=== PATIENT | male | born 1935 | race Caucasian/White ===

== ENCOUNTER → 2020-08-05 13:54 | Outpatient (REF) | payer MEDICARE, SELFPAY ==
--- NOTE | 2020-08-05 14:25 | ECG_ITS ---
Hook-up date: 2020-08-05 14:14:00 Duration: 24:47:00 Test Indications: UNSPEC. BRADYCARDIA Medications: 60082 QRS complexes 47 Ventricular ectopics which represent <1 % of total QRS comp. 12 Supraventricular ectopics which represent <1 % of total QRS comp. * Paced QRS complexs which represent % of total QRS comp. VENTRICULAR ECTOPY 42 Isolated 0 Bigeminal Cycles 1 Couplets 1 Runs 3 Beats in Runs 3 Beats LONGEST at 153 BPM at 10:09:03 2020-08-06 3 Beats FASTEST at 153 BPM at 10:09:03 2020-08-06 SUPRAVENTRICULAR ECTOPY 8 Isolated 2 Couplets 0 Runs 0 Beats in Runs * Beats LONGEST at * BPM at :: -- * Beats FASTEST at * BPM at :: -- HEART RATES 44 MIN at 16:02:12 2020-08-05 61 AVG 107 MAX at 10:02:51 2020-08-06 LONGEST RR 1.5520 secs at 16:11:59 2020-08-05 S-T LEVELS Channel 1 - 128 mm at 14:14:00 2020-08-05 - 128 mm at 14:14:00 2020-08-05 Channel 2 - 128 mm at 14:14:00 2020-08-05 - 128 mm at 14:14:00 2020-08-05 Channel 3 - 128 mm at 03:33:31 -- - 128 mm at 03:33:31 Basic rhythm Normal sinus rhythm No long pause or profound bradycardia Rare Premature ventricular complexes No sustained Atrial fibrillation One 3 beat run of NSVTat 153 bpm Patient did not report any symptoms in the diary Referred By: Mateo Prado Overread By: MATEO PRADO MD
== END ==
LOC: HO.CARD 13:54
PROVIDERS: PCP Internal Medicine; Visit Provider Internal Medicine Cardiovascular Disease
DX: R00.1 Bradycardia, unspecified (principal)
CPT/HCPCS: 93225; 93226

== ENCOUNTER → 2020-08-21 14:03 | Outpatient (BNVA) | payer MEDICARE, SELFPAY | PROVIDERS: PCP Internal Medicine; Visit Provider Internal Medicine Cardiovascular Disease | DX: I48.0 Paroxysmal atrial fibrillation (principal) | CPT/HCPCS: 99212 ==

== ENCOUNTER → 2021-02-25 09:22 | Outpatient (BNVA) | payer MEDICARE, SELFPAY | PROVIDERS: PCP Internal Medicine; Visit Provider Internal Medicine Cardiovascular Disease | DX: I48.0 Paroxysmal atrial fibrillation (principal); I77.89 Other specified disorders of arteries and arterioles | CPT/HCPCS: 93005; 99212 ==

== ENCOUNTER → 2021-03-14 07:28 | Outpatient (REF) | payer MEDICARE, SELFPAY ==
--- NOTE | 2021-03-14 07:30 | CA_ITS ---
Transthoracic Echocardiogram Patient (Last, First, Middle): Bill Hodge D Gender: Male Date of : 1935 Age: 86 Procedure Date: 03/14/2021 Procedure Type: Transthoracic Echocardiogram Location: OP Height: 157.48 cm Weight: 68.95 kg BSA: 1.70 m2 Heart Rate: bpm BP: 118 / 60 mmHg Die Press Operator: Referring MD: Mateo Prado MD Ore Charger: Maeto Prado MD Symptoms: I48.0 - Paroxysmal atrial fibrillation Study Quality: Good ECG Rhythm: Sinus Conclusions: - 1. Normal LV systolic function with grade 1 diastolic dysfunction 2. Mild left atrial enlargement 3. Mild aortic and mitral regurgitation 4. Mildly dilated ascending aorta next 5. Normal RV systolic pressure 6. No pericardial effusion Findings Left Ventricle Normal left ventricular size, thickness, and systolic function. The visually estimated ejection fraction is between 60-65%. Spectral Doppler is indicative of an impaired relaxation filling pattern. E/E prime ratio is <8, consistent with normal filling pressures. Evidence suggests grade I (mild) diastolic dysfunction. Right Ventricle Normal right ventricular cavity size and systolic function. Atria The left atrium is mildly dilated. There is no evidence of interatrial shunt. The right atrium is likely dilated. Aortic Valve Normal aortic valve structure and function. There is no aortic valve stenosis. There is mild aortic valve regurgitation. Mitral Valve Normal mitral valve structure and function. There is mild mitral valve regurgitation. There is no mitral valve stenosis. Pulmonic Valve The pulmonic valve is likely normal. There is trace pulmonic valve regurgitation. Tricuspid Valve Normal tricuspid valve structure. There is mild tricuspid valve regurgitation. The right ventricular systolic pressure is normal. The right ventricular systolic pressure is 19 mmHg. Normal right atrial pressure. There is no evidence of pulmonary hypertension. Great Vessels The pulmonary artery was not well visualized. There is mild dilatation of the ascending aorta measuring 4.00 cm. Venous The inferior vena cava is normal in size and collapses greater than 50% with inspiration. Pericardium/Pleural There is no evidence of pericardial effusion. Prior Study Comparison No significant change compared to prior study dated: 04/25/2019. Measurements 2D Linear Measurements IVSd: 1.12 0.6-0.9/0.6-1.0 cm LVIDd: 4.61 3.9-5.3/4.2-5.9 cm LVIDd Index: 2.71 2.4-3.2/2.2-3.1 cm/m2 LVIDs: 2.58 2.0-3.6 cm LVPWd: 1.08 0.7-1.1 cm Ao Root: 3.50 2.1-3.5 cm LA Diam: 3.20 2.7-3.8/3.0-4.0 cm LAIDs Index: 1.88 1.5-2.3 cm/m2 LV Mass: 226.56 67-162/88-224 g LV Mass Index: 133.27 43-95/49-115 g/m2 LVOT Diam: 2.10 3.0+(-)1.3 cm Mitral Valve MV Pk E: 0.53 MV PK A: 0.83 MV Decel Time: 268.00 E/A: 0.60 E'Lateral: 8.49 E'Medial: 6.09 E/E' Med: 8.70 E/E' Lat: 6.20 PHT: 79.00 MVA PHT: 2.78 Decel [place]: 1.96 Aortic Valve AoV Pk Ciro: 1.32 AoV Mn Ciro: 0.86 AoV VTI: 0.33 AoV Pk Grad: 7.00 Aov Mn Grad: 4.00 BENNY Cont.VTI: 2.50 LVOT LVOT Pk Ciro: 0.98 LVOT Mn Ciro: 0.61 LVOT VTI: 0.24 LVOT Pk Grad: 4.00 LVOT Mn Grad: 2.00 LVOT Diam: 2.10 LVOT Area: 3.46 Diastolic Function MV Pk E: 0.53 MV Pk A: 0.83 E/A: 0.60 E'Medial: 6.09 E/E' Med: 8.70 E' Laterial: 8.49 E/E' Lat: 6.20 Tricuspid Valve TR Pk Ciro: 2.02 TR Pk Grad: 16.00 RA Press: 3.00 RVSP: 19.00 Great Vessels Aorta Ao Root-2D: 3.50 2.0-3.7 cm Ao Asc: 4.00 2.1-3.4 cm Pulmonary Valve PV Pk Ciro: 0.75 Peak PV Grad: 2.00 Updated in Other Vendor System with Status of Final Mateo Prado MD electronically signed on 03/15/2021 2:25:06 PM with status of Final
== END ==
LOC: HO.CARD 07:28
PROVIDERS: PCP Internal Medicine; Visit Provider Internal Medicine Cardiovascular Disease
DX: I48.0 Paroxysmal atrial fibrillation (principal)
CPT/HCPCS: 93306

== ENCOUNTER 2021-05-23 07:53 | Observation (INO) | payer MEDICARE, SELFPAY ==
[2021-05-23] VITALS (11 sets, daily range): BP systolic 104–144; BP diastolic 6–76; PULSE 46–86; RESP 12–20; TEMP 36.1–36.6; O2SAT 95–99; BMI 20.2
--- NOTE | ~2021-05-23 | CT_ITS ---
EXAMINATION: CT HEAD WITHOUT CONTRAST CLINICAL INFORMATION: Lightheadedness COMPARISON: CT head 05/17/2015 TECHNIQUE: Contiguous axial imaging was performed from the skull base to vertex without intravenous administration of contrast. Additional 2-D coronal and sagittal reformatted images are generated on the CT workstation and uploaded to PACS. This CT examination was performed using dose optimization techniques as appropriate, variously including the following: *Automated exposure control *Adjustment of mA and/or kV according to patient size (this includes techniques or standardized protocols for targeted exams where dose is matched to indication/reason for exam; i.e. extremities or head) *Use of iterative reconstruction technique DLP: 629 mGy-cm FINDINGS: There is no intracranial hemorrhage, hematoma, or extra-axial fluid collection. The ventricles are normal in size. There is no hydrocephalus, edema, or mass effect. The hameed-white matter differentiation appears symmetric. There is no visible acute territorial infarct or mass lesion. There are atherosclerotic calcifications involving the distal vertebral and distal internal carotid arteries. The calvarium appears intact. There is no pneumocephalus or orbital emphysema. There are no air-fluid levels in the visualized sinuses and middle ears or mastoids. Some mild mucosal thickening present posterior lateral left maxillary sinus. CT/CT head/brain wo con IMPRESSION: No acute intracranial abnormality.
--- NOTE | ~2021-05-23 | XR_ITS ---
EXAMINATION: XR CHEST CLINICAL INFORMATION: Pneumonia? COMPARISON: 08/21/2019 TECHNIQUE: Frontal view of the chest was obtained. FINDINGS: Lungs are clear. No focal consolidation or mass. Normal pulmonary vascularity. No pleural effusion or pneumothorax. Calcified aortic arch. Degenerative changes of the shoulders. XR/XR chest 1V IMPRESSION: No acute pulmonary disease.
--- NOTE | 2021-05-23 07:39 | ECG_ITS ---
Test Reason : LIGHTHEADED Blood Pressure : / mmHG Vent. Rate : 050 BPM Atrial Rate : 050 BPM P-R Int : 202 ms QRS Dur : 078 ms QT Int : 436 ms P-R-T Axes : 028 028 047 degrees QTc Int : 397 ms Sinus bradycardia Otherwise normal ECG When compared with ECG of 21-AUG-2019 03:18, No significant change was found Referred By: Indio Gaines Electronically Signed By:ELIZABETH MARTINO
[2021-05-23] MEDS: 0.9 % Sodium Chloride 1,000 ML 999 ML IV (08:35)
--- NOTE | 2021-05-23 08:41 | ED.GENADULT ---
HPI - General Adult General Chief complaint: Dizziness Stated complaint: lightheaded Time Seen by Provider: 05/23/21 08:07 Source: patient Mode of arrival: ambulatory Limitations: no limitations History of Present Illness HPI narrative: Patient presents to ED for lightheadedness. Patient states he woke this morning around 06:00 feeling lightheaded. Patient described lightheaded as just feeling off. Patient denies any sensation of dizziness. Patient denies any chest pain, shortness of breath, slurred speech, loss of vision, paralysis of extremities, weakness, difficulty ambulating, or tingling. Patient denies any abdominal pain, constipation, diarrhea, or loss of appetite. Patient did not take his meds this morning so can be evaluated in the ER. Patient takes only taking amiodarone and Xarelto. Patient states just feels a lightheaded. Related Data Home Medications Medication Instructions Recorded Confirmed alendronate 70 mg tablet 70 mg PO QWEEK 08/21/20 05/23/21 calcium carbonate 600 mg calcium 600 mg PO BID 05/23/21 05/23/21 (1,500 mg) tablet (Calcium) multivitamin 1 tab PO DAILY 05/23/21 05/23/21 vit C 250 mg-vit E 90 mg-zinc 40 1 tab PO DAILY 05/23/21 05/23/21 mg-copper 1 [id number]-nintba capsule (PreserVision AREDS-2) Previous Rx's Medication Instructions Recorded amiodarone 200 mg tablet 100 mg PO DAILY 30 Days #15 tab 02/25/21 rivaroxaban 15 mg tablet (Xarelto) 15 mg PO QPM #90 tab 04/08/21 Allergies Allergy/AdvReac Type Severity Reaction Status Date / Time novacain Allergy Unknown syncope Uncoded 04/01/20 00:00 From Novocain AdvReac Severe SYNCOPE Uncoded 05/30/20 16:04 (CHILDHOOD) Novocain AdvReac Unknown syncope Uncoded 05/13/17 00:00 Review of Systems Review of Systems: Yes all other systems are reviewed and are negative Constitutional: Constitutional: Reports as per HPI and Reports no additional constitutional complaints Eyes: Eyes: Reports as per HPI and Reports no additional eye complaints ENT: Reports system reviewed and no additional complaints, except as documented and Reports as per HPI Cardiovascular: Cardiovascular: Reports as per HPI and Reports no additional cardiovascular complaints Respiratory: Respiratory: Reports as per HPI and Reports no additional respiratory complaints Gastrointestinal: Gastrointestinal: Reports as per HPI and Reports no additional gastrointestinal complaints Genitourinary: Genitourinary: Reports no additional male genitourinary complaints and Reports as per HPI Musculoskeletal: Musculoskeletal: Reports no additional musculoskeletal complaints and Reports as per HPI Neurologic: Reports system reviewed and no additional complaints, except as documented and Reports as per HPI Comments: Lightheaded Psychiatric: Psychiatric: Reports no additional psychiatric complaints and Reports as per HPI [facility] Past Medical History Medical History Enlarged thoracic aorta Paroxysmal atrial fibrillation Surgical History Hx of appendectomy Hx of basal cell carcinoma excision Hx of cataract surgery Hx of colonoscopy Hx of hernia repair Hx of prostate biopsy Family History Family History Father Throat cancer Mother Parkinson disease Social History Social History Alcohol intake: never Patient Tobacco Use Status: Former Tobacco user Smoked in Last 30 Days: No Advance Directives: No Physical Exam Vital Signs: Vital Signs: Last Vital Signs Temp 97.9 F 05/23/21 08:36 Pulse 50 05/23/21 12:49 Resp 18 05/23/21 12:49 BP 144/67 H 05/23/21 12:49 Pulse Ox 95 05/23/21 12:49 Body Mass Index 20.2 Const: General: cooperative, healthy appearing, comfortable, no acute distress, well developed, alert, awake and Physically active HENMT: Head: Yes normal to inspection, Yes No palpable skull fracture present, Yes normocephalic and Yes atraumatic Eyes: General: appearance normal, both eyes and all related structures Neck: Neck: Yes normal visual inspection, Yes full ROM, Yes no lymphadenopathy, Yes no meningeal signs, Yes trachea midline, Yes supple and No tender Chest: Chest palpation & inspection: normal inspection of the chest and normal palpation of entire chest wall Resp: Effort & Inspection: normal respiratory effort and able to speak in complete sentences Auscultation: clear to auscultation bilaterally Cardio: Jugular venous distension: no JVD Heart sounds: S1 normal heart sound present and S2 normal heart sound present GI: Inspection: Yes normal to inspection and No abdominal wall ecchymosis Palpation (GI): Soft to palpation, not firm, nontender, no guarding and not rigid : General: No CVA tenderness and Yes no CVA tenderness Back/Spine/Pelvis: Back: no CVA tenderness, No CVA tenderness and No back tenderness Skin: General skin exam: no rashes or lesions noted and elasticity normal Neuro: Other: Negative facial droop. Negative slurred speech. Negative pronator drift. All extremities equal strength 5+. Finger to nose and rapid hand movement intact. Negative rhomberg General: gait normal, no meningeal signs and CN's II-XI intact bilaterally Cranial nerves: Yes CN's II-XII intact bilaterally Extrem: General: Yes normal to inspection and Yes full ROM NIH Stroke Scale Level of Consciousness: Alert Level of Consciousness Questions: Answers both questions correctly Level of Consciousness Commands: Performs both tasks correctly Best Gaze: Normal Visual: No visual loss Facial Palsy: Normal Motor Arm (Right): No drift Motor Arm (Left): No drift Motor Leg (Right): No drift Motor Leg (Left): No drift Limb Ataxia: Absent Sensory: Normal Best Language: No aphasia Dysarthia: Normal Extinction and Inattention: No abnormality Score: 0 Course Course Course Narrative: Negative for any neuro deficit was still do head CT scan. Will order labs including cardiac workup and thyroid level and other electrolytes. EKG ordered Reevaluation(s) Reevaluation #1: Patient heart rate 42 on monitor. EKG sinus bradycardia. Time: 09:08 Reevaluation #2: Chest x-ray negative for pneumonia. COVID swab is negative. UA negative for UTI. Electrolytes are normal. CBCs at baseline. Coags normal. First troponin 5. Head CT normal. Patient has normal gait walk many times to the bathroom by himself. Patient presently denies any dizziness. No indication for head CTA. History physical exam does not indicate stroke. Patient discussed with Dr. White who agree with plan. Time: 10:08 Reevaluation #3: Spoke with Dr. Cook of Cardiology who agrees patient should be admitted to the hospital for bradycardia with heart rate in the 40s with lightheadedness. Time: 11:02 Medical Decision Making MDM Narrative Medical decision making narrative: Symptomatic bradycardia Lab Data Result diagrams: 05/23/21 08:31 05/23/21 08:31 Labs: Lab Results 05/23/21 05/23/21 05/23/21 Range/Units 08:31 08:31 08:31 WBC 5.2 (4.8-10.8) X10*3/uL RBC 4.14 L (4.60-5.80) X10*6/uL Hgb 12.7 L (14.0-18.0) g/dl Hct 38.3 L (42-52) % MCV 92.5 (80-98) fL MCH 30.7 (27.0-33.0) pg MCHC 33.2 (31.0-36.0) g/dl RDW 12.5 (11.0-16.0) % Plt Count 215 (160-400) X10*3/uL MPV 10.4 (9.4-12.4) fL Immature Gran % (Auto) 0.2 (0.0-0.4) % Neut % (Auto) 68.5 (45-73) % Lymph % (Auto) 19.3 L (20-40) % [place] % (Auto) 8.5 (2-11) % Eos % (Auto) 3.1 (0-4) % Baso % (Auto) 0.4 (0-2) % Lymph # (Auto) 1.0 L (1.2-4.9) X10*3/uL [place] # (Auto) 0.4 (0.1-1.2) X10*3/uL Eos # (Auto) 0.2 (0.0-0.4) X10*3/uL Baso # (Auto) 0.0 (0.0-0.2) X10*3/uL Abs Immat Gran (auto) 0.01 (0.00-0.03) X10*3/uL Absolute Neuts (auto) 3.6 (2.0-8.3) X10*3/uL Absolute Nucleated RBC 0.000 (0.0-0.012) X10*3/uL Nucleated RBC % (auto) 0.0 (0.0-0.2) /100WBC PT 12.9 (9.9-13.0) SEC INR 1.1 (0.9-1.1) APTT 35.1 (24.1-38.0) SEC Sodium 141 (135-145) mmol/L Potassium 4.4 (3.3-5.1) mmol/L Chloride 107 (96-108) mmol/L Carbon Dioxide 26 (22-29) mmol/L Anion Gap 12 (12-20) BUN 22 H (9-16) mg/dL Creatinine 1.08 (0.5-1.4) mg/dL Estim Creat Clear Calc 44.5 Estimated GFR > 60 Random Glucose 97 (60-115) mg/dL Calcium 9.0 (8.4-10.2) mg/dL Magnesium 2.3 (1.6-2.6) mg/dL Total Bilirubin 0.7 (0.0-1.0) mg/dL Direct Bilirubin 0.2 (0.0-0.5) mg/dL AST 20 (5-37) U/L ALT 24 (0-40) U/L Alkaline Phosphatase 42 (39-117) U/L Total Creatine Kinase 59 (38-174) U/L Troponin I High Sens (<3.5-35.0) ng/L B-Natriuretic Peptide (<100) pg/mL Total Protein 6.2 L (6.5-8.0) g/dL Albumin 3.8 (3.5-5.0) g/dL Lipase 17 (8-78) U/L TSH (0.32-4.0) uIU/mL Urine Color Urine Appearance Urine pH (5.0-8.0) Ur Specific [place] (1.005-1.025) Urine Protein (NEG-TRACE) MG/DL Urine Glucose (UA) (NEG) MG/DL Urine Ketones (NEG) MG/DL Urine Blood (NEG) Urine Nitrite (NEG) Ur Leukocyte Esterase (NEG) COVID-19 ([facility]) (Negative) COVID-19 Clin Com 05/23/21 05/23/21 05/23/21 Range/Units 08:31 08:31 09:27 WBC (4.8-10.8) X10*3/uL RBC (4.60-5.80) X10*6/uL Hgb (14.0-18.0) g/dl Hct (42-52) % MCV (80-98) fL MCH (27.0-33.0) pg MCHC (31.0-36.0) g/dl RDW (11.0-16.0) % Plt Count (160-400) X10*3/uL MPV (9.4-12.4) fL Immature Gran % (Auto) (0.0-0.4) % Neut % (Auto) (45-73) % Lymph % (Auto) (20-40) % [place] % (Auto) (2-11) % Eos % (Auto) (0-4) % Baso % (Auto) (0-2) % Lymph # (Auto) (1.2-4.9) X10*3/uL [place] # (Auto) (0.1-1.2) X10*3/uL Eos # (Auto) (0.0-0.4) X10*3/uL Baso # (Auto) (0.0-0.2) X10*3/uL Abs Immat Gran (auto) (0.00-0.03) X10*3/uL Absolute Neuts (auto) (2.0-8.3) X10*3/uL Absolute Nucleated RBC (0.0-0.012) X10*3/uL Nucleated RBC % (auto) (0.0-0.2) /100WBC PT (9.9-13.0) SEC INR (0.9-1.1) APTT (24.1-38.0) SEC Sodium (135-145) mmol/L Potassium (3.3-5.1) mmol/L Chloride (96-108) mmol/L Carbon Dioxide (22-29) mmol/L Anion Gap (12-20) BUN (9-16) mg/dL Creatinine (0.5-1.4) mg/dL Estim Creat Clear Calc Estimated GFR Random Glucose (60-115) mg/dL Calcium (8.4-10.2) mg/dL Magnesium (1.6-2.6) mg/dL Total Bilirubin (0.0-1.0) mg/dL Direct Bilirubin (0.0-0.5) mg/dL AST (5-37) U/L ALT (0-40) U/L Alkaline Phosphatase (39-117) U/L Total Creatine Kinase (38-174) U/L Troponin I High Sens 5.2 (<3.5-35.0) ng/L B-Natriuretic Peptide 76 (<100) pg/mL Total Protein (6.5-8.0) g/dL Albumin (3.5-5.0) g/dL Lipase (8-78) U/L TSH (0.32-4.0) uIU/mL Urine Color STRAW Urine Appearance CLEAR Urine pH 7.5 (5.0-8.0) Ur Specific [place] 1.010 (1.005-1.025) Urine Protein NEG (NEG-TRACE) MG/DL Urine Glucose (UA) NEG (NEG) MG/DL Urine Ketones NEG (NEG) MG/DL Urine Blood NEG (NEG) Urine Nitrite NEG (NEG) Ur Leukocyte Esterase NEG (NEG) COVID-19 ([facility]OS[facility]) Negative (Negative) COVID-19 Clin Com See Note 05/23/21 Range/Units 09:45 WBC (4.8-10.8) X10*3/uL RBC (4.60-5.80) X10*6/uL Hgb (14.0-18.0) g/dl Hct (42-52) % MCV (80-98) fL MCH (27.0-33.0) pg MCHC (31.0-36.0) g/dl RDW (11.0-16.0) % Plt Count (160-400) X10*3/uL MPV (9.4-12.4) fL Immature Gran % (Auto) (0.0-0.4) % Neut % (Auto) (45-73) % Lymph % (Auto) (20-40) % [place] % (Auto) (2-11) % Eos % (Auto) (0-4) % Baso % (Auto) (0-2) % Lymph # (Auto) (1.2-4.9) X10*3/uL [place] # (Auto) (0.1-1.2) X10*3/uL Eos # (Auto) (0.0-0.4) X10*3/uL Baso # (Auto) (0.0-0.2) X10*3/uL Abs Immat Gran (auto) (0.00-0.03) X10*3/uL Absolute Neuts (auto) (2.0-8.3) X10*3/uL Absolute Nucleated RBC (0.0-0.012) X10*3/uL Nucleated RBC % (auto) (0.0-0.2) /100WBC PT (9.9-13.0) SEC INR (0.9-1.1) APTT (24.1-38.0) SEC Sodium (135-145) mmol/L Potassium (3.3-5.1) mmol/L Chloride (96-108) mmol/L Carbon Dioxide (22-29) mmol/L Anion Gap (12-20) BUN (9-16) mg/dL Creatinine (0.5-1.4) mg/dL Estim Creat Clear Calc Estimated GFR Random Glucose (60-115) mg/dL Calcium (8.4-10.2) mg/dL Magnesium (1.6-2.6) mg/dL Total Bilirubin (0.0-1.0) mg/dL Direct Bilirubin (0.0-0.5) mg/dL AST (5-37) U/L ALT (0-40) U/L Alkaline Phosphatase (39-117) U/L Total Creatine Kinase (38-174) U/L Troponin I High Sens (<3.5-35.0) ng/L B-Natriuretic Peptide (<100) pg/mL Total Protein (6.5-8.0) g/dL Albumin (3.5-5.0) g/dL Lipase (8-78) U/L TSH 0.81 (0.32-4.0) uIU/mL Urine Color Urine Appearance Urine pH (5.0-8.0) Ur Specific [place] (1.005-1.025) Urine Protein (NEG-TRACE) MG/DL Urine Glucose (UA) (NEG) MG/DL Urine Ketones (NEG) MG/DL Urine Blood (NEG) Urine Nitrite (NEG) Ur Leukocyte Esterase (NEG) COVID-19 ([facility]OS[facility]) (Negative) COVID-19 Clin Com ECG Data Interpretation: Sinus bradycardia. Ventricular rate 50. WI interval 202. QRS 78. QTC 397. Negative STEMI Discharge Plan Discharge Clinical Impression: Symptomatic bradycardia Patient Disposition: Admitted As Inpatient
[2021-05-23 08:42] LABS: MANUAL DIFF FLAG NO
[2021-05-23 08:48] LABS: Basophils Percent Auto 0.4 % (0-2); Eosinophils Absolute Auto 0.2 X10*3/uL (0.0-0.4); Eosinophils Percent Auto 3.1 % (0-4); Hematocrit 38.3 % (42-52); Hemoglobin 12.7 g/dl (14.0-18.0); Imm Gran Abs Auto 0.01 X10*3/uL (0.00-0.03); Imm Gran Pct Auto 0.2 % (0.0-0.4); Lymphocytes Percent Auto 19.3 % (20-40); Mean Corpuscular HGB Conc 33.2 g/dl (31.0-36.0); Mean Corpuscular Hemoglobin 30.7 pg (27.0-33.0); Mean Corpuscular Volume 92.5 fL (80-98); Mean Platelet Volume 10.4 fL (9.4-12.4); Monocytes Absolute Auto 0.4 X10*3/uL (0.1-1.2); Monocytes Percent Auto 8.5 % (2-11); Neutrophils Absolute Auto 3.6 X10*3/uL (2.0-8.3); Neutrophils Percent Auto 68.5 % (45-73); Platelet Count 215 X10*3/uL (160-400); Red Blood Count 4.14 X10*6/uL (4.60-5.80); Red Cell Distribution Width 12.5 % (11.0-16.0); White Blood Count 5.2 X10*3/uL (4.8-10.8)
[2021-05-23 08:57] LABS: INTERNATIONAL NORM RATIO 1.1 (0.9-1.1); Prothrombin Time 12.9 SEC (9.9-13.0)
[2021-05-23 08:58] LABS: COVID-19 Test Negative (Negative)
[2021-05-23 09:00] LABS: Partial Thromboplastin Time 35.1 SEC (24.1-38.0)
[2021-05-23 09:07] LABS: Alanine Aminotransferase 24 U/L (0-40); Albumin Level 3.8 g/dL (3.5-5.0); Alkaline Phosphatase 42 U/L (39-117); Anion Gap 12 (12-20); Aspartate Amino Transferase 20 U/L (5-37); Bilirubin Direct 0.2 mg/dL (0.0-0.5); Bilirubin Total 0.7 mg/dL (0.0-1.0); Blood Urea Nitrogen 22 mg/dL (9-16); Carbon Dioxide 26 mmol/L (22-29); Chloride 107 mmol/L (96-108); Creatinine Clr Calc Pharmacy 44.5; Estimated Glomerular Filt Rate > 60; Glucose Random 97 mg/dL (60-115); Lipase 17 U/L (8-78); Magnesium 2.3 mg/dL (1.6-2.6); Potassium 4.4 mmol/L (3.3-5.1); Sodium 141 mmol/L (135-145); Total Protein 6.2 g/dL (6.5-8.0)
[2021-05-23 09:11] LABS: B Type Natriuretic Peptide 76 pg/mL (<100); Troponin-I High Sensitivity 5.2 ng/L (<3.5-35.0)
[2021-05-23 09:36] LABS: Appearance Urine CLEAR; Color Urine STRAW; Glucose Urine UA NEG (NEG); Leukocyte Esterase Urine NEG (NEG); Nitrite Urine NEG (NEG); PH 7.5 (5.0-8.0); Urine Blood NEG (NEG); Urine Ketones NEG (NEG); Urine Protein NEG (NEG-TRACE)
[2021-05-23 10:27] LABS: Thyroid Stimulating Hormone 0.81 uIU/mL (0.32-4.0)
--- NOTE | 2021-05-23 13:57 | P.HPHOSP_ITS ---
History of Present Illness Date of Service: 05/23/21 Chief Complaint: Lightheadedness, I just dont feel well This is an 86 yo M with a PMH of PAF - maintained in sinus on Amiodarone and anticoagluated with Xarelto who presents to the hospital with complaints of lightheadedness and generally feeling unwell. Patient reports that he woke up this morning and felt lightheaded. When asked to describe exactly what this meant, he reported, after struggling to be specific, that he just felt unwell. He answers no to feeling dizzy. Denies any sensation of the room spinning. Denies any feelings of nausea. Denies any palpitations, shortness of breath or chest pain. He reports that after he ambulated to the bathroom this morning, he had a sudden onset of not feeling well and because he has had symptomatic A. Fib -- he called the paramedics and presented to the hospital. While in the ED, he was noted to be sinus june on the jump iron machine presser with HR decreasing into the 40s. He underwent orthostatic vitals which were negative. His blood work including cbc, cmp, tsh, bnp where essentially within normal limits. However, he remained in sinus june. The case was d/w by the ED provider (out of concern for symptomatic bradycardia) with cardiology (see their note for full details). the patient will be observed over night. When I saw the patient in the ED, he reported feeling some what better compared to this morning. Review of Systems Review of Systems: General - denies fevers or chills, denies weakness or fatigue; +generalized malaise HEENT -denies blurred vision, denies headache, denies sore throat Cardiovascular - denies chest pain or palpitations, denies edema; +lightheadedness Respiratory - denies shortness of breath, coughing, wheezing Gastrointestinal - denies abdominal pain, nausea, vomiting, diarrhea - denies flank pain, denies dysuria, denies frequency or urgency Musculoskeletal - denies back pain, denies hip pain, denies knee pain, denies shoulder pain Neurological - denies any focal weakness or numbness Skin, denies any bruising or redness Psychiatric - denies any suicidal ideation, hallucinations, homicidal ideation Endocrinology - denies intolerance to hot / cold temperatures [facility] Medical History Enlarged thoracic aorta Paroxysmal atrial fibrillation Family History Father Throat cancer Mother Parkinson disease Surgical History Hx of appendectomy Hx of basal cell carcinoma excision Hx of cataract surgery Hx of colonoscopy Hx of hernia repair Hx of prostate biopsy Social History Alcohol intake: never Patient Tobacco Use Status: Former Tobacco user Smoked in Last 30 Days: No Advance Directives: No Meds Allergies Allergy/AdvReac Type Severity Reaction Status Date / Time novacain Allergy Unknown syncope Uncoded 04/01/20 00:00 From Novocain AdvReac Severe SYNCOPE Uncoded 05/30/20 16:04 (CHILDHOOD) Novocain AdvReac Unknown syncope Uncoded 05/13/17 00:00 Active Medications: Current Medications Generic Name Dose Route Start Last Admin Trade Name Freq PRN Reason Stop Dose Admin Acetaminophen 650 mg 05/23/21 13:48 Acetaminophen 325 Mg Tablet PO Q6H PRN Pain, Mild (Pain Scale 1-3) Ondansetron HCl 4 mg 05/23/21 13:48 Ondansetron Hcl 4 Mg/2 Ml Vial IVPUSH Q8H PRN Nausea and Vomiting Pharmacy Consult 1 each 05/23/21 13:16 Consult Rx Perform Med Rec MISCELLANE ONCE PRN Consult order Sodium Chloride 3 ml 05/23/21 16:00 0.9 % Sodium Chloride Flush 3 Ml Syringe [facility] [place] Home Medications Medication Instructions Recorded Confirmed Last Taken Type albuterol sulfate 90 mcg/actuation 2 puff INHALATION Q4-6H 08/21/20 02/25/21 Unknown History aerosol inhaler alendronate 70 mg tablet 70 mg PO QWEEK 08/21/20 02/25/21 Unknown History desoximetasone 0.25 % topical cream 1 appl TOPICAL BID 08/21/20 02/25/21 Unknown History fluticasone propionate 50 INTRANASAL 08/21/20 02/25/21 Unknown History mcg/actuation nasal spray,suspension Physical Exam Vital Signs and Narrative: Vital Signs: Last Vital Signs Temp 97.9 F 05/23/21 08:36 Pulse 50 05/23/21 12:49 Resp 18 05/23/21 12:49 BP 144/67 H 05/23/21 12:49 Pulse Ox 95 05/23/21 12:49 Body Mass Index 20.2 Const: Other: Constitutional - Awake and Alert, No apparent distress Eyes - PERRLA, EOMI Cardiovascular - S1S2, regular rhythm, rate in the 50s Respiratory - Normal lung expansion, Normal respiratory effort, No respiratory distress, CTA bilaterally Gastrointestinal - NT / ND; +BS; No rebound or guarding - No CVA tenderness Extremities - no calf tenderness bilaterally, no swelling Musculoskeletal - Normal inspection, normal ROM Skin - Warm/Dry Neurological - Alert & oriented x3, No focal deficit Psychological - Appropriate affect Results Labs CBC and Chem 7: 05/23/21 08:31 05/23/21 08:31 Labs: Laboratory Results - last 24 hr 05/23/21 05/23/21 05/23/21 08:31 08:31 08:31 MCV 92.5 MCH 30.7 MCHC 33.2 RDW 12.5 Plt Count 215 MPV 10.4 Immature Gran % (Auto) 0.2 Neut % (Auto) 68.5 Lymph % (Auto) 19.3 L [place] % (Auto) 8.5 Eos % (Auto) 3.1 Baso % (Auto) 0.4 Lymph # (Auto) 1.0 L [place] # (Auto) 0.4 Eos # (Auto) 0.2 Baso # (Auto) 0.0 Abs Immat Gran (auto) 0.01 Absolute Neuts (auto) 3.6 Absolute Nucleated RBC 0.000 Nucleated RBC % (auto) 0.0 PT 12.9 INR 1.1 APTT 35.1 Anion Gap 12 Estim Creat Clear Calc 44.5 Estimated GFR > 60 Random Glucose 97 Calcium 9.0 Magnesium 2.3 Total Bilirubin 0.7 Direct Bilirubin 0.2 AST 20 ALT 24 Alkaline Phosphatase 42 Total Creatine Kinase 59 Troponin I High Sens B-Natriuretic Peptide Total Protein 6.2 L Albumin 3.8 Lipase 17 TSH Urine Color Urine Appearance Urine pH Ur Specific Liberty Urine Protein Urine Glucose (UA) Urine Ketones Urine Blood Urine Nitrite Ur Leukocyte Esterase COVID-19 ([facility]) COVID-19 Clin Com 05/23/21 05/23/21 05/23/21 08:31 08:31 09:27 MCV MCH MCHC RDW Plt Count MPV Immature Gran % (Auto) Neut % (Auto) Lymph % (Auto) [place] % (Auto) Eos % (Auto) Baso % (Auto) Lymph # (Auto) [place] # (Auto) Eos # (Auto) Baso # (Auto) Abs Immat Gran (auto) Absolute Neuts (auto) Absolute Nucleated RBC Nucleated RBC % (auto) PT INR APTT Anion Gap Estim Creat Clear Calc Estimated GFR Random Glucose Calcium Magnesium Total Bilirubin Direct Bilirubin AST ALT Alkaline Phosphatase Total Creatine Kinase Troponin I High Sens 5.2 B-Natriuretic Peptide 76 Total Protein Albumin Lipase TSH Urine Color STRAW Urine Appearance CLEAR Urine pH 7.5 Ur Specific Liberty 1.010 Urine Protein NEG Urine Glucose (UA) NEG Urine Ketones NEG Urine Blood NEG Urine Nitrite NEG Ur Leukocyte Esterase NEG COVID-19 ([facility]) Negative COVID-19 Clin Com See Note 05/23/21 09:45 MCV MCH MCHC RDW Plt Count MPV Immature Gran % (Auto) Neut % (Auto) Lymph % (Auto) [place] % (Auto) Eos % (Auto) Baso % (Auto) Lymph # (Auto) [place] # (Auto) Eos # (Auto) Baso # (Auto) Abs Immat Gran (auto) Absolute Neuts (auto) Absolute Nucleated RBC Nucleated RBC % (auto) PT INR APTT Anion Gap Estim Creat Clear Calc Estimated GFR Random Glucose Calcium Magnesium Total Bilirubin Direct Bilirubin AST ALT Alkaline Phosphatase Total Creatine Kinase Troponin I High Sens B-Natriuretic Peptide Total Protein Albumin Lipase TSH 0.81 Urine Color Urine Appearance Urine pH Ur Specific Liberty Urine Protein Urine Glucose (UA) Urine Ketones Urine Blood Urine Nitrite Ur Leukocyte Esterase COVID-19 ([facility]) COVID-19 Clin Com ECG Attestation: I personally reviewed and interpreted this ECG as follows: (Sinus june without any significant blocks or ST-T wave changes, unchanged from prior) ECG interpretation date: 05/23/21 ECG interpretation time: 14:07 Imaging Radiologist's Impressions: Impressions Chest X-Ray 05/23/21 08:17 IMPRESSION: No acute pulmonary disease. Head CT 05/23/21 08:17 IMPRESSION: No acute intracranial abnormality. Assessment and Plan (1) Paroxysmal atrial fibrillation: Status: Acute This is a 86 yo M with a PMH of PAF - maintained on sinus with amio and on OAC with Xarelto who presents with sudden onset lightheadedness and generalized malaise. His EKG and telemonitor show sinus bradycardia. He will be observed over night for any cardiac cause of his symptoms. 1. Sinus Bradycardia unlikely his lightheadedness is related to this EKG / telemonitor do not show any significant heart blocks will continue with telemonitoring overnight Cardiology evaluation Continue i Amio + Xarelto 2. Lightheadedness doubt related to above reports it has improved with IVF orthostatic vitals negative, but taken after IVF will repeat orthos tomorrow Am continue other baseline meds once med rec completed. Quality Stroke Does the patient have a stroke diagnosis?: No VTE Prior VTE?: No VTE Risk Level:: Medical - low VTE Device Contraindication: Treatment Not Indicated VTE Drug Contraindication: N/A - Med Ordered
--- NOTE | 2021-05-23 14:45 | PHA.MEDREC ---
Pharmacy Consult ? Medication Reconciliation Pharmacy has completed the medication reconciliation. There are no remarkable issue for provider's attention. Ivonne Rangel, NagaD
[2021-05-23] MEDS: Rivaroxaban 15 MG TABLET PO (17:17)
[2021-05-24] VITALS (7 sets, daily range): BP systolic 104–143; BP diastolic 58–81; PULSE 50–62; RESP 18; TEMP 36.1–36.6; O2SAT 99–100
[2021-05-24] MEDS: Amiodarone HCL 200 MG TABLET 100 MG PO (09:55)
[2021-05-24] MEDS: 0.9 % Sodium Chloride Flush 3 ML SYRINGE IVFLUSH (09:56)
[2021-05-24] MEDS: Multivitamin TABLET 1 TAB PO (09:57)
--- NOTE | 2021-05-24 10:34 | MHC.CM.PN ---
ROBSON 05/24/21 MALE 86 DX LIGHTHEADED. He lives with his . He is independent all functional mobility. DP home no services. Pts will provide transportation. CM will follow.
--- NOTE | 2021-05-24 11:24 | P.CONCA_ITS ---
History of Present Illness History of Present Illness Date of Service: 05/24/21 Chief complaint: lightheaded Narrative: This is a cardiology consultation regarding lightheadedness. Patient has a history of paroxysmal atrial fibrillation maintained on amiodarone 200 mg daily. He is also on Xarelto. Yesterday he was just not feeling good and woke up with lightheadedness. No clear presyncopal or syncopal symptoms are in fact near cardiac symptoms like angina or shortness of breath or palpitations among others. Also not clear if he is describing orthostatic symptoms are just nonspecific dizziness as he kept stating he woke up with feeling lightheaded. He has just been in sinus bradycardia since arrival but nothing profound. Review of Systems Review of Systems: Yes all other systems are reviewed and are negative Cardiovascular: Cardiovascular: Reports as per HPI, Reports no additional cardiovascular complaints, Denies acrocyanosis, Denies cool extremities, Denies painful fingertips, Denies chest pain, Denies chest pain at rest, Denies diap horesis, Denies syncope, Denies irregular heart rhythm, Denies claudication, Denies leg edema, Reports lightheadedness, Denies palpitations and Denies dyspnea Respiratory: Respiratory: Denies dyspnea Neurologic: Denies syncope Endocrine: Endocrine: Denies palpitations PMFSH Past Medical History Medical History Enlarged thoracic aorta Paroxysmal atrial fibrillation Family History Family History Father Throat cancer Mother Parkinson disease Surgical History Surgical History Hx of appendectomy Hx of basal cell carcinoma excision Hx of cataract surgery Hx of colonoscopy Hx of hernia repair Hx of prostate biopsy Social History Social History Alcohol intake: never Patient Tobacco Use Status: Former Tobacco user Smoked in Last 30 Days: No Advance Directives: No service: Yes Current occupational status: retired Meds Allergies Allergy/AdvReac Type Severity Reaction Status Date / Time novacain Allergy Unknown syncope Uncoded 04/01/20 00:00 From Novocain AdvReac Severe SYNCOPE Uncoded 05/30/20 16:04 (CHILDHOOD) Novocain AdvReac Unknown syncope Uncoded 05/13/17 00:00 Active Medications: Current Medications Generic Name Dose Route Start Last Admin Trade Name Zach PRN Reason Stop Dose Admin Acetaminophen 650 mg 05/23/21 13:48 Acetaminophen 325 Mg Tablet PO Q6H PRN Pain, Mild (Pain Scale 1-3) Amiodarone HCl 100 mg 05/24/21 09:00 05/24/21 09:55 Amiodarone Hcl 200 Mg Tablet PO 100 mg DAILY MARILY Administration Multivitamins/Vitamin C 1 tab 05/24/21 09:00 05/24/21 09:57 Multivitamin Tablet PO 1 tab DAILY MARILY Administration Ondansetron HCl 4 mg 05/23/21 13:48 Ondansetron Hcl 4 Mg/2 Ml Vial IVPUSH Q8H PRN Nausea and Vomiting Pharmacy Consult 1 each 05/23/21 13:16 Consult Rx Perform Med Rec MISCELLANE ONCE PRN Consult order Rivaroxaban 15 mg 05/23/21 18:00 05/23/21 17:17 Rivaroxaban 15 Mg Tablet PO 15 mg DAILY@1800 MARILY Administration Sodium Chloride 3 ml 05/23/21 16:00 05/24/21 09:56 0.9 % Sodium Chloride Flush 3 Ml Syringe IVFLUSH 3 ml QSHIFT MARILY Administration Home Medications Medication Instructions Recorded Confirmed Last Taken Type alendronate 70 mg tablet 70 mg PO QWEEK 08/21/20 05/23/21 05/22/21 History calcium carbonate 600 mg calcium 600 mg PO BID 05/23/21 05/23/21 05/22/21 History (1,500 mg) tablet (Calcium) multivitamin 1 tab PO DAILY 05/23/21 05/23/21 05/22/21 History vit C 250 mg-vit E 90 mg-zinc 40 1 tab PO DAILY 05/23/21 05/23/21 05/22/21 History mg-copper 1 [id number]-skroda capsule (PreserVision AREDS-2) Physical Exam Vital Signs: Vital Signs: Last Vital Signs Temp 97 F 05/24/21 10:59 Pulse 55 05/24/21 10:59 Resp 18 05/24/21 10:59 BP 104/58 L 05/24/21 10:59 Pulse Ox 99 05/24/21 10:59 Body Mass Index 20.2 Const: General: cooperative and no acute distress HENMT: Other: Unremarkable Neck: Neck: Yes normal visual inspection Chest: Chest palpation & inspection: normal inspection of the chest Resp: Auscultation: clear to auscultation bilaterally, no crackles and no wheezes Cardio: Jugular venous distension: no JVD Palpation: normal PMI Heart sounds: S1 normal heart sound present, S2 normal heart sound present, no gallops, no murmurs and no rubs GI: Palpation (GI): Soft to palpation Back/Spine/Pelvis: Other: unremarkable Skin: General skin exam: no rashes or lesions noted Neuro: Cranial nerves: Yes Other cranial nerve findings present Extrem: General: Yes no clubbing, cyanosis or edema Psych: Mental Status: other Results Labs and Meds Result diagrams: 05/23/21 08:31 05/23/21 08:31 ECG Interpretation: EKG shows sinus bradycardia at 50/minute. ME interval is 202 milliseconds. QTc 397 milliseconds. In 2019, EKG showed sinus bradycardia at 55/Min. Assessment and Plan (1) Symptomatic bradycardia: Status: Acute (2) Paroxysmal atrial fibrillation: Status: Acute He is slightly bradycardic but nothing profound. No evidence of any high- grade AV block on telemetry. As mentioned above, even the EKG from 2019 shows sinus bradycardia. Hence I am not entirely clear if the bradycardia is making him lightheaded or if this is something very nonspecific. Blood pressure is slightly on the lower side but again not too hypotensive to cause dizziness. Today he states that he is actually back to his normal self. Hence I would let him go home without any medication changes. Will arrange 3 day Holter monitor and then follow up in the office. Procedures Date of Service Date of Service: 05/24/21
--- NOTE | 2021-05-24 11:38 | P.DS_ITS ---
DS: Providers Provider Date of Service: 05/24/21 Date of admission: 05/23/21 13:48 Primary care physician: Giancarlo Almendarez MD Consults: 05/23/21 13:50 Consult to Cardiology Routine Consulting Provider: [facility] [place] Cardiovascular Services Reason for consultation: lightheadedness Attending physician on discharge: [facility] DS: Diagnosis Discharge Diagnosis (1) Symptomatic bradycardia: Status: Acute (2) Paroxysmal atrial fibrillation: Status: Acute DS: Summary Hospital Course Hospital Course: From H&P on day of admission This is an 86 yo M with a PMH of PAF - maintained in sinus on Amiodarone and anticoagluated with Xarelto who presents to the hospital with complaints of lightheadedness and generally feeling unwell. Patient reports that he woke up this morning and felt lightheaded. When asked to describe exactly what this meant, he reported, after struggling to be specific, that he just felt unwell. He answers no to feeling dizzy. Denies any sensation of the room spinning. Denies any feelings of nausea. Denies any palpitations, shortness of breath or chest pain. He reports that after he ambulated to the bathroom this morning, he had a sudden onset of not feeling well and because he has had symptomatic A. Fib -- he called the paramedics and presented to the hospital. While in the ED, he was noted to be sinus june on the legislative aide with HR decreasing into the 40s. He underwent orthostatic vitals which were negative. His blood work including cbc, cmp, tsh, bnp where essentially within normal limits.? However, he remained in sinus june. The case was d/w by the ED provider (out of concern for symptomatic bradycardia) with cardiology (see their note for full details). the patient will be observed over night. When I saw the patient in the ED, he reported feeling some what better compared to this morning. Due to feeling lightheaded and ?off? the patient was admitted to the intermediate care unit for cardiac monitoring. He did not have any symptoms of shortness of breath, chest pain, palpitations. Heart rate remained in the high 40s and low 50s. No syncope or pre-syncope. Orthostatic blood pressures were negative. EKG showed sinus bradycardia with no evidence of high-grade heart block. Symptoms do not seem to be secondary to heart rate. This morning patient feels back to his baseline. He is eager to return home. He was evaluated by Cardiology due to not feeling the symptoms were secondary to his bradycardia and recommended outpatient Holter monitor and to follow-up in the office. No adjustments to his medications were made. Time Spent with Patient Time attestation: Total time spent providing and/or coordinating discharge services: Discharge coordination time: Greater than 30 minutes Quality: Stroke Does the patient have a stroke diagnosis?: No Physical Exam Vital Signs: Vital Signs: Last Vital Signs Temp 97 F 05/24/21 10:59 Pulse 55 05/24/21 10:59 Resp 18 05/24/21 10:59 BP 104/58 L 05/24/21 10:59 Pulse Ox 99 05/24/21 10:59 Body Mass Index 20.2 Const: Nutritional Appearance: well nourished Orientation/consciousness: patient oriented x3 HENMT: Head: Yes normocephalic and Yes atraumatic Eyes: Sclerae: sclerae normal Chest: Chest palpation & inspection: normal inspection of the chest Resp: Effort & Inspection: normal respiratory effort and no respiratory distress Cardio: Rate: bradycardic GI: Palpation (GI): Soft to palpation and nontender Neuro: General: patient oriented x3 Cranial nerves: Yes CN's II-XII intact bilaterally and Yes Bilaterally intact EOM present Discharge Plan Discharge Patient Disposition: Home, Self-Care Referrals: Giancarlo Almendarez MD [Primary Care Provider] - 1 Week Gavin Cook MD [Physician] - 1 Week Discharge Medications: Continued amiodarone 200 mg tablet 100 mg PO DAILY 30 Days Qty: 15 RF: 5 rivaroxaban [Xarelto] 15 mg tablet 15 mg PO QPM Qty: 90 RF: 3 multivitamin Tablet 1 tab PO DAILY RF: 0 calcium carbonate [Calcium 600] 600 mg calcium (1,500 mg) Tablet 600 mg PO BID RF: 0 PreserVision AREDS-2 250-90-40-1 mg Capsule 1 tab PO DAILY RF: 0 alendronate 70 mg tablet 70 mg PO QWEEK RF: 0 Discharge Orders: Discharge Order (Routine); Ordered 05/24/21 Ordered By: Keren Albright Activity on Discharge: As tolerated Stand Alone Forms: Patient Portal Discharge page Care Plan Goals: See below Health Concerns: Lightheaded. resolved Bradycardia. atrial fibrillation. controlled Plan of Treatment: Bradycardia not likely the causing symptoms No medication adjustments are necessary Please call to schedule follow-up appointment with the cardiology office to arr edson for Holter monitor and follow-up in the office Assessment: See discharge summary
--- NOTE | 2021-05-24 11:56 | MHC.CM.PN ---
IMM 05/24/21 Male DX Lightheaded. He is discharged to home today. No services ordered.His is providing transportation home.
== END 2021-05-24 13:33 | disposition home or self-care (01) ==
LOC: HO.ED 09:54 → HO.IMC 15:42
PROVIDERS: Physician Assistant; Admitting Provider Family Medicine; Emergency Provider Emergency Medicine; PCP Internal Medicine; Visit Provider Physician Assistant Medical
DX: I48.0 Paroxysmal atrial fibrillation (principal); R00.1 Bradycardia, unspecified; I35.8 Other nonrheumatic aortic valve disorders; Z87.891 Personal history of nicotine dependence; Z79.01 Long term (current) use of anticoagulants; Z88.4 Allergy status to anesthetic agent; Z79.899 Other long term (current) drug therapy; Z20.822 Contact with and (suspected) exposure to COVID-19
CPT/HCPCS: 36415; 70450; 71045; 80053; 81003; 82248; 82550; 83690; 83735; 83880; 84443; 84484; 85025; 85610; 85730; 87635; 93005; 96361; 96374; 99205; 99219; 99285

== ENCOUNTER → 2021-06-02 06:54 | Outpatient (REF) | payer MEDICARE, SELFPAY ==
--- NOTE | 2021-06-02 06:58 | HM_ITS ---
Total monitoring time 2 days and 9 hours. Underlying rhythm is sinus. Minimum heart rate 43/Min. Maximum 125/Min. Average 57/Min. About 12% of the time, rate < 60/Min. No significant tachycardia. No atrial fibrillation or flutter. No pauses. Rare PACs with a burden of only 0.23%. Very rare PVCs. No patient events. MTDD
== END ==
LOC: HO.CARD 06:54
PROVIDERS: Visit Provider Internal Medicine Cardiovascular Disease
DX: I48.0 Paroxysmal atrial fibrillation (principal)
CPT/HCPCS: 93242

== ENCOUNTER → 2021-06-24 14:09 | Outpatient (BNVA) | payer MEDICARE, SELFPAY | PROVIDERS: PCP Internal Medicine; Visit Provider Nurse Practitioner Family | DX: I48.0 Paroxysmal atrial fibrillation (principal); I77.810 Thoracic aortic ectasia; R00.2 Palpitations; R00.1 Bradycardia, unspecified; R42 Dizziness and giddiness; Z87.891 Personal history of nicotine dependence; Z88.8 Allergy status to other drugs, medicaments and biological substances; Z79.899 Other long term (current) drug therapy | CPT/HCPCS: 99212 ==

== ENCOUNTER → 2021-07-02 14:02 | Outpatient (REF) | payer MEDICARE, SELFPAY ==
--- NOTE | 2021-07-02 14:05 | HM_ITS ---
REQUESTING PROVIDER: Estela Malone NP. REASON FOR TEST: Paroxysmal atrial fibrillation with palpitations. FINDINGS: The patient was hooked up to cardiac event monitor from 07/02/2021 to 08/01/2021 for a total period of 30 days. The patient's predominant baseline rhythm is normal sinus rhythm with heart rate varying from 54 beats per minute to 102 beats per minute. There were multiple episodes of intermittent atrial flutter and fibrillation noted. Heart rate varying from mostly around 120-130 beats per minute while in atrial flutter or fibrillation. There were rare isolated PACs and PVCs noted. There were also isolated PVCs noted and ventricular couplets noted. The patient had episodes of atrial fibrillation on 07/02 at 8 p.m. that were not detected by him. The patient had other episodes of atrial fibrillation on 07/07 at 5 a.m. where he had symptoms of fluttering which correlated with atrial flutter at 126 beats per minute. Atrial flutter lasted for an hour and half. On the same day, the patient complained of dizziness that correlated with sinus tachycardia. The patient then also while exercising on 07/08/2021 at 7:45 a.m. complained of dizziness which correlated to atrial fibrillation with rapid ventricular response. The patient had other symptoms of dizziness which correlated with 1 episode of nonsustained VT on 07/13/2021 at 8 a.m. while resting. The patient also had symptoms of racing or fluttering on 07/29/2021, which correlated with sinus rhythm with ventricular couplets and then atrial fibrillation of 107 beats per minute. CONCLUSION: 1. Baseline rhythm was normal sinus rhythm with intermittent episodes of atrial fibrillation with small burden. 2. The patient's symptoms of dizziness and fluttering correlated with atrial flutter and fibrillation with rapid ventricular response. 3. Episodes of nonsustained VT with ventricular ectopy were noted. Mateo Prado MD NRS/MODL / [id number]
== END ==
LOC: HO.CARD 14:02
PROVIDERS: PCP Internal Medicine; Visit Provider Internal Medicine Cardiovascular Disease
DX: R00.2 Palpitations (principal); I48.0 Paroxysmal atrial fibrillation
CPT/HCPCS: 93270

== ENCOUNTER 2021-08-21 09:28 | Outpatient (REF) | payer MEDICARE, SELFPAY ==
[2021-08-21 11:20] LABS: Anion Gap 12 (12-20); Blood Urea Nitrogen 29 mg/dL (9-16); Calcium 9.6 mg/dL (8.4-10.2); Carbon Dioxide 29 mmol/L (22-29); Chloride 103 mmol/L (96-108); Estimated Glomerular Filt Rate 51; Glucose Random 97 mg/dL (60-115); Potassium 4.6 mmol/L (3.3-5.1); Sodium 139 mmol/L (135-145)
== END 2021-08-21 09:29 | disposition home or self-care (01) ==
LOC: HO.LAB 09:28
PROVIDERS: PCP Internal Medicine; Visit Provider Internal Medicine Cardiovascular Disease
DX: I48.0 Paroxysmal atrial fibrillation (principal); I77.89 Other specified disorders of arteries and arterioles
CPT/HCPCS: 36415; 80048; 93005; 99212

== ENCOUNTER 2021-08-23 09:37 | Outpatient (REF) | payer MEDICARE, SELFPAY ==
--- NOTE | ~2021-08-23 | XR_ITS ---
EXAMINATION: XR TEMPOROMANDIBULAR JOINT, BILATERAL CLINICAL INFORMATION: Right-sided jaw pain. Sprain. COMPARISON: Previous head CT 05/23/2021 TECHNIQUE: Bilateral open and closed mouth views of the temporomandibular joints and David/AP view of the mandible was performed. FINDINGS: There is no fracture or dislocation. There is question of decreased anterior translocation bilaterally with the patient opens his mouth.. There are degenerative changes of the cervical spine. XR/XR TMJ BI IMPRESSION: No fracture or dislocation. Question decreased anterior translocation bilaterally.
== END 2021-08-23 09:38 | disposition home or self-care (01) ==
LOC: HO.HMGCX 09:37
PROVIDERS: PCP Internal Medicine; Visit Provider Physician Assistant Medical
DX: S03.4 Sprain of jaw (principal)
CPT/HCPCS: 70330

== ENCOUNTER → 2021-12-03 13:49 | Outpatient (BNVA) | payer MEDICARE, SELFPAY | PROVIDERS: PCP Internal Medicine; Visit Provider Nurse Practitioner Family | DX: I48.0 Paroxysmal atrial fibrillation (principal); I77.89 Other specified disorders of arteries and arterioles | CPT/HCPCS: 93005; 99212 ==

== ENCOUNTER → 2021-12-08 07:04 | Outpatient (REF) | payer MEDICARE, SELFPAY ==
--- NOTE | 2021-12-08 07:07 | HM_ITS ---
* Total monitoring time 13 days and 23 hours. * Underlying rhythm is sinus. Average rate 63/Min. * About 3% of the time, atrial fibrillation/flutter (more flutter appearing). Longest episode 5 hours 20 minutes. Rapid rates noted. Fastest episode 140s/min. * No significant pauses. * Occasional supraventricular ectopy. [place] of 1.3%. * Rare ventricular ectopy. Minimal burden. 2 episodes, longest 6 beats. Could also be supraventricular. * No patient events. MTDD
== END ==
LOC: HO.CARD 07:04
PROVIDERS: Visit Provider Nurse Practitioner Family
DX: I48.0 Paroxysmal atrial fibrillation (principal)
CPT/HCPCS: 93246

== ENCOUNTER → 2022-01-27 09:39 | Outpatient (BNVA) | payer MEDICARE, SELFPAY | PROVIDERS: PCP Internal Medicine; Visit Provider Surgery | DX: K40.30 Unilateral inguinal hernia, with obstruction, without gangrene, not specified as recurrent (principal); R00.2 Palpitations; R00.1 Bradycardia, unspecified; I77.89 Other specified disorders of arteries and arterioles; I48.0 Paroxysmal atrial fibrillation; Z79.01 Long term (current) use of anticoagulants; S03.40XS Sprain of jaw, unspecified side, sequela | CPT/HCPCS: 99202 ==

== ENCOUNTER 2022-01-28 10:58 | Day surgery (SDC) | payer MEDICARE, SELFPAY ==
[2022-01-28] VITALS (13 sets, daily range): BP systolic 127–157; BP diastolic 61–77; PULSE 50–68; RESP 14–18; TEMP 36.1–36.9; O2SAT 95–100; BMI 20.6
--- NOTE | 2022-01-28 11:52 | MHC.SHP ---
Pre-Procedural Eval Section A Date of Service: 01/28/22 The patient is an INPATIENT: No The History & Physical has been completed within 30 days and I have reviewed it.: Yes Section B Chief Complaint: inguinal hernia Allergies: Allergies Allergy/AdvReac Type Severity Reaction Status Date / Time novacain Allergy Unknown syncope Uncoded 01/28/22 11:48 Plan I have reviewed the history and physical and performed a pertinent physical examination on my patient. No changes have occurred unless specified.
[2022-01-28 12:10] LABS: Hematocrit 37.7 % (42.0-52.0); Mean Corpuscular HGB Conc 31.8 g/dl (31.0-36.0); Mean Corpuscular Hemoglobin 28.9 pg (27.0-33.0); Mean Corpuscular Volume 90.8 fL (80.0-98.0); Mean Platelet Volume 10.3 fL (9.4-12.4); Platelet Count 222 X10*3/uL (160-400); Red Blood Count 4.15 X10*6/uL (4.60-5.80); Red Cell Distribution Width 12.4 % (11.0-16.0); White Blood Count 9.8 X10*3/uL (4.8-10.8)
[2022-01-28] MEDS: Lactated Ringers 1,000 ML 100 ML IVCONT (12:30)
--- NOTE | 2022-01-28 13:14 | P.CONAN_ITS ---
HPI - Anesthesia Eval Consult details Narrative: 86 M for inguinal hernia repair [facility] Active Problems Active Problems: All Active Problems (Updated 01/28/22 @ 12:01 by Dulce Belcher RN) Symptomatic bradycardia (Acute) Palpitation (Acute) TMJ (sprain of temporomandibular joint) (Acute) Incarcerated left inguinal hernia (Acute) Anticoagulated (Acute) Enlarged thoracic aorta (Acute) Paroxysmal atrial fibrillation (Acute) Past Medical History Medical History Enlarged thoracic aorta Osteopenia Paroxysmal atrial fibrillation Family History Family History Father Throat cancer Mother Parkinson disease Family history of problems with anesthesia: No Surgical History Surgical History Hx of appendectomy Hx of basal cell carcinoma excision Hx of cataract surgery Hx of colonoscopy Hx of hernia repair Hx of prostate biopsy History of Problems with Anesthesia: No Social History Social History Alcohol intake: never Patient Tobacco Use Status: Former Tobacco user Quit Date: 40 yrs ago Use of substances other than those prescribed or required for medical reasons: No Are you DNR?: No Advance Directives: No Advance Directives Information Provided: Yes service: Yes Current occupational status: retired Meds Allergies Allergy/AdvReac Type Severity Reaction Status Date / Time novacain Allergy Unknown syncope Uncoded 01/28/22 11:48 Active Medications: Current Medications Lactated Ringer's (Lr) 1,000 mls @ 100 mls/hr IVCONT .Q10H MARILY Last Admin: 01/28/22 12:30 Dose: 100 mls/hr Documented by: Home Medications Medication Instructions Recorded Confirmed Last Taken Type alendronate 70 mg tablet 70 mg PO QWEEK 08/21/20 01/27/22 05/22/21 History calcium carbonate 600 mg calcium 600 mg PO BID 05/23/21 01/27/22 05/22/21 Hi story (1,500 mg) tablet (Calcium) multivitamin 1 tab PO DAILY 05/23/21 01/27/22 05/22/21 History desoximetasone 0.25 % topical cream appl TOPICAL BID 01/27/22 01/27/22 Unknown History metoprolol succinate 25 mg 25 mg PO DAILY 01/27/22 01/27/22 01/28/22 08:00 History tablet,extended release 24 hr metronidazole 0.75 % topical cream appl TOPICAL BID PRN 01/27/22 01/27/22 Unknown History Exam Exam Date and Time: January 28, 2022 1314 Height,Weight and Vital Signs: Height 5 ft 10 in Weight 65.317 kg Last Vital Signs Temp 98.5 F 01/28/22 11:49 Pulse 51 01/28/22 11:49 Resp 16 01/28/22 11:49 BP 127/61 01/28/22 11:49 Pulse Ox 95 01/28/22 11:49 Pertinent Lab Results Pertinent Lab Results: Laboratory Tests 01/28/22 11:56 WBC 9.8 RBC 4.15 L Hgb 12.0 L Hct 37.7 L MCV 90.8 MCH 28.9 MCHC 31.8 RDW 12.4 Plt Count 222 MPV 10.3 Absolute Nucleated RBC 0.000 Nucleated RBC % (auto) 0.0 Airway Mallampati Class: III TM Dist: >3cm Neck ROM: Full Loose/Missing/Broken Teeth: Yes Heart: S1, S2 Lungs: b/l breath sounds Assessment and Plan Assessment Anesthesia Assessment: Anesthesia Plan Discussed and Chart Reviewed Final Anesthetic Review Family History of Problems with Anesthesia: No History of Problems with Anesthesia: No NPO: Yes ASA Class: III (Urgent ) Final Preanesthetic Review: Meds/Allgs Chart Reviewed, Consent Obtained/Reviewed and Anes Risks/Benef Reviewed Patient Risk: High Procedure Risk: Intermediate Anesthetic Plan Anesthetic Plan: GA (backup ) and MAC: Disposition: Standard PACU
--- NOTE | 2022-01-28 16:39 | PM.PROC ---
Brief Operative Note Date of procedure: 01/28/22 Pre-op diagnosis: Incarcerated LEFT INGUINAL HERNIA ( indirect) Post-op diagnosis: same Procedure: open left inguinal hernia repair with mesh ( polypropylene) Anesthesia: GLMA Surgeon: King Calix Slab Installer: George Herrera Estimated blood loss (mL): 10 Pathology: other (sac & necrotic contents) Condition: stable Disposition: PACU
--- NOTE | 2022-01-28 16:40 | PM.EVENT ---
Event Note Date of Service: 01/28/22 Event Note: operative report preop diagnosis: Incarcerated left inguinal hernia postop diagnosis: Same ( indirect) procedure: Open left inguinal hernia repair with polypropylene mesh surgeon: King Calix MD Assist: Lennie Herrera PA-C Anersth: mac converted to LMA estimated blood loss: 10 cc specimen: Hernia sac with necrotic fat intraoperative findings: Necrotic fat contained in an indirect inguinal hernia Local: Xylocaine, 1% & bupivicaine 0.25% indications: The patient is an 86-year-old gentleman on Xarelto because of atrial fibrillation who developed an incarcerated left inguinal hernia last Wednesday. He had stopped his Xarelto on Wednesday at the advice of his PCP. He was seen in the office and since he had no symptoms of obstruction, consented for surgery today. I reviewed the inherent risks of bleeding, infection, hernia recurrence, mesh complications as well as the inherent risks related to his recognized and unrecognized comorbidities. The patient seemed understand his options and wanted to proceed. Procedure: The patient was identified by myself in the preoperative holding area and I personal marked his left and will hernia area. He was identified again in the operating room and an appropriate time-out performed. He was placed supine on the table and MAC administered. he was widely prepped and draped in the usual manner for surgery. An ilioinguinal nerve block was performed. After ensuring good analgesia, standard left inguinal hernia incision was made and hemostasis was obtained with cautery and ties. The external oblique was opened sharply through her direction of its fibers through the external ring and given the incarcerated hernia, conversion to LMA was performed for patient comfort reasons. The cord was mobilized at the level of the pubic tubercle and the hernia sac opened. The sac was extremely friable given the necrotic fat. The cord structures were preserved and the fatty tissue and sac excised. Suture ligation of the base of the hernia sac was performed. Next, a Phyllis tension-free hernia repair using polypropylene mesh was performed with good closure of the hernia defect in a new internal ring was fabricated using 2-0 Prolene sutures. After inspecting the operative field for hemostasis, layered closure the incision was performed using 0 Polysorb on the external oblique, 3-0 Polysorb on the subcutaneous tissues and 4-0 Monocryl on the skin. The area was washed and dried, Mastisol and Steri-Strips applied followed by dressings. Patient tolerated procedure well was sent to the recovery in stable condition. All sponge instrument counts were correct. That the patient's request, I called his in apprised her of the operation. Her questions were answered.
== END 2022-01-28 18:30 | disposition home or self-care (01) ==
PROVIDERS: Nurse Practitioner; PCP Internal Medicine; Visit Provider Surgery
PROC: (CPT 49507; principal; 2022-01-28 13:00)
DX: K40.30 Unilateral inguinal hernia, with obstruction, without gangrene, not specified as recurrent (principal); I48.0 Paroxysmal atrial fibrillation; R05.3 Chronic cough; I77.810 Thoracic aortic ectasia; R00.2 Palpitations; I10 Essential (primary) hypertension; M26.609 Unspecified temporomandibular joint disorder, unspecified side; Z79.01 Long term (current) use of anticoagulants; Z79.899 Other long term (current) drug therapy; Z88.8 Allergy status to other drugs, medicaments and biological substances; Z87.891 Personal history of nicotine dependence
CPT/HCPCS: 49507; 36415; 71250; 85027; 88302; C1781; J0131; J0690; J1100; J2405; J3010

== ENCOUNTER → 2022-02-03 08:54 | Outpatient (BNVA) | payer MEDICARE, SELFPAY | PROVIDERS: PCP Internal Medicine; Visit Provider Surgery | DX: Z79.01 Long term (current) use of anticoagulants (principal); Z87.19 Personal history of other diseases of the digestive system; Z98.890 Other specified postprocedural states | CPT/HCPCS: 99211; 99212 ==

== ENCOUNTER → 2022-02-19 09:28 | Outpatient (BNVA) | payer MEDICARE, SELFPAY | PROVIDERS: PCP Internal Medicine; Visit Provider Internal Medicine Cardiovascular Disease | DX: R05.9 Cough, unspecified (principal); I48.0 Paroxysmal atrial fibrillation; I77.89 Other specified disorders of arteries and arterioles | CPT/HCPCS: 93005; 99212 ==

== ENCOUNTER → 2022-02-26 08:41 | Outpatient (BNVA) | payer MEDICARE, SELFPAY | PROVIDERS: PCP Internal Medicine; Visit Provider Internal Medicine | DX: R05.9 Cough, unspecified (principal); J84.9 Interstitial pulmonary disease, unspecified; I48.0 Paroxysmal atrial fibrillation | CPT/HCPCS: 99202 ==

== ENCOUNTER 2022-03-06 09:25 | Outpatient (REF) | payer MEDICARE, SELFPAY ==
--- NOTE | ~2022-03-06 | CT_ITS ---
EXAMINATION: CT CHEST WITHOUT CONTRAST CLINICAL INFORMATION: Abnormal finding of lung field COMPARISON: Previous chest x-ray January 2022 TECHNIQUE: Multidetector volumetric CT imaging of the chest was done. Axial MIP volume rendering provided. Sagittal and coronal reformatted images were obtained. This CT examination was performed using dose optimization techniques as appropriate, variously including the following: *Automated exposure control *Adjustment of mA and/or kV according to patient size (this includes techniques or standardized protocols for targeted exams where dose is matched to indication/reason for exam; i.e. extremities or head) *Use of iterative reconstruction technique DLP: 146 mGy-cm FINDINGS: LUNGS: There is slight interval increase in peripheral infiltrates in the left upper lobe. Otherwise, there is interval decrease in density in the peripheral infiltrates, greatest in the bilateral lower lobes. Infiltrates appear more groundglass attenuation compared to more solid on January 2022 exam. Increased peripheral interstitial markings is still seen in these areas as well. No bronchiectasis or endobronchial or endotracheal lesion is seen MEDIASTINUM: The ascending thoracic aorta is slightly dilated measuring 4.3 cm. Normal heart size. Coronary artery and aortic valve calcified. No pericardial effusion. Small mediastinal lymph nodes. These may be slightly decreased in size from January 2022 exam. PLEURA: There is no pleural effusion. No pleural mass or thickening. AXILLA: No lymphadenopathy. UPPER ABDOMEN: Unremarkable. OSSEOUS STRUCTURES: Degenerative changes of the spine. CT/CT chest wo con IMPRESSION: Slight interval increase in size and number of peripheral infiltrates in the left upper lobe. Peripheral infiltrates otherwise appear decreased in density compared to January 2022 exam. Fleischner guidelines were followed.
== END 2022-03-06 09:26 | disposition home or self-care (01) ==
LOC: HO.CT 09:25
PROVIDERS: Visit Provider Internal Medicine
DX: R91.8 Other nonspecific abnormal finding of lung field (principal)
CPT/HCPCS: 71250

== ENCOUNTER → 2022-03-19 09:21 | Outpatient (BNVA) | payer MEDICARE, SELFPAY | PROVIDERS: PCP Internal Medicine; Visit Provider Internal Medicine | DX: J84.9 Interstitial pulmonary disease, unspecified (principal); Z79.52 Long term (current) use of systemic steroids | CPT/HCPCS: 99212 ==

== ENCOUNTER → 2022-04-08 14:00 | Outpatient (BNVA) | payer MEDICARE, SELFPAY | PROVIDERS: PCP Internal Medicine; Visit Provider Internal Medicine Cardiovascular Disease | DX: I48.0 Paroxysmal atrial fibrillation (principal); Z79.01 Long term (current) use of anticoagulants; Z79.899 Other long term (current) drug therapy | CPT/HCPCS: 93005; 99212 ==

== ENCOUNTER → 2022-05-19 09:54 | Outpatient (BNVA) | payer MEDICARE, SELFPAY | PROVIDERS: PCP Internal Medicine; Visit Provider Internal Medicine | DX: J84.9 Interstitial pulmonary disease, unspecified (principal); R05.9 Cough, unspecified | CPT/HCPCS: 99212 ==

== ENCOUNTER → 2022-07-14 09:57 | Outpatient (BNVA) | payer MEDICARE, SELFPAY | PROVIDERS: PCP Internal Medicine; Visit Provider Internal Medicine Cardiovascular Disease | DX: I48.0 Paroxysmal atrial fibrillation (principal); I95.9 Hypotension, unspecified | CPT/HCPCS: 99212 ==

== ENCOUNTER 2022-07-31 06:48 | Emergency (ER) | payer MEDICARE, SELFPAY ==
--- NOTE | ~2022-07-31 | XR_ITS ---
EXAMINATION: XR CHEST CLINICAL INFORMATION: Hypotensive COMPARISON: 05/23/2021 TECHNIQUE: Frontal view of the chest was obtained. FINDINGS: Normal symmetric lung volumes. No parenchymal consolidation. No pleural effusion. No pneumothorax. Cardiomediastinal silhouette and pulmonary vascularity are within normal limits. Aorta is atherosclerotic. No acute osseous abnormalities. XR/XR chest 1V IMPRESSION: No acute findings.
[2022-07-31 07:01] VITALS: BP 88/49; BP 95/48; PULSE 84; PULSE 98; RESP 16; TEMP 36.6; O2SAT 97; O2SAT 98; BMI 21.2
--- NOTE | 2022-07-31 07:07 | ECG_ITS ---
Test Reason : AFIB Blood Pressure : / mmHG Vent. Rate : 094 BPM Atrial Rate : 000 BPM P-R Int : 000 ms QRS Dur : 070 ms QT Int : 354 ms P-R-T Axes : 000 005 012 degrees QTc Int : 442 ms Atrial fibrillation Abnormal ECG When compared with ECG of 23-MAY-2021 08:05, Atrial fibrillation has replaced Sinus rhythm Vent. rate has increased BY 44 BPM Referred By: Generic ED Physician Electronically Signed By:ISRAEL DICKERSON MD
[2022-07-31 07:08] VITALS: PULSE 141; O2SAT 96
--- NOTE | 2022-07-31 07:33 | ED.GENADULT ---
HPI - General Adult General Chief complaint: General Medical Stated complaint: hypotensive Time Seen by Provider: 07/31/22 07:12 Source: patient Mode of arrival: EMS Limitations: no limitations History of Present Illness HPI narrative: 87-year-old male who presents emergency department for evaluation of low blood pressure. The patient is followed by our volunteer recruitment coordinator, Dr. Prado who saw the patient in his office on 07/14/2022 for low blood pressure and diagnose the patient with orthostatic hypotension and started midodrine 2.5 mg at breakfast and before lunch. Patient is also on Multaq for atrial fibrillation. Patient states that he has been checking his blood pressure and pulse daily. In reviewing the patient's values his systolic blood pressure ranges from 90 to 118 and his pulse ranges from 57 to 90. Patient states this morning he got up at 03:00 hours to go to the bathroom and urinate. He states that when he got up he felt lightheaded but went back to bed. He got up again at 06:00 hours to urinate and felt lightheaded. He then checked his blood pressure and pulse and his systolic blood pressure was out 62/43 with a pulse of 137. He was concerned about his low blood pressure and high pulse so he called an ambulance and was brought to the emergency department for evaluation. The patient states that over the last week he has developed a mild upper respiratory illness including rhinorrhea, sore throat cough. He denied fever, chills, chest pain, shortness of breath. He states he occasionally has dyspnea on exertion but this is unchanged. He denied nausea, vomiting or diarrhea. The patient states that he has no difficulty exercising and yesterday he did walk 5 miles without any chest pain shortness of breath or dyspnea on exertion. Related Data Home Medications Medication Instructions Recorded Confirmed alendronate 70 mg tablet 70 mg PO QWEEK 08/21/20 07/14/22 calcium carbonate 600 mg calcium 600 mg PO BID 05/23/21 07/14/22 (1,500 mg) tablet (Calcium) multivitamin 1 tab PO DAILY 05/23/21 07/14/22 desoximetasone 0.25 % topical cream appl topical BID 01/27/22 07/14/22 metronidazole 0.75 % topical cream appl topical BID PRN 01/27/22 07/14/22 vitamins A,C,L-umpj-xbhhih 14,320 1 cap PO BID 05/19/22 07/14/22 unit-226 mg-200 unit capsule (PreserVision AREDS) Previous Rx's Medication Instructions Recorded dronedarone 400 mg tablet (Multaq) 400 mg PO BID #60 tabs 07/14/22 midodrine 2.5 mg tablet See Rx Instructions PO BID #60 tabs 07/14/22 midodrine 5 mg tablet 5 mg PO BID 30 days #60 tabs 07/31/22 rivaroxaban 20 mg tablet (Xarelto) 20 mg PO QPM #30 tabs 07/31/22 Allergies Allergy/AdvReac Type Severity Reaction Status Date / Time novacain Allergy Unknown syncope Uncoded 05/19/22 10:46 Review of Systems Review of Systems: Yes all other systems are reviewed and are negative [facility] Past Medical History [facility] Narrative: Past medical history: Orthostatic hypotension, reviewed below. 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 He denies tobacco use. He occasionally drinks alcohol. He denies drug use. Medical History Enlarged thoracic aorta Osteopenia Paroxysmal atrial fibrillation Surgical History Hx of appendectomy Hx of basal cell carcinoma excision Hx of cataract surgery Hx of colonoscopy Hx of hernia repair Hx of prostate biopsy Family History Family History Father Throat cancer Mother Parkinson disease Social History Social History Alcohol intake: never Patient Tobacco Use Status: Former Tobacco user Quit Date: 40 yrs ago Advance Directives: No Advance Directives Information Provided: Yes service: Yes Current occupational status: retired Physical Exam ED Vital Signs: Vital Signs - 24 hr 07/31/22 07:01 07/31/22 07:08 07/31/22 07:51 Temperature 98 F Pulse Rate 84 141 H 84 Respiratory Rate 16 Blood Pressure 95/48 L 104/68 Pulse Oximetry 97 96 Oxygen Delivery Method Room Air Room Air 07/31/22 08:23 Temperature Pulse Rate 78 Respiratory Rate 16 Blood Pressure 113/55 L Pulse Oximetry 97 Oxygen Delivery Method Room Air BMI result Body Mass Index 21.2 Const General: cooperative and no acute distress Orientation/consciousness: oriented to person and oriented to place Limitations: no limitations HENMT Head: Yes normal to inspection, Yes normocephalic and Yes atraumatic Ears: external ears normal General nose exam: Normal external nose present Face and sinus: Yes normal facial exam Mouth: Normal oral and palatal mucosa present Throat: Yes posterior oropharynx normal Eyes General: appearance normal, both eyes and all related structures Pupils: Equal, round and reactive pupils present Neck Neck: Yes normal visual inspection, Yes no lymphadenopathy, Yes trachea midline and Yes supple Chest Chest palpation & inspection: normal inspection of the chest and normal palpation of entire chest wall Resp Effort & Inspection: normal respiratory effort and able to speak in complete sentences Auscultation: clear to auscultation bilaterally Cardio Rate: regular rate Rhythm: abnormal rhythm irregularly irregular Heart sounds: S1 normal heart sound present, S2 normal heart sound present and no murmurs GI Inspection: Yes normal to inspection Palpation (GI): Soft to palpation, nontender and no guarding Auscultation: normal bowel sounds General: Yes no CVA tenderness Back/Spine/Pelvis Back: no CVA tenderness Skin General skin exam: no rashes or lesions noted Neuro General: oriented to person and oriented to place Cranial nerves: Yes CN's II-XII intact bilaterally and Yes Equal, round and reactive pupils present Cognition (Neuro): normal cognition Motor exam (neuro): 5/5 motor strength present throughout Extrem General: Yes normal to inspection Psych Appearance: grossly normal Speech and movement: Normal speech and movement present Affect: normal affect Attitude: cooperative Thought process: Normal thought process present Thought content: Normal thought content present Course Course Course Narrative: 87-year-old male with a history of orthostatic hypotension being treated by our volunteer recruitment coordinator, Dr. Prado, recently started on midodrine 2.5 mg in the morning and before lunch time who presents emergency department with 2 episodes of lightheadedness this morning when he got up to micturate. The symptoms occurred prior to make duration. At 06:00 hours when he felt lightheaded he checked his blood pressure which was low at 60 2/43 any had an elevated pulse of 137. These values were unusual for him therefore he called an ambulance and was brought to the emergency department for evaluation. At the time of evaluation patient's blood pressure was 95/48 which is similar to his baseline values but he did have an elevated heart rate of 141. Physical examination did reveal an irregular irregular heart rate otherwise was unremarkable. Patient's rn cardiac revealed that he is in atrial fibrillation. Laboratory evaluation was ordered. Will check an EKG. We will also check orthostatic vital signs on the patient. Patient was ordered to get normal saline IV x5 100 cc and then will repeat his orthostatics. The patient's laboratory evaluation was unremarkable except for a high sensitive troponin I which was elevated 36.7. Repeat 3 hour troponin I was 43.2 with a delta of less than 50% which is reassuring. Patient is feeling better after the above treatment. Patient will be discharged home advised to follow-up with his volunteer recruitment coordinator. The patient was given a refill of his prescription of midodrine 5 mg twice a day. Medications Administered Discontinued Medications Generic Name Dose Route Start Last Admin Trade Name Freq PRN Reason Stop Dose Admin Sodium Chloride 1,000 mls @ 500 mls/hr 07/31/22 07:30 07/31/22 09:46 Ns IV 07/31/22 09:29 Infused .Q2H STA Infusion Medical Decision Making Lab Data Result diagrams: 07/31/22 07:13 07/31/22 07:13 Labs: Lab Results 07/31/22 07/31/22 07/31/22 Range/Units 07:13 07:13 07:13 WBC 6.9 (4.8-10.8) X10*3/uL RBC 4.17 L (4.60-5.80) X10*6/uL Hgb 12.6 L (14.0-18.0) g/dl Hct 37.8 L (42.0-52.0) % MCV 90.6 (80.0-98.0) fL MCH 30.2 (27.0-33.0) pg MCHC 33.3 (31.0-36.0) g/dl RDW 12.0 (11.0-16.0) % Plt Count 197 (160-400) X10*3/uL MPV 10.3 (9.4-12.4) fL Absolute Nucleated RBC 0.000 (0.0-0.012) X10*3/uL Nucleated RBC % (auto) 0.0 (0.0-0.2) /100WBC Sodium 136 (135-145) mmol/L Potassium 4.4 (3.3-5.1) mmol/L Chloride 100 (96-108) mmol/L Carbon Dioxide 23 (22-29) mmol/L Anion Gap 17 (12-20) BUN 31 H (9-16) mg/dL Creatinine 1.51 H (0.5-1.4) mg/dL Estim Creat Clear Calc 32.7 Estimated GFR 44 Random Glucose 117 H (60-115) mg/dL Calcium 9.5 (8.4-10.2) mg/dL Total Bilirubin 0.7 (0.0-1.0) mg/dL Direct Bilirubin 0.3 (0.0-0.5) mg/dL AST 21 (5-37) U/L ALT 25 (0-40) U/L Alkaline Phosphatase 47 (39-117) U/L Troponin I High Sens 36.7 H (<3.5-35.0) ng/L B-Natriuretic Peptide (<100) pg/mL Total Protein 6.8 (6.5-8.0) g/dL Albumin 4.0 (3.5-5.0) g/dL 07/31/22 07/31/22 Range/Units 07:13 10:20 WBC (4.8-10.8) X10*3/uL RBC (4.60-5.80) X10*6/uL Hgb (14.0-18.0) g/dl Hct (42.0-52.0) % MCV (80.0-98.0) fL MCH (27.0-33.0) pg MCHC (31.0-36.0) g/dl RDW (11.0-16.0) % Plt Count (160-400) X10*3/uL MPV (9.4-12.4) fL Absolute Nucleated RBC (0.0-0.012) X10*3/uL Nucleated RBC % (auto) (0.0-0.2) /100WBC Sodium (135-145) mmol/L Potassium (3.3-5.1) mmol/L Chloride (96-108) mmol/L Carbon Dioxide (22-29) mmol/L Anion Gap (12-20) BUN (9-16) mg/dL Creatinine (0.5-1.4) mg/dL Estim Creat Clear Calc Estimated GFR Random Glucose (60-115) mg/dL Calcium (8.4-10.2) mg/dL Total Bilirubin (0.0-1.0) mg/dL Direct Bilirubin (0.0-0.5) mg/dL AST (5-37) U/L ALT (0-40) U/L Alkaline Phosphatase (39-117) U/L Troponin I High Sens 43.2 H (<3.5-35.0) ng/L B-Natriuretic Peptide 346 H (<100) pg/mL Total Protein (6.5-8.0) g/dL Albumin (3.5-5.0) g/dL Discharge Plan 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 Continue taking your midodrine as prescribed by your volunteer recruitment coordinator. Try to increase the amount of fluid that you drink when you get up in the middle the night to see if this reduces the symptoms. Continue to track your blood pressure and her pulse as directed by your volunteer recruitment coordinator. Follow-up with your doctor in 2 days. Please return to the emergency department if your symptoms get worse or if you develop any symptoms that are concerning to you. Prescriptions: New midodrine 5 mg tablet 5 mg PO BID 30 Days Qty: 60 0RF Rx Instructions: Take at 07:30am and 11:30am No Action Xarelto 20 mg tablet 20 mg PO QPM Qty: 30 5RF multivitamin Tablet 1 tab PO DAILY calcium carbonate [Calcium 600] 600 mg calcium (1,500 mg) Tablet 600 mg PO BID alendronate 70 mg tablet 70 mg PO QWEEK desoximetasone 0.25 % cream topical BID metronidazole 0.75 % cream topical BID PRN PreserVision AREDS [id number] xbap-en-freh capsule 1 cap PO BID Multaq 400 mg tablet 400 mg PO BID Qty: 60 2RF Rx Instructions: must administer with a meal/food midodrine 2.5 mg tablet See Rx Instructions PO BID Qty: 60 2RF Rx Instructions: Half an hour before breakfast and lunch orally 2 times a day; do not give last dose of day after 6PM or within 4 hrs of bedtime
[2022-07-31 07:39] LABS: Hematocrit 37.8 % (42.0-52.0); Hemoglobin 12.6 g/dl (14.0-18.0); Mean Corpuscular HGB Conc 33.3 g/dl (31.0-36.0); Mean Corpuscular Hemoglobin 30.2 pg (27.0-33.0); Mean Corpuscular Volume 90.6 fL (80.0-98.0); Mean Platelet Volume 10.3 fL (9.4-12.4); Platelet Count 197 X10*3/uL (160-400); Red Blood Count 4.17 X10*6/uL (4.60-5.80); White Blood Count 6.9 X10*3/uL (4.8-10.8)
[2022-07-31] MEDS: 0.9 % Sodium Chloride 1,000 ML 500 ML IV (07:39)
--- OUTSIDE RECORDS SUMMARY | 2022-07-31 07:49 | XMS_ITS | Continuity of Care Document ---
:1935 Author Organization [facility] Adult Address [address] [place] [address]- Care Team Providers Name Role Phone Giancarlo Almendarez MD Primary Care Physician [facility] Date[facility] 02[facility]24/22 - 03/26/22 [facility] [address] [place] [address]- Allergies, Adverse Reactions, Alerts No Known Allergies Immunizations Given and Recorded Vaccine Date Status Refusal Reason SARS-CoV-2 (COVID-19) mRNA-1273 vaccine 12/23/21 Recorded SARS-CoV-2 (COVID-19) mRNA-1273 vaccine 07/12/21 Recorded SARS-CoV-2 (COVID-19) mRNA-1273 vaccine 12/14/20 Recorded SARS-CoV-2 (COVID-19) mRNA-1273 vaccine 11/13/20 Recorded influenza virus vaccine, inactivated 08/04/21 Recorded influenza virus vaccine, inactivated1 06/18/20 Given influenza virus vaccine, inactivated 06/27/18 Recorded influenza virus vaccine, inactivated 06/23/17 Recorded influenza virus vaccine, inactivated 05/13/17 Recorded influenza virus vaccine, inactivated 06/25/16 Recorded Influenza Virus Vaccine (oldterm) 08/16/19 Recorded zoster vaccine, inactivated 08/13/19 Recorded zoster vaccine, inactivated 06/20/19 Recorded zoster vaccine, inactivated 04/11/19 Recorded pneumococcal 13-valent vaccine 10/05/16 Recorded pneumococcal 13-valent vaccine 07/31/16 Recorded pneumococcal 13-valent vaccine 06/28/16 Recorded pneumococcal 13-valent vaccine 04/13/10 Recorded Zostavax (oldterm) 02/22/16 Given tetanus/diphtheria/pertussis, acel(Tdap) 02/11/13 Recorde d Zoster Vaccine Live 09/29/12 Recorded pneumococcal 23-valent vaccine 04/13/10 Recorded 1Result Comment: [id number] Medications alendronate 70 mg oral tablet 1 tablet, By Mouth, Every week, OR MEDICATION OF THE DAY., # 12 tablet, 3 Refills, Maintenance, 03/09/22 13:50:00 EDT, [facility] #[id number], 179, cm, 03/09/22 13:06:00 EDT, Height Start Date: 03/09/22 Stop Date: 02/08/23 Status: Orderedclotrimazole 1% topical cream 1 application, Topically, 2 times a day, # 12 Gm, 0 Refills, Maintenance, 01/17/20 11:08:00 EDT, Cream Start Date: 01/17/20 Status: Ordereddesoximetasone 0.25% topical cream 1 application, Topically, 2 times a day, # 15 Gm, 0 Refills, Maintenance, 01/17/20 11:08:00 EDT, Cream Start Date: 01/17/20 Status: OrderedFlonase 50 mcg/inh nasal spray 2 sprays, Nares, Both, Daily in AM, 0 Refills, Maintenance, 01/26/22 10:31:00 EDT, [place], Partial fill upon patient request if the prescription is for a schedule II opioid drug. Start Date: 01/26/22 Status: OrderedmetroNIDAZOLE 0.75% topical cream 1 application, Topically, 2 times a day, # 45 Gm, 0 Refills, Maintenance, 09/23/17 11:29:03, Cream Start Date: 09/23/17 Status: OrderedPredniSONE By Mouth, Daily, 0 Refills, Maintenance, 03/09/22 13:11:00 EDT, Partial fill upon patient request ifthe prescription is for a schedule II opioid drug. Start Date: 03/09/22 Status: OrderedPreserVision AREDS 2 1 capsule, By Mouth, Daily, 0 Refills, Maintenance, 09/23/17 11:30:28 Start Date: 09/23/17 Status: OrderedToprol XL 25 mg oral tablet, extended release 12.5 mg, 0.5, tablet, By Mouth, Daily, # 15 tablet, Refills 11, Tot. Refills 11, Maintenance, 03/13/22 16:50:00 EDT, Do Not Route, Partial fill upon patient request if the prescription is for a schedule II opioid drug. Start Date: 03/13/22 Stop Date: 03/08/23 Status: OrderedXarelto 20 mg oral tablet 1 tablet = 20 mg, By Mouth, Daily in PM, # 30 tablet, 0 Refills, Maintenance, 09/23/17 11:27:58, Tablet Start Date: 09/23/17 Status: Ordered Problem List Condition Effective Dates Status Health Status Informant Adenomatous polyp of colon(Confirmed)1 Active Babesiosis(Confirmed) Active Basal cell carcinoma(Confirmed)2, 3 Active Bilateral hearing loss(Confirmed) Active Chronic anemia(Confirmed) Active CKD (chronic kidney disease), stage Active III(Confirmed) Cough(Confirmed) Active Glucose intolerance(Confirmed) Active Dry skin(Confirmed) Active Interstitial lung disease(Confirmed) Active Incarcerated left inguinal Active hernia(Confirmed) Lightheadedness(Confirmed) Active BPH associated with Active nocturia(Confirmed) Osteoporosis(Confirmed)4 Active PAF (paroxysmal atrial Active fibrillation)(Confirmed)5 Elevated PSA(Confirmed) Active Acne rosacea(Confirmed) Active Tinea pedis(Confirmed) Active 1Colonoscopy 2014, no polyp but diverticulosis. No further colonoscopies needed. 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 [id number] with fosamax for [id number] dr. arenas Social History Social History Type Response Smoking Status Former smoker entered on: 11/17/17 Sex
--- OUTSIDE RECORDS SUMMARY | 2022-07-31 07:49 | XMS_ITS | Continuity of Care Document ---
:1935 Author Organization [facility] Adult Address [address] [place] [address]- Care Team Providers Name Role Phone Giancarlo Almendarez MD Primary Care Physician [facility] Date[facility]s): 12/26/21 - 01/02/22 [facility] Adult [address] [place] [address]- Encounter Diagnosis Cough (Discharge Diagnosis) - 12/26/21 Attending Physician: Nishi Delgado Allergies, Adverse Reactions, Alerts No Known Allergies Immunizations Given and Recorded Vaccine Date Status Refusal Reason SARS-CoV-2 (COVID-19) mRNA-1273 vaccine 12/14/20 Recorded SARS-CoV-2 (COVID-19) mRNA-1273 vaccine 11/13/20 Recorded influenza virus vaccine, inactivated1 06/18/20 Given [...] pneumococcal 23-valent vaccine 04/13/10 Recorded 1Result Comment: [id number] Medications alendronate 70 mg oral tablet 1 tablet, By Mouth, Every week, OR MEDICATION OF THE DAY., # 12 tablet, 1 Refills, Maintenance, 09/12/21 12:49:00 EST, [facility] #[id number], 179, cm, 06/05/21 7:24:00 EDT, Height Start Date: 09/12/21 Status: Orderedamiodarone 200 mg oral tablet 100 mg, 0.5, tablet, By Mouth, Daily, # 180 tablet, Refills 0, Maintenance, 09/15/19 15:07:00 EST Start Date: 09/15/19 Status: OrderedAzithromycin 5 Day Dose Pack 250 mg oral tablet 1 pack/packet, By Mouth, Once, # 6 tablet, 0 Refills, Soft Stop, 12/26/21 10:28:00 EDT, Tablet, [facility] #[id number], Partial fill upon patient request if the prescription is for a schedule II opioid drug., 179, cm, 12/26/21 10:14:00 EDT, Height Start Date: 12/26/21 Status: Orderedclotrimazole 1% topical cream 1 application, Topically, 2 times a day, # 12 Gm, 0 Refills, Maintenance, 01/17/20 11:08:00 EDT, Cream Start Date: 01/17/20 Status: Ordereddesoximetasone 0.25% topical cream 1 application, Topically, 2 times a day, # 15 Gm, 0 Refills, Maintenance, 01/17/20 11:08:00 EDT, Cream Start Date: 01/17/20 Status: OrderedmetroNIDAZOLE 0.75% topical cream 1 application, Topically, 2 times a day, # 45 Gm, 0 Refills, Maintenance, 09/23/17 11:29:03, Cream Start Date: 09/23/17 Status: OrderedPreserVision AREDS 2 1 capsule, By Mouth, Daily, 0 Refills, Maintenance, 09/23/17 11:30:28 Start Date: 09/23/17 Status: OrderedXarelto 20 mg oral tablet 1 [...] CKD (chronic kidney disease), stage Active III(Confirmed) Glucose intolerance(Confirmed) Active Dry skin(Confirmed) Active Lightheadedness(Confirmed) Active BPH associated with Active nocturia(Confirmed) Osteoporosis(Confirmed)4 Active PAF (paroxysmal atrial Active fibrillation)(Confirmed)5 Elevated PSA(Confirmed) Active Acne rosacea(Confirmed) Active Tinea pedis(Confirmed) Active 1Colonoscopy 2014, no polyp but diverticulosis. No further colonoscopies needed. 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 [id number] with fosamax for [id number] dr. arenas Diagnosis Diagnosis Type Effective Dates Health Status Clinical Serv ice Informant Cough Discharge 12/26/21 Diagnosis Vital Signs Most recent to oldest [Reference Range]: 1 Height 179 cm (12/26/21 10:14 AM) Weight 64.5 kg (12/26/21 10:14 AM) Body Mass Index [18.5-24.99] 20.13 (12/26/21 10:14 AM) Weight Obtained Via Patient/family stated (12/26/21 10:14 AM) Social History Social History Type Response Smoking Status Former smoker entered on: 11/17/17 Sex
--- OUTSIDE RECORDS SUMMARY | 2022-07-31 07:49 | XMS_ITS | Continuity of Care Document ---
:[address] [facility] Adult Address [address] [place] [address]- Care Team Providers Name Role Phone Giancarlo Almendarez MD Primary Care Physician Encounter [facility] Date(s): 02/04/22 - 02/11/22 [facility] [address] [place] [address]- Encounter Diagnosis PAF (paroxysmal atrial fibrillation) (Discharge Diagnosis) - 02/04/22 Incarcerated left inguinal hernia (Discharge Diagnosis) - 02/04/22 Attending Physician: Giancarlo Almendarez MD Allergies, Adverse Reactions, Alerts No Known Allergies [...] pneumococcal 23-valent vaccine 04/13/10 Recorded 1Result Comment: [id number] Medications alendronate 70 mg oral tablet 1 tablet, By Mouth, Every week, OR MEDICATION OF THE DAY., # 12 tablet, 1 Refills, Maintenance, 09/12/21 12:49:00 EST, [facility][id number], 179, cm, 06/05/21 7:24:00 EDT, Height Start Date: 09/12/21 Status: Orderedclotrimazole 1% topical cream 1 application, [...] AM, 0 Refills, Maintenance, 01/26/22 10:31:00 EDT, [place], Partial fill upon patient request if the [...] tablet, Refills 11, Tot. Refills 11, Maintenance, 01/19/22 9:33:00 EDT, Route to Pharmacy Electronically, [facility] #[id number], Partial fill upon patient request if the prescription is for a schedule... Start Date: 01/19/22 Stop Date: 01/14/23 Status: OrderedXarelto 20 mg oral tablet 1 [...] Active Glucose intolerance(Confirmed) Active Dry skin(Confirmed) Active Incarcerated left inguinal Active hernia(Confirmed) Lightheadedness(Confirmed) Active BPH associated with Active nocturia(Confirmed) Osteoporosis(Confirmed)4 Active PAF (paroxysmal atrial Active fibrillation)(Confirmed)5 Elevated PSA(Confirmed) Active Acne rosacea(Confirmed) Active Tinea pedis(Confirmed) Active 1Colonoscopy 2014, no polyp but diverticulosis. No further colonoscopies needed. 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 LawsonLlysuv1islzaru with fosamax for cbtzj0cqhkoyjabecs dr. arenas Diagnosis Diagnosis Type Effective Dates Health Clinical Infor mant Status Service PAF (paroxysmal Discharge 02/04/22 atrial Diagnosis fibrillation) Incarcerated left Discharge 02/04/22 inguinal hernia Diagnosis Vital Signs Most recent to oldest [Reference Range]: 1 Height 179 cm (02/04/22 1:27 PM) Weight 65.6 kg (02/04/22 1:27 PM) Oxygen Saturation [94-100 %] 97 % (02/04/22 1:27 PM) Pulse Rate [55-90 bpm] 62 bpm (02/04/22 1:27 PM) Body Mass Index [18.5-24.99] 20.47 (02/04/22 1:27 PM) Blood Pressure [90-138/55-84 mm Hg] 110/52 mm Hg (02/04/22 1:27 PM) Mode of Delivery (Oxygen) Room air (02/04/22 1:27 PM) Blood pressure sites Arm, left (02/04/22 1:27 PM) Weight Obtained Via Standing scale (02/04/22 1:27 PM) Social History Social History Type Response Smoking Status Former smoker entered on: 11/17/17 Sex
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
--- OUTSIDE RECORDS SUMMARY | 2022-07-31 07:49 | XMS_ITS | Continuity of Care Document ---
:1935 Author Organization [facility] Adult Address [address] [place] [address]- Care Team Providers Name Role Phone Giancarlo Almendarez MD Primary Care Physician [facility] Date[facility]s): 03/18/20 - 04/17/20 [facility] [address] [place] [address]- [facility] Allergies, Adverse Reactions, Alerts Substance Reaction [...] further colonoscopies needed. 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 LawsonIbbllu4vrastim with fosamax for [id number] dr. arenas Social History Social History Type Response Smoking Status Former smoker entered on: 11/17/17 Sex
--- OUTSIDE RECORDS SUMMARY | 2022-07-31 07:49 | XMS_ITS | Continuity of Care Document ---
:1935 Author Organization [facility] Adult Address [address] [place] [address]- Care Team Providers Name Role Phone Giancarlo Almendarez MD Primary Care Physician [facility] Date(s): 01/22/22 - 02/21/22 [facility] [address] [place] [address]- Allergies, Adverse Reactions, Alerts No Known Allergies [...] pneumococcal 23-valent vaccine 04/13/10 Recorded 1Result Comment: [id number] Medications alendronate 70 mg oral tablet 1 tablet, By Mouth, Every week, OR MEDICATION OF THE DAY., # 12 tablet, 1 Refills, Maintenance, 09/12/21 12:49:00 EST, [facility] #[id number], 179, cm, 06/05/21 7:24:00 EDT, Height Start [...] AM, 0 Refills, Maintenance, 01/26/22 10:31:00 EDT, [place], Partial fill upon patient request if the [...] 01/19/22 9:33:00 EDT, Route to Pharmacy Electronically, [facility] #[id number], Partial fill upon patient request if the prescription is for a schedule... Start Date: 01/19/22 Stop Date: 5/4/23 Status: OrderedXarelto 20 mg oral tablet 1 [...] further colonoscopies needed. 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 LawsonJsriff6grmijhb with fosamax for odeix4quklrzuwcpey dr. arenas Social History Social History Type Response Smoking Status Former smoker entered on: 11/17/17 Sex
--- OUTSIDE RECORDS SUMMARY | 2022-07-31 07:49 | XMS_ITS | Continuity of Care Document ---
:1935 Author Organization [facility] Adult Address [address] [place] [address]- Care Team Providers Name Role Phone Giancarlo Almendarez MD Primary Care Physician [facility] Date(s): 01/23/21 - 01/30/21 [facility] [address] [place] [address]- Attending Physician: Giancarlo Almendarez MD Allergies, Adverse Reactions, Alerts Substance Reaction Severity [...] pneumococcal 23-valent vaccine 04/13/10 Recorded 1Result Comment: [id number] Medications amiodarone 200 mg oral tablet 200 mg, 1, tablet, By Mouth, Daily, # 180 tablet, Refills 0, Maintenance, 09/15/19 15:07:00 EST Start Date: 09/15/19 Status: Orderedclotrimazole 1% topical cream 1 application, Topically, 2 times a day, # 12 Gm, 0 Refills, Maintenance, 01/17/20 11:08:00 EDT, Cream Start Date: 01/17/20 Status: Ordereddesoximetasone 0.25% topical cream 1 application, Topically, 2 times a day, # 15 Gm, 0 Refills, Maintenance, 01/17/20 11:08:00 EDT, Cream Start Date: 01/17/20 Status: OrderedFosamax 70 mg oral tablet 1 tablet = 70 mg, By Mouth, Every week, with 6-8 oz plain water, at least 30 minutes before first food, beverage, or medication of the day, # 12 tablet, 11 Refills, Maintenance, 07/23/20 14:43:00 EST, Tablet, [facility] #[id number], 179, cm, 07/14... Start Date: 07/23/20 Status: OrderedmetroNIDAZOLE 0.75% topical cream 1 application, [...] III(Confirmed) Glucose intolerance(Confirmed) Active Dry skin(Confirmed) Active BPH associated with Active nocturia(Confirmed) Osteoporosis(Confirmed)4 Active PAF (paroxysmal atrial Active fibrillation)(Confirmed)5 Elevated PSA(Confirmed) Active Acne rosacea(Confirmed) Active Tinea pedis(Confirmed) Active 1Colonoscopy 2014, no polyp but diverticulosis. No further colonoscopies needed. 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 LawsonQsrnxo0asygbna with fosamax for fgaeb3tdbyvzobtikm dr. arenas Vital Signs Most recent to oldest [Reference Range]: 1 Height 179 cm (01/23/21 7:25 AM) Social History Social History Type Response Smoking Status Former smoker entered on: 11/17/17 Sex
--- OUTSIDE RECORDS SUMMARY | 2022-07-31 07:49 | XMS_ITS | Continuity of Care Document ---
:1935 Author Organization [facility] Address [address], [facility] [address] [place] [address]- Care Team Providers Name Role Phone Giancarlo Almendarez MD Primary Care Physician Encounter [facility] Date(s): 10/12/19 - 10/19/19 [facility] [address] [facility] [address] [place], [place] [address] Attending Physician: Melany NÚÑEZ, [place] Referring Physician: Giancarlo Almendarez MD Allergies, Adverse Reactions, Alerts Substance Reaction Severity Status NKA Active Immunizations Given and Recorded Vaccine Date Status Refusal Reason Influenza Virus Vaccine (oldterm) 08/16/19 Recorded zoster vaccine, inactivated 04/11/19 Recorded influenza [...] 09/15/19 15:07:00 EST Start Date: 09/15/19 Status: OrderedBetamethasone Valerate 0.1% Cream Topically, 2 times a day, 0 Refills, Maintenance, 09/23/17 11:29:13 Start Date: 09/23/17 Status: Orderedcalcium carbonate 600 mg oral tablet 1 tablet = 600 mg, By Mouth, 2 times a day, # 60 tablet, 0 Refills, Maintenance, 09/23/17 11:30:12, Tablet Start Date: 09/23/17 Status: Orderedclotrimazole 1% topical cream 1 application, Topically, 2 times a day, # 12 Gm, 0 Refills, Maintenance, 09/23/17 11:29:24, Cream Start Date: 09/23/17 Status: OrderedFlonase 50 mcg/inh nasal spray 1 sprays, Nares, Both, 2 times a day, in each nostril, # 16 Gm, 1 Refills, Maintenance, 09/18/19 9:44:00 EST, [place] #[id number], 1 sprays Nares, Both 2 times a day,Instr:in each nostril, 179, cm, 09/15/19 14:47:00 EST, Height Start Date: 09/18/19 Status: Orderedmeclizine 12.5 mg oral tablet 1 [...] 09/23/17 11:27:58, Tablet Start Date: 09/23/17 Status: OrderedZithromax Z-Diaz 250 mg oral tablet 500 mg today, then 250 mg daily, By Mouth, Daily, as directed on package labeling, # 1 packet, 0 Refills, Maintenance, 10/12/19 13:24:00 EST, [email or web address] #[id number], 179, cm, 10/12/19 13:02:00 EST, Height Start Date: 10/12/19 Status: Ordered Problem List Condition Effective Dates Status Health Status Informant Adenomatous polyp of colon(Confirmed)1 Active Babesiosis(Confirmed) Active Basal cell carcinoma(Confirmed)2, 3 Active Bilateral hearing loss(Confirmed) Active Chronic anemia(Confirmed) Active Dry skin(Confirmed) Active Osteoporosis(Confirmed)4 Active PAF (paroxysmal atrial Active fibrillation)(Confirmed)5 Acne rosacea(Confirmed) Active Tinea pedis(Confirmed) Active 1Colonoscopy 2014, no polyp but diverticulosis. No further colonoscopies needed. 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 LawsonDkknfj0dsisopf with fosamax for talom4xijhmrafmicr dr. arenas Vital Signs Most recent to oldest [Reference Range]: 1 Height 179 cm (10/12/19 1:02 PM) Weight 72.6 kg (10/12/19 1:02 PM) Oxygen Saturation [94-100 %] 98 % (10/12/19 1:02 PM) Pulse Rate [55-90 bpm] 84 bpm (10/12/19 1:02 PM) Body Mass Index [18.5-24.99] 22.66 (10/12/19 1:02 PM) Blood Pressure [90-138/55-84 mm Hg] 126/70 mm Hg (10/12/19 1:02 PM) Respiratory Rate [16-30 br/min] 16 br/min (10/12/19 1:02 PM) Temperature [96.8-100.4 DegF] 98.0 DegF (10/12/19 1:02 PM) Mode of Delivery (Oxygen) Room air (10/12/19 1:02 PM) Blood pressure sites Arm, left (10/12/19 1:02 PM) Temperature Route Temporal (10/12/19 1:02 PM) Weight Obtained Via Standing scale (10/12/19 1:02 PM) Social History Social History Type Response Smoking Status Former smoker entered on: 11/17/17 Sex
--- OUTSIDE RECORDS SUMMARY | 2022-07-31 07:49 | XMS_ITS | Continuity of Care Document ---
:1935 Author Organization [facility] Adult Address [address] [place] [address]- Care Team Providers Name Role Phone Giancarlo Almendarez MD Primary Care Physician [facility] Date(s): 03/17/22 - 04/16/22 [facility] [address] [place] [address]- Allergies, Adverse Reactions, Alerts No Known Allergies [...] pneumococcal 23-valent vaccine 04/13/10 Recorded 1Result Comment: [id number] Medications alendronate 70 mg oral tablet 1 tablet, By Mouth, Every week, OR MEDICATION OF THE DAY., # 12 tablet, 3 Refills, Maintenance, 03/09/22 13:50:00 EDT, [facility] #[id number], 179, cm, 03/09/22 13:06:00 EDT, Height Start [...] AM, 0 Refills, Maintenance, 01/26/22 10:31:00 EDT, [place], Partial fill upon patient request if the [...] XL 25 mg oral tablet, extended release 25 mg, 1, tablet, By Mouth, Daily, # 30 tablet, Refills 11, Tot. Refills 11, Maintenance, 03/13/22 16:50:00 EDT, Do Not Route, Partial fill upon patient request if the prescription is for a schedule IIopioid drug. Start Date: 03/13/22 Stop Date: 03/08/23 [...] further colonoscopies needed. 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 [id number] with fosamax for [id number] dr. arenas Social History Social History Type Response Smoking Status Former smoker entered on: 11/17/17 Sex
--- OUTSIDE RECORDS SUMMARY | 2022-07-31 07:49 | XMS_ITS | Continuity of Care Document ---
:1935 Author Organization [facility] Adult Address [address] [place] [address]- Care Team Providers Name Role Phone Giancarlo Almendarez MD Primary Care Physician [facility] Date[facility]): 10[facility]/19 - 11/18/19 [facility] Adult [address] [place] [address]- [facility] Attending Physician: Soheila Saez NP Allergies, Adverse Reactions, Alerts Substance Reaction Severity Status NKA Active Immunizations Given and Recorded Vaccine Date Status Refusal Reason Influenza Virus Vaccine (oldterm) 08/16/19 Recorded zoster vaccine, inactivated 04/11/19 Recorded influenza virus vaccine, inactivated 06/27/18 Recorded influenza virus vaccine, inactivated 06/23/17 Recorded Zostavax (oldterm) 02/22/16 Given tetanus/diphtheria/pertussis, acel(Tdap) 02/11/13 Recorde d pneumococcal 13-valent vaccine 04/13/10 Recorded pneumococcal 23-valent vaccine 04/13/10 Recorded Medications albuterol CFC free 90 mcg/inh inhalation aerosol 2, puffs, Inhalation, 4 times a day, PRN, # 54 Gm, Refills 0, Tot. Refills 0, Maintenance, 10/20/19 11:33:00 EST, Route to Pharmacy Electronically, [id number], [facility] #[id number], 179, cm, 10/20/19 10:11:00 EST, Height Start Date: 10/20/19 Status: Orderedamiodarone 200 mg oral tablet 200 mg, 1, [...] 09/23/17 11:29:24, Cream Start Date: 09/23/17 Status: Orderedmeclizine 12.5 mg oral tablet 1 [...] further colonoscopies needed. 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 LawsonHbswiq2fkstklc with fosamax for datzs4akkihnjcvrfr dr. arenas Social History Social History Type Response Smoking Status Former smoker entered on: 11/17/17 Sex
--- OUTSIDE RECORDS SUMMARY | 2022-07-31 07:49 | XMS_ITS | Continuity of Care Document ---
:1935 Author Organization [facility] Adult Address [address] [place] [address]- Care Team Providers Name Role Phone Giancarlo Almendarez MD Primary Care Physician [facility] Date(s): 02/26/22 - 03/28/22 [facility] Adult [address] [place] [address]- Allergies, Adverse Reactions, Alerts No Known Allergies [...] pneumococcal 23-valent vaccine 04/13/10 Recorded 1Result Comment: [id number] Medications alendronate 70 mg oral tablet 1 tablet, By Mouth, Every week, OR MEDICATION OF THE DAY., # 12 tablet, 3 Refills, Maintenance, 03/09/22 13:50:00 EDT, [facility] #[id number], 179, cm, 03/09/22 13:06:00 EDT, Height Start [...] AM, 0 Refills, Maintenance, 01/26/22 10:31:00 EDT, [place], Partial fill upon patient request if the [...] further colonoscopies needed. 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 LawsonFsjzya9nxpfscs with fosamax for ircah5ouijboyjjbyj dr. arenas Social History Social History Type Response Smoking Status Former smoker entered on: 11/17/17 Sex
--- OUTSIDE RECORDS SUMMARY | 2022-07-31 07:49 | XMS_ITS | Continuity of Care Document ---
:1935 Author Organization [facility] Adult Address [address] [place] [address]- Care Team Providers Name Role Phone Giancarlo Almendarez MD Primary Care Physician [facility] Date(s): 07/31/20 - 08/30/20 [facility] Adult [address] [place] [address]- Attending Physician: Admtr, Greer Admitting Physician: AdmtrGreer Referring Physician: Admtr, Ar8 Allergies, Adverse Reactions, Alerts Substance Reaction Severity Status NKA Active Immunizations Given and Recorded Vaccine Date Status Refusal Reason influenza virus vaccine, inactivated1 06/18/20 Given influenza virus vaccine, inactivated 06/27/18 Recorded influenza virus vaccine, inactivated 06/23/17 Recorded Influenza Virus Vaccine (oldterm) 08/16/19 Recorded zoster vaccine, inactivated 08/13/19 Recorded zoster vaccine, inactivated 04/11/19 Recorded Zostavax (oldterm) 02/22/16 Given tetanus/diphtheria/pertussis, acel(Tdap) 02/11/13 Recorde d pneumococcal 13-valent vaccine 04/13/10 Recorded pneumococcal 23-valent vaccine 04/13/10 Recorded 1Result Comment: [id number] Medications amiodarone 200 mg oral tablet 200 [...] 11 Refills, Maintenance, 07/23/20 14:43:00 EST, Tablet, [facility] #[id number], 179, cm, 07/14... Start Date: 07/23/20 Status: Orderedmeclizine 12.5 mg oral tablet 1 [...] further colonoscopies needed. 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 LawsonXbzkgn6sejtqji with fosamax for tjsxp7cbqkmgzewcva dr. arenas Social History Social History Type Response Smoking Status Former smoker entered on: 11/17/17 Sex
--- OUTSIDE RECORDS SUMMARY | 2022-07-31 07:49 | XMS_ITS | Continuity of Care Document ---
:1935 Author Organization [facility] Adult Address [address] [place] [address]- Care Team Providers Name Role Phone Giancarlo Almendarez MD Primary Care Physician [facility] Date[facility]s): 06/09/22 - 06/16/22 [facility] Adult [address] [place] [address]- Attending Physician: Giancarlo Almendarez MD Allergies, Adverse Reactions, Alerts No Known Allergies Immunizations Given and Recorded Vaccine Date Status Refusal Reason influenza virus vaccine, inactivated 06/10/22 Given influenza virus vaccine, inactivated 08/04/21 Recorded influenza virus vaccine, inactivated1 06/18/20 Given influenza virus vaccine, inactivated 06/27/18 Recorded influenza virus vaccine, inactivated 06/23/17 Recorded influenza virus vaccine, inactivated 05/13/17 Recorded influenza virus vaccine, inactivated 06/25/16 Recorded SARS-CoV-2 (COVID-19) mRNA-1273 vaccine 12/23/21 Recorded SARS-CoV-2 (COVID-19) mRNA-1273 vaccine 07/12/21 Recorded SARS-CoV-2 (COVID-19) mRNA-1273 vaccine 12/14/20 Recorded SARS-CoV-2 (COVID-19) mRNA-1273 vaccine 11/13/20 Recorded Influenza Virus Vaccine (oldterm) 08/16/19 Recorded zoster vaccine, inactivated 08/13/19 Recorded zoster vaccine, inactivated 06/20/19 Recorded zoster vaccine, inactivated 04/11/19 Recorded pneumococcal 13-valent vaccine 10/05/16 Recorded pneumococcal 13-valent vaccine 07/31/16 Recorded pneumococcal 13-valent vaccine 06/28/16 Recorded pneumococcal 13-valent vaccine 04/13/10 Recorded Zostavax (oldterm) 02/22/16 Given tetanus/diphtheria/pertussis, acel(Tdap) 02/11/13 Recorde d Zoster Vaccine Live 09/29/12 Recorded pneumococcal 23-valent vaccine 04/13/10 Recorded 1Result Comment: [id number] Medications alendronate 70 mg oral tablet 1 tablet, By Mouth, Every week, OR MEDICATION OF THE DAY., # 12 tablet, 3 Refills, Maintenance, 03/09/22 13:50:00 EDT, [facility] #[id number], 179, cm, 03/09/22 13:06:00 EDT, Height Start [...] AM, 0 Refills, Maintenance, 01/26/22 10:31:00 EDT, [place], Partial fill upon patient request if the [...] Date: 09/23/17 Status: Ordered Problem List Condition Confirmation Course Effective Dates Status Health I nformant Status Adenomatous polyp of Confirmed Active colon1 Babesiosis Confirmed Active Basal cell Confirmed Active carcinoma2, 3 Bilateral hearing Confirmed Active loss Chronic anemia Confirmed Active Chronic kidney Confirmed Active disease, stage 3a4 Cough Confirmed Active Glucose intolerance Confirmed Active Dry skin Confirmed Active Interstitial lung Confirmed Active disease Incarcerated left Confirmed Active inguinal hernia Lightheadedness Confirmed Active BPH associated with Confirmed Active nocturia Osteoporosis5 Confirmed Active PAF (paroxysmal Confirmed Active atrial fibrillation)6 Elevated PSA Confirmed Active Acne rosacea Confirmed Active Tinea pedis Confirmed Active 1Colonoscopy 2014, no polyp but diverticulosis. No further colonoscopies needed. 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 Lawson4Per chart review meeting GFR qmetbcoj0geujrxm with fosamax for xhmgn8cfpczdzrawod dr. arenas Vital Signs Most recent to oldest [Reference Range]: 1 Height 179 cm (06/09/22 4:35 PM) Weight 67.3 kg (06/09/22 4:35 PM) Oxygen Saturation [94-100 %] 99 % (06/09/22 4:35 PM) Pulse Rate [55-90 bpm] 55 bpm (06/09/22 4:35 PM) Body Mass Index [18.5-24.99 kg/m2] 21 kg/m2 (06/09/22 4:35 PM) Blood Pressure [90-138/55-84 mm Hg] 104/66 mm Hg (06/09/22 4:35 PM) Mode of Delivery (Oxygen) Room air (06/09/22 4:35 PM) Blood pressure sites Arm, left (06/09/22 4:35 PM) Weight Obtained Via Standing scale (06/09/22 4:35 PM) Social History Social History Type Response Smoking Status Former smoker entered on: 11/17/17 Sex Patient Care team information PersonnelName: Tanesha EPSTEIN, Giancarlo Lazo Address: Address: [address] [place] [id number]
--- OUTSIDE RECORDS SUMMARY | 2022-07-31 07:49 | XMS_ITS | Continuity of Care Document ---
:1935 Author Organization [facility] Adult Address [address] [place] [address]- Care Team Providers Name Role Phone Giancarlo Almendarez MD Primary Care Physician [facility] Date(s): 02/25/22 - 03/27/22 [facility] Adult [address] [place] [address]- Allergies, Adverse Reactions, Alerts No Known Allergies [...] pneumococcal 23-valent vaccine 04/13/10 Recorded 1Result Comment: [id number] Medications alendronate 70 mg oral tablet 1 tablet, By Mouth, Every week, OR MEDICATION OF THE DAY., # 12 tablet, 3 Refills, Maintenance, 03/09/22 13:50:00 EDT, [facility] #[id number], 179, cm, 03/09/22 13:06:00 EDT, Height Start [...] AM, 0 Refills, Maintenance, 01/26/22 10:31:00 EDT, [place], Partial fill upon patient request if the [...] further colonoscopies needed. 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 LawsonAdihtd7aznniqm with fosamax for stlob6wccjhiuymrhx dr. arenas Social History Social History Type Response Smoking Status Former smoker entered on: 11/17/17 Sex
--- OUTSIDE RECORDS SUMMARY | 2022-07-31 07:49 | XMS_ITS | Continuity of Care Document ---
:1935 Author Organization [facility] Adult Address [address] [place] [address]- Care Team Providers Name Role Phone Giancarlo Almendarez MD Primary Care Physician [facility] [place](s): 09/15/19 - 09/25/19 [facility] Adult [address] [place] [address]- [facility] Attending Physician: Admtr, Ar8 Admitting Physician: Admtr, Ar8 Referring Physician: Admtr, Ar8 Allergies, Adverse Reactions, [...] Gm, 1 Refills, Maintenance, 09/18/19 9:44:00 EST, [place], [facility] #[id number], 1 sprays Nares, Both 2 times a [...] further colonoscopies needed. 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 LawsonQtmiry1eeyragi with fosamax for afzgd7qeamaxihuxvv dr. arenas Social History Social History Type Response Smoking Status Former smoker entered on: 11/17/17 Sex
--- OUTSIDE RECORDS SUMMARY | 2022-07-31 07:49 | XMS_ITS | Continuity of Care Document ---
:1935 Author Organization [facility] Address [address] [place] [address]- Care Team Providers Name Role Phone Giancarlo Almendarez MD Primary Care Physician Encounter [facility] Date(s): 10/20/19 - 10/27/19 [facility] [address] [place] [address]- Encounter Diagnosis Acute bronchitis (Discharge Diagnosis) - 10/20/19 Attending Physician: Eusebio NÚÑEZ Shelia Referring Physician: Giancarlo Almendarez MD Allergies, Adverse [...] 10/20/19 11:33:00 EST, Route to Pharmacy Electronically, [id number], [facility] #[id number], 179, cm, 10/20/19 10:11:00 EST, Height Start [...] further colonoscopies needed. 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 LawsonXkchnc8tmrxrgv with fosamax for pwlct7kvzcbxkgicor dr. arenas Diagnosis Diagnosis Type Effective Dates Health Clinical Infor [facility] Status Service Acute bronchitis Discharge 10/20/19 Diagnosis Vital Signs Most recent to oldest [Reference Range]: 1 Height 179 cm (10/20/19 10:11 AM) Weight 71.5 kg (10/20/19 10:11 AM) Oxygen Saturation [94-100 %] 98 % (10/20/19 10:11 AM) Pulse Rate [55-90 bpm] 88 bpm (10/20/19 10:11 AM) Body Mass Index [18.5-24.99] 22.32 (10/20/19 10:11 AM) Blood Pressure [90-138/55-84 mm Hg] 128/76 mm Hg (10/20/19 10:11 AM) Respiratory Rate [16-30 br/min] 16 br/min (10/20/19 10:11 AM) Temperature [96.8-100.4 DegF] 98.0 DegF (10/20/19 10:11 AM) Mode of Delivery (Oxygen) Room air (10/20/19 10:11 AM) Blood pressure sites Arm, left (10/20/19 10:11 AM) Temperature Route Temporal (10/20/19 10:11 AM) Weight Obtained Via Standing scale (10/20/19 10:11 AM) Social History Social History Type Response Smoking Status Former smoker entered on: 11/17/17 Sex
--- OUTSIDE RECORDS SUMMARY | 2022-07-31 07:50 | XMS_ITS | Continuity of Care Document ---
:1935 Author Organization [facility] Adult Address [address] [place] [address]- Care Team Providers Name Role Phone Giancarlo Almendarez MD Primary Care Physician [facility] Date(s): 06/25/21 - 07/25/21 [facility] Adult [address] [place] [address]- Attending Physician: Admtr, Ar8 Admitting Physician: Admtr, [...] pneumococcal 23-valent vaccine 04/13/10 Recorded 1Result Comment: [id number] Medications amiodarone 200 mg oral tablet 100 mg, 0.5, [...] 11 Refills, Maintenance, 07/23/20 14:43:00 EST, Tablet, [facility] #13283, 179, cm, 07/14... Start Date: 07/23/20 Status: [...] further colonoscopies needed. 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 LawsonIrgwky2ajknrrc with fosamax for vaemu5onmzjkqvmgpc dr. arenas Social History Social History Type Response Smoking Status Former smoker entered on: 11/17/17 Sex
--- OUTSIDE RECORDS SUMMARY | 2022-07-31 07:50 | XMS_ITS | Continuity of Care Document ---
:1935 Author Organization [facility] Adult Address [address] [place] [address]- Care Team Providers Name Role Phone Giancarlo Almendarez MD Primary Care Physician [place] [facility] 01/29/21 [facility] [address] [place] [address]- Encounter Diagnosis PAF (paroxysmal atrial fibrillation) (Discharge Diagnosis) - 01/22/21 Osteoporosis (Discharge Diagnosis) - 01/22/21 Attending Physician: Giancarlo Almendarez MD Allergies, Adverse [...] Vaccine Live 09/29/12 Recorded pneumococcal 23-valent vaccine 8/1/10 Recorded 1Result Comment: [id number] Medications amiodarone 200 mg oral tablet 200 [...] 11 Refills, Maintenance, 07/23/20 14:43:00 EST, Tablet, [facility] #48520, 179, cm, 07/14... Start Date: 07/23/20 Status: [...] further colonoscopies needed. 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 LawsonPaqbmz1jbzkxww with fosamax for lgjpj3bularooguoww dr. arenas Diagnosis Diagnosis Type Effective [facility] Clinical Infor mant Status Service PAF (paroxysmal Discharge 01/22/21 atrial Diagnosis fibrillation) Osteoporosis Discharge 01/22/21 Diagnosis Vital Signs Most recent to oldest [Reference Range]: 1 Height 179 cm (01/22/21 9:02 AM) Weight 69.1 kg (01/22/21 9:02 AM) Oxygen Saturation [94-100 %] 99 % (01/22/21 9:02 AM) Pulse Rate [55-90 bpm] 62 bpm (01/22/21 9:02 AM) Body Mass Index [18.5-24.99] 21.57 (01/22/21 9:02 AM) Blood Pressure [90-138/55-84 mm Hg] 106/66 mm Hg (01/22/21 9:02 AM) Mode of Delivery (Oxygen) Room air (01/22/21 9:02 AM) Blood pressure sites Arm, left (01/22/21 9:02 AM) Weight Obtained Via Standing scale (01/22/21 9:02 AM) Social History Social History Type Response Smoking Status Former smoker entered on: 11/17/17 Sex
--- OUTSIDE RECORDS SUMMARY | 2022-07-31 07:50 | XMS_ITS | Continuity of Care Document ---
:1935 Author Organization [facility] Adult Address [address] [place] [address]- Care Team Providers Name Role Phone Giancarlo Almendarez MD Primary Care Physician [facility] Date(s): 04/06/22 - 04/13/22 [facility] [address] [place] [address]- Attending Physician: Giancarlo Almendarez MD Allergies, Adverse [...] pneumococcal 23-valent vaccine 04/13/10 Recorded 1Result Comment: [id number] Medications alendronate 70 mg oral tablet 1 tablet, By Mouth, Every week, OR MEDICATION OF THE DAY., # 12 tablet, 3 Refills, Maintenance, 03/09/22 13:50:00 EDT, [facility] #[id number], 179, cm, 03/09/22 13:06:00 EDT, Height Start [...] AM, 0 Refills, Maintenance, 01/26/22 10:31:00 EDT, [place], Partial fill upon patient request if the [...] tablet, Refills 11, Tot. Refills 11, Maintenance, 07/01/22 16:50:00 EDT, Do Not Route, Partial fill [...] further colonoscopies needed. 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 LawsonTpbbku3svazmnw with fosamax for yzoux9lcsyjklcldik dr. arenas Vital Signs Most recent to oldest [Reference Range]: 1 Oxygen Saturation [94-100 %] 98 % (04/06/22 10:50 AM) Pulse Rate [55-90 bpm] 152 bpm *H* (04/06/22 10:50 AM) Blood Pressure [90-138/55-84 mm Hg] 108/70 mm Hg (04/06/22 10:50 AM) Respiratory Rate [16-30 br/min] 20 br/min (04/06/22 10:50 AM) Mode of Delivery (Oxygen) Room air (04/06/22 10:50 AM) Blood pressure sites Arm, left (04/06/22 10:50 AM) Social History Social History Type Response Smoking Status Former smoker entered on: 11/17/17 Sex
--- OUTSIDE RECORDS SUMMARY | 2022-07-31 07:50 | XMS_ITS | Continuity of Care Document ---
:1935 Author Organization [facility] Adult Address [address] [place] [address]- Care Team Providers Name Role Phone Giancarlo Almendarez MD Primary Care Physician En[place] [facility] [place](s): 01/16/22 - 01/23/22 [facility] [address] [place] [address]- Encounter Diagnosis PAF (paroxysmal atrial fibrillation) (Discharge Diagnosis) - 01/16/22 Attending Physician: Giancarlo Almendarez MD Allergies, Adverse [...] pneumococcal 23-valent vaccine 04/13/10 Recorded 1Result Comment: [id number] Medications alendronate 70 mg oral tablet 1 tablet, By Mouth, Every week, OR MEDICATION OF THE DAY., # 12 tablet, 1 Refills, Maintenance, 09/12/21 12:49:00 EST, [facility] #[id number], 179, cm, 06/05/21 7:24:00 EDT, Height Start [...] 01/19/22 9:33:00 EDT, Route to Pharmacy Electronically, [facility] #[id number], Partial fill upon patient request if the prescription is for a schedule II o... Start Date: 01/19/22 Stop Date: 01/14/23 Status: [...] Active Glucose intolerance(Confirmed) Active Dry skin(Confirmed) Active Lightheadedness(Confirmed) Active BPH associated with Active nocturia(Confirmed) Osteoporosis(Confirmed)4 Active PAF (paroxysmal atrial Active fibrillation)(Confirmed)5 Elevated PSA(Confirmed) Active Acne rosacea(Confirmed) Active Tinea pedis(Confirmed) Active 1Colonoscopy 2014, no polyp but diverticulosis. No further colonoscopies needed. 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 LawsonHmzxrs6mkfnyng with fosamax for zwjbk9buuhabeptvjm dr. arenas Diagnosis Diagnosis Type Effective Dates Health Status Clinical In formant Service PAF (paroxysmal Discharge 01/16/22 atrial Diagnosis fibrillation) Vital Signs Most recent to oldest [Reference Range]: 1 Height 179 cm (01/16/22 3:44 PM) Weight 67.4 kg (01/16/22 3:44 PM) Oxygen Saturation [94-100 %] 96 % (01/16/22 3:44 PM) Pulse Rate [55-90 bpm] 67 bpm (01/16/22 3:44 PM) Body Mass Index [18.5-24.99] 21.04 (01/16/22 3:44 PM) Blood Pressure [90-138/55-84 mm Hg] 120/54 mm Hg (01/16/22 3:44 PM) Mode of Delivery (Oxygen) Room air (01/16/22 3:44 PM) Blood pressure sites Arm, left (01/16/22 3:44 PM) Weight Obtained Via Standing scale (01/16/22 3:44 PM) Social History Social History Type Response Smoking Status Former smoker entered on: 11/17/17 Sex
--- OUTSIDE RECORDS SUMMARY | 2022-07-31 07:50 | XMS_ITS | Continuity of Care Document ---
:1935 Author Organization [facility] Adult Address [address] [place] [address]- Care Team Providers Name Role Phone Giancarlo Almendarez MD Primary Care Physician [facility] Date(s): 06/05/21 - 06/12/21 [facility] Adult [address] [place] [address]- Encounter Diagnosis Chronic anemia (Discharge Diagnosis) - 06/05/21 Attending Physician: Giancarlo Almendarez MD Allergies, Adverse [...] pneumococcal 23-valent vaccine 04/13/10 Recorded 1Result Comment: [id number] Medications amiodarone 200 mg oral tablet 100 [...] 11 Refills, Maintenance, 07/23/20 14:43:00 EST, Tablet, [facility] #[id number], 179, cm, 07/14... Start Date: 07/23/20 Status: [...] further colonoscopies needed. 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 LawsonIpxaeu7psladxe with fosamax for djjhn2zlfzqmakcgbz dr. arenas Diagnosis Diagnosis Type Effective Dates Health Status Clinical In formant Service Chronic anemia Discharge 06/05/21 Diagnosis Vital Signs Most recent to oldest [Reference Range]: 1 Height 179 cm (06/05/21 7:24 AM) Social History Social History Type Response Smoking Status Former smoker entered on: 11/17/17 Sex
--- OUTSIDE RECORDS SUMMARY | 2022-07-31 07:50 | XMS_ITS | Continuity of Care Document ---
:1935 Author Organization [facility] Adult Address [address] [place] [address]- Care Team Providers Name Role Phone Giancarlo Almendarez MD Primary Care Physician Encounter [facility] [place] Date(s): 06/18/20 - 06/25/20 [facility] Adult [address] [place] [address]- [facility] Attending Physician: Not on Staff, Attending MD Allergies, Adverse Reactions, Alerts Substance Reaction [...] pneumococcal 23-valent vaccine 04/13/10 Recorded 1Result Comment: [id number] Medications amiodarone 200 mg oral tablet 200 [...] further colonoscopies needed. 2basal cell cancer was 26835Hcrhsv post removal of basal cell cancer 2016, parcel post delivery Dr. LawsonEzqsos0athtnsp with fosamax for kqtoa6ewmtpqlkuxtd dr. arenas Social History Social History Type Response Smoking Status Former smoker entered on: 11/17/17 Sex
--- OUTSIDE RECORDS SUMMARY | 2022-07-31 07:50 | XMS_ITS | Continuity of Care Document ---
:1935 Author Organization [facility] Adult Address [address] [place] [address]- Care Team Providers Name Role Phone Giancarlo Almendarez MD Primary Care Physician [facility]counter [facility] Date(s): 06/01/22 - 07/01/22 [facility] [address] [place] [address]- Allergies, Adverse Reactions, Alerts No Known Allergies [...] pneumococcal 23-valent vaccine 04/13/10 Recorded 1Result Comment: [id number] Medications alendronate 70 mg oral tablet 1 tablet, By Mouth, Every week, OR MEDICATION OF THE DAY., # 12 tablet, 3 Refills, Maintenance, 03/09/22 13:50:00 EDT, [facility] #[id number], 179, cm, 03/09/22 13:06:00 EDT, Height Start [...] AM, 0 Refills, Maintenance, 01/26/22 10:31:00 EDT, [place], Partial fill upon patient request if the [...] further colonoscopies needed. 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 Lawson4Per chart review meeting GFR knyvddhe1zwdrbex with fosamax for qoluq5aiostnjlvlkk dr. arenas Social History Social History Type Response Smoking Status Former smoker entered on: 11/17/17 Sex Patient Care team information PersonnelName: Tanesha EPSTEIN, Giancarlo Lazo Address: Address: [address] [place] [id number]
--- OUTSIDE RECORDS SUMMARY | 2022-07-31 07:50 | XMS_ITS | Continuity of Care Document ---
:1935 Author Organization [facility] Adult Address [address] [place] [address]- Care Team Providers Name Role Phone Giancarlo Almendarez MD Primary Care Physician En[place] [facility] [place] [facility] [place] Date(s): 03/19/20 - 04/18/20 [facility] [address] [place] [address]- [facility] Allergies, Adverse Reactions, Alerts Substance Reaction Severity [...] further colonoscopies needed. 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 [id number] with fosamax for [id number] dr. arenas Social History Social History Type Response Smoking Status Former smoker entered on: 11/17/17 Sex
[2022-07-31 07:51] VITALS: BP 104/68; PULSE 84
[2022-07-31 08:06] LABS: Anion Gap 17 (12-20); Blood Urea Nitrogen 31 mg/dL (9-16); Calcium 9.5 mg/dL (8.4-10.2); Carbon Dioxide 23 mmol/L (22-29); Chloride 100 mmol/L (96-108); Creatinine Clr Calc Pharmacy 32.7; Estimated Glomerular Filt Rate 44; Glucose Random 117 mg/dL (60-115); Potassium 4.4 mmol/L (3.3-5.1); Sodium 136 mmol/L (135-145)
[2022-07-31 08:14] LABS: B Type Natriuretic Peptide 346 pg/mL (<100); Troponin-I High Sensitivity 36.7 ng/L (<3.5-35.0)
[2022-07-31 08:23] VITALS: BP 113/55; PULSE 78; RESP 16; O2SAT 97
[2022-07-31 08:34] LABS: Alanine Aminotransferase 25 U/L (0-40); Alkaline Phosphatase 47 U/L (39-117); Aspartate Amino Transferase 21 U/L (5-37); Bilirubin Direct 0.3 mg/dL (0.0-0.5); Bilirubin Total 0.7 mg/dL (0.0-1.0); Total Protein 6.8 g/dL (6.5-8.0)
[2022-07-31 10:49] LABS: Troponin-I High Sensitivity 43.2 ng/L (<3.5-35.0)
== END 2022-07-31 11:28 | disposition home or self-care (01) ==
PROVIDERS: Emergency Provider Emergency Medicine Emergency Medical Services; PCP Internal Medicine
DX: I95.1 Orthostatic hypotension (principal); R42 Dizziness and giddiness; R06.02 Shortness of breath; R07.89 Other chest pain; Z79.899 Other long term (current) drug therapy
CPT/HCPCS: 36415; 71045; 80048; 80076; 83880; 84484; 85027; 93005; 96360; 96361; 99284

== ENCOUNTER 2022-08-30 14:21 | Emergency (ER) | payer MEDICARE, SELFPAY ==
--- NOTE | ~2022-08-30 | XR_ITS ---
EXAMINATION: XR CHEST CLINICAL INFORMATION: Dizziness. Arm pain. COMPARISON: Chest x-ray July 31, 2022 TECHNIQUE: 2 views of the chest were obtained. FINDINGS: Cardiac silhouette is normal in size. The lungs are well aerated. There is no lobar consolidation. No pleural effusion or pneumothorax. Moderate degenerative changes of the spine. XR/XR chest 2V IMPRESSION: No acute pulmonary pathology.
--- NOTE | ~2022-08-30 | CT_ITS ---
EXAMINATION: CT HEAD WITHOUT CONTRAST CLINICAL INFORMATION: Dizziness. Left upper extremity pain. COMPARISON: CT head 06/01/2021. TECHNIQUE: Contiguous axial imaging was performed from the skull base to vertex without intravenous administration of contrast. This CT examination was performed using dose optimization techniques as appropriate, variously including the following: *Automated exposure control *Adjustment of mA and/or kV according to patient size (this includes techniques or standardized protocols for targeted exams where dose is matched to indication/reason for exam; i.e. extremities or head) *Use of iterative reconstruction technique DLP: 674 mGy-cm FINDINGS: There is no acute intracranial hemorrhage or abnormal extra-axial collection. No intracranial mass effect or midline shift. Lateral and third ventricles are proportionate to the subarachnoid spaces. No hydrocephalus. Scattered nonspecific foci of hypoattenuation are visualized within the periventricular white matter mostly represent a chronic manifestation of small vessel ischemia. Cazares-white matter projection is otherwise preserved and there is no evidence of acute territorial infarct. The calvarium and skull base are intact. Mastoid air cells and middle ear cavities are well aerated. CT/CT head/brain wo IV con IMPRESSION: There are scattered chronic small vessel ischemic changes within the periventricular white matter. Otherwise unremarkable examination. No evidence of acute territorial infarct or hemorrhage.
[2022-08-30 14:23] VITALS: BP 123/69; PULSE 107; RESP 18; TEMP 36.8; O2SAT 96; BMI 20.3
--- NOTE | 2022-08-30 14:24 | ED.DIZZY ---
HPI - Dizziness General Chief Complaint: Chest Pain <MICHELLE Patton - Last Filed: 08/30/22 15:05> Stated Complaint: Dizziness/L arm pain <MICHELLE Patton - Last Filed: 08/30/22 15:05> Time Seen by Provider: 08/30/22 17:12 <MICHELLE Patton - Last Filed: 08/30/22 15:05> Source: patient <Greg Alfred MD - Last Filed: 08/31/22 01:02> Limitations: no limitations <Greg Alfred MD - Last Filed: 08/31/22 01:02> History of Present Illness HPI Narrative: This is an 87-year-old male with a history of atrial fibrillation who was recently changed from amiodarone to Multaq. He is also on an anticoagulant. Patient notes he has had dizziness/lightheadedness for many weeks. He was seen here about a month ago was told he was mildly dehydrated. Patient however states that he has been drinking plenty of fluids and does not believe that he is dehydrated. He denies any headache. Denies vertigo symptoms. Patient denies any chest pain but has has some pain in his upper arms intermittently. He notes however that he has some cervical arthritis and has some pains off and on. He also has had a little bit of tingling in his left hand. He denies any abdominal pain, vomiting, diarrhea. He does have chronic shortness of breath. Denies any lower extremity swelling <Greg Alfred MD - Last Filed: 08/31/22 01:02> Related Data Home Medications: Home Medications Medication Instructions Recorded Confirmed alendronate 70 mg tablet 70 mg PO QWEEK 08/21/20 07/14/22 calcium carbonate 600 mg calcium 600 mg PO BID 05/23/21 07/14/22 (1,500 mg) tablet (Calcium) multivitamin 1 tab PO DAILY 05/23/21 07/14/22 desoximetasone 0.25 % topical cream appl topical BID 01/27/22 07/14/22 metronidazole 0.75 % topical cream appl topical BID PRN 01/27/22 07/14/22 vitamins A,C,A-hstz-nxfnmf 14,320 1 cap PO BID 05/19/22 07/14/22 unit-226 mg-200 unit capsule (PreserVision AREDS) Previous Rx's Medication Instructions Recorded dronedarone 400 mg tablet (Multaq) 400 mg PO BID #60 tabs 07/14/22 rivaroxaban 20 mg tablet (Xarelto) 20 mg PO QPM #30 tabs 07/31/22 midodrine 5 mg tablet 5 mg PO BID 30 days #60 tabs 08/03/22 <MICHELLE Patton - Last Filed: 08/30/22 15:05> Allergies/Adverse Reactions: Allergies Allergy/AdvReac Type Severity Reaction Status Date / Time novacain Allergy Unknown syncope Uncoded 05/19/22 10:46 <MICHELLE Patton - Last Filed: 08/30/22 15:05> Review of Systems Review of Systems: Yes all other systems are reviewed and are negative <Greg Alfred MD - Last Filed: 08/31/22 01:02> Constitutional: Constitutional: Reports as per HPI and Denies fever(s) <Greg Alfred MD - Last Filed: 08/31/22 01:02> Eyes: Eyes: Reports as per HPI and Reports no additional eye complaints <Greg Alfred MD - Last Filed: 08/31/22 01:02> ENT: Reports system reviewed and no additional complaints, except as documented, Reports as per HPI, Denies vertigo, Reports dizziness (Lightheaded), Denies nasal congestion, Denies nasal discharge and Denies sore throat <Greg Alfred MD - Last Filed: 08/31/22 01:02> Cardiovascular: Cardiovascular: Reports as per HPI, Denies chest pain, Denies syncope and Denies dyspnea <Greg Alfred MD - Last Filed: 08/31/22 01:02> Respiratory: Respiratory: Reports as per HPI, Denies cough and Denies dyspnea <Greg Alfred MD - Last Filed: 08/31/22 01:02> Gastrointestinal: Gastrointestinal: Reports as per HPI, Denies abdominal pain, Denies diarrhea and Denies vomiting <Greg Alfred MD - Last Filed: 08/31/22 01:02> Genitourinary: Genitourinary: Reports as per HPI, Denies hematuria, Denies dysuria and Denies urinary frequency <Greg Alfred MD - Last Filed: 08/31/22 01:02> Musculoskeletal: Musculoskeletal: Reports no additional musculoskeletal complaints and Denies numbness <Greg Alfred MD - Last Filed: 08/31/22 01:02> Integumentary/Breasts: Skin/Breast: Reports as per HPI and Denies rash <Greg Alfred MD - Last Filed: 08/31/22 01:02> Neurologic: Reports as per HPI, Denies vertigo, Reports dizziness (Lightheaded), Denies syncope, Denies focal weakness and Denies numbness <Greg Alfred MD - Last Filed: 08/31/22 01:02> Psychiatric: Psychiatric: Reports no additional psychiatric complaints and Reports as per HPI <Greg Alfred MD - Last Filed: 08/31/22 01:02> Endocrine: Endocrine: Reports no additional endocrine complaints and Reports as per HPI <Greg Alfred MD - Last Filed: 08/31/22 01:02> Hematologic/Lymphatic: Hematologic/Lymphatic: Reports no additional hematologic/lymphatic complaints, Reports as per HPI and Reports other (No peripheral edema) <Greg Alfred MD - Last Filed: 08/31/22 01:02> [facility] Past Medical History Medical History: Medical History Enlarged thoracic aorta Osteopenia Paroxysmal atrial fibrillation <MICHELLE Patton - Last Filed: 08/30/22 15:05> Surgical History: Surgical History Hx of appendectomy Hx of basal cell carcinoma excision Hx of cataract surgery Hx of colonoscopy Hx of hernia repair Hx of prostate biopsy <MICHELLE Patton - Last Filed: 08/30/22 15:05> Family History Family History: Family History Father Throat cancer Mother Parkinson disease <MICHELLE Patton - Last Filed: 08/30/22 15:05> Social History Social History: Social History Alcohol intake: never Patient Tobacco Use Status: Former Tobacco user Quit Date: 40 yrs ago Advance Directives: No Advance Directives Information Provided: Yes service: Yes Current occupational status: retired <MICHELLE Patton - Last Filed: 08/30/22 15:05> Physical Exam Vital Signs: Vital Signs: Last Vital Signs Temp 98 F 08/30/22 18:17 Pulse 78 08/30/22 18:17 Resp 18 08/30/22 18:17 BP 132/87 08/30/22 18:17 Pulse Ox 98 08/30/22 18:17 O2 Del Method 08/30/22 18:17 BMI result Body Mass Index 20.3 <MICHELLE Patton - Last Filed: 08/30/22 15:05> Vital Signs: Last Vital Signs Temp 98 F 08/30/22 18:17 Pulse 78 08/30/22 18:17 Resp 18 08/30/22 18:17 BP 132/87 08/30/22 18:17 Pulse Ox 98 08/30/22 18:17 O2 Del Method 08/30/22 18:17 BMI result Body Mass Index 20.3 <Greg Alfred MD - Last Filed: 08/31/22 01:02> Const: General: healthy appearing (Except for a thin build, and underweight.), comfortable, no acute distress, alert and awake <Greg Alfred MD - Last Filed: 08/31/22 01:02> Orientation/consciousness: patient oriented x3 <Greg Alfred MD - Last Filed: 08/31/22 01:02> HEENT: Head: Yes normal to inspection <Greg Alfred MD - Last Filed: 08/31/22 01:02> General nose exam: No nasal polyps present, No nasal discharge present and Other nasal findings present (Has mild nasal congestion on both sides) <Greg Alfred MD - Last Filed: 08/31/22 01:02> Face and sinus: Yes sinuses nontender <Greg Alfred MD - Last Filed: 08/31/22 01:02> Mouth: oropharynx normal <Greg Alfred MD - Last Filed: 08/31/22 01:02> Throat: Yes posterior oropharynx normal <Greg Alfred MD - Last Filed: 08/31/22 01:02> Eyes: General: appearance normal, both eyes and all related structures <Greg Alfred MD - Last Filed: 08/31/22 01:02> Neck: Neck: Yes normal visual inspection, Yes no lymphadenopathy, Yes trachea midline and Yes no JVD <Greg Alfred MD - Last Filed: 08/31/22 01:02> Thyroid: Thyroid normal <Greg Alfred MD - Last Filed: 08/31/22 01:02> Chest: Chest palpation & inspection: normal inspection of the chest, normal palpation of entire chest wall and no tenderness <Greg Alfred MD - Last Filed: 08/31/22 01:02> Resp: Other: Percussion note resonant, has good equal breath sounds on both sides. There are NO inspiratory crepitations over basilar areas, AND NO WHEEZES . <Greg Alfred MD - Last Filed: 08/31/22 01:02> Cardio: Palpation: normal PMI <Greg Alfred MD - Last Filed: 08/31/22 01:02> Rate: regular rate <Greg Alfred MD - Last Filed: 08/31/22 01:02> Rhythm: regular rhythm <Greg Alfred MD - Last Filed: 08/31/22 01:02> Heart sounds: no gallops and no murmurs <Greg Alfred MD - Last Filed: 08/31/22 01:02> Peripheral pulses: Peripheral pulses 2+ throughout <Greg Alfred MD - Last Filed: 08/31/22 01:02> GI: Palpation (GI): Soft to palpation, nontender, No hepatosplenomegaly present and no masses <Greg Alfred MD - Last Filed: 08/31/22 01:02> Auscultation: normal bowel sounds <Greg Alfred MD - Last Filed: 08/31/22 01:02> Back/Spine/Pelvis: Thoracic/Lumbar Spine: thoracic and lumbar spine normal to inspection <Greg Alfred MD - Last Filed: 08/31/22 01:02> Skin: General skin exam: no rashes or lesions noted <Greg Alfred MD - Last Filed: 08/31/22 01:02> Neuro: General: patient oriented x3 and no focal motor deficits <Greg Alfred MD - Last Filed: 08/31/22 01:02> Cranial nerves: Yes CN's II-XII intact bilaterally <Greg Alfred MD - Last Filed: 08/31/22 01:02> Extrem: General: Yes normal to inspection, Yes no clubbing, cyanosis or edema and Yes no calf tenderness <Greg Alfred MD - Last Filed: 08/31/22 01:02> Psych: Appearance: grossly normal and well kempt <Greg Alfred MD - Last Filed: 08/31/22 01:02> Speech and movement: Normal speech and movement present <Greg Alfred MD - Last Filed: 08/31/22 01:02> Course Course Course Narrative: RME-14:30PM - 87-year-old male was being followed by Dr. Prado performance improvement director and has a past medical history of high blood pressure and atrial fibrillation on blood thinners taking as prescribed was presenting to the ED with complaints of lightheadedness/dizziness for the past few months to weeks. Reports that usually goes away in the afternoon although today it has not gone away and he has been having pain in his arms and this is new. This is the reason why he came here today. Reports he has a history of arthritis is unsure if this is related. Reports associated SOB/ISN. Denies any worsening dizziness, change in vision, nausea/vomiting, jaw pain, chest pain, orthopnea, palpitations, paresthesias, abdominal pain, worsening back pain, lower extremity edema or calf tenderness or any other symptoms complaints or concerns at this time Plan: Labs, EKG, chest x-ray, CT scan of brain without contrast. Patient is stable to go back to the waiting room to be evaluated in the ED. <MICHELLE Patton - Last Filed: 08/30/22 15:05> Medications Administered Discontinued Medications Generic Name Dose Route Start Last Admin Trade Name Freq PRN Reason Stop Dose Admin Sodium Chloride 500 mls @ 500 mls/hr 08/30/22 17:30 08/30/22 17:58 Ns IV 08/30/22 18:29 500 mls/hr .Q1H MARILY Administration <MICHELLE Patton - Last Filed: 08/30/22 15:05> Medications Administered Discontinued Medications Generic Name Dose Route Start Last Admin Trade Name Freq PRN Reason Stop Dose Admin Sodium Chloride 500 mls @ 500 mls/hr 08/30/22 17:30 08/30/22 17:58 Ns IV 08/30/22 18:29 500 mls/hr .Q1H MARILY Administration <Greg Alfred MD - Last Filed: 08/31/22 01:02> Medical Decision Making Medical Decision Making MDM Narrative: Patient with history of atrial fibrillation, had medicines adjusted month or so ago, has had some associated dizziness. Patient is on midodrine, which is used for hypotension. Patient also had been put on Multaq. Patient has a regular rhythm on exam however EKG did show atrial flutter with 3-1 conduction. Patient's BUN to creatinine ratio was mildly elevated and he was hydrated with normal saline IV. The patient denies being dehydrated as he says he drinks plenty of fluids at home. Patient not ill appearing and laboratory and radiology evaluation otherwise was unremarkable. Patient is safe for outpatient follow-up, may need medication adjustment by his primary care physician or performance improvement director <Greg Alfred MD - Last Filed: 08/31/22 01:02> Lab Data MDM Lab Attestation statement: I reviewed the patient's lab results. <Greg Alfred MD - Last Filed: 08/31/22 01:02> Result Diagrams: : 08/30/22 16:32 08/30/22 16:32 <MICHELLE Patton - Last Filed: 08/30/22 15:05> Labs: Lab Results 08/30/22 08/30/22 08/30/22 Range/Units 16:24 16:27 16:32 WBC 7.4 (4.8-10.8) X10*3/uL RBC 3.84 L (4.60-5.80) X10*6/uL Hgb 11.6 L (14.0-18.0) g/dl Hct 34.8 L (42.0-52.0) % MCV 90.6 (80.0-98.0) fL MCH 30.2 (27.0-33.0) pg MCHC 33.3 (31.0-36.0) g/dl RDW 12.2 (11.0-16.0) % Plt Count 195 (160-400) X10*3/uL MPV 9.9 (9.4-12.4) fL Immature Gran % (Auto) 0.4 (0.0-0.4) % Neut % (Auto) 65.1 (45-73) % Lymph % (Auto) 15.1 L (20-40) % [place] % (Auto) 12.8 H (2-11) % Eos % (Auto) 6.1 H (0-4) % Baso % (Auto) 0.5 (0-2) % Lymph # (Auto) 1.1 L (1.2-4.9) X10*3/uL [place] # (Auto) 1.0 (0.1-1.2) X10*3/uL Eos # (Auto) 0.5 H (0.0-0.4) X10*3/uL Baso # (Auto) 0.0 (0.0-0.2) X10*3/uL Abs Immat Gran (auto) 0.03 (0.00-0.03) X10*3/uL Absolute Neuts (auto) 4.8 (2.0-8.3) x10*3/uL Absolute Nucleated RBC 0.000 (0.0-0.012) X10*3/uL Nucleated RBC % (auto) 0.0 (0.0-0.2) /100WBC PT (10.0-13.1) SEC INR (0.9-1.1) Sodium (135-145) mmol/L Potassium (3.3-5.1) mmol/L Chloride (96-108) mmol/L Carbon Dioxide (22-29) mmol/L Anion Gap (12-20) BUN (9-16) mg/dL Creatinine (0.5-1.4) mg/dL Estim Creat Clear Calc Estimated GFR Random Glucose (60-115) mg/dL Calcium (8.4-10.2) mg/dL Magnesium (1.6-2.6) mg/dL Total Bilirubin (0.0-1.0) mg/dL AST (5-37) U/L ALT (0-40) U/L Alkaline Phosphatase (39-117) U/L Troponin I High Sens (<3.5-35.0) ng/L B-Natriuretic Peptide (<100) pg/mL Total Protein (6.5-8.0) g/dL Albumin (3.5-5.0) g/dL Urine Color Yellow Urine Appearance Clear Urine pH 7.0 (5.0-9.0) Ur Specific [place] 1.010 (1.005-1.025) Urine Protein Negative (Neg-Trace) mg/dL Urine Glucose (UA) Negative (Negative) mg/dL Urine Ketones Negative (Negative) mg/dL Urine Blood Trace H (Negative) Urine Nitrite Negative (Negative) Ur Leukocyte Esterase Negative (Negative) Urine RBC 0-2 (0-2) /HPF Urine WBC 0-5 (0-5) /HPF Ur Squamous Epith Cells 0-2 (0-2) /HPF Urine Bacteria None Seen (None Seen) Hyaline Casts 0-2 (0-2) /LPF Influenza Type A (PCR) NEGATIVE (Negative) Influenza Type B (PCR) NEGATIVE (Negative) RSV RNA Qual (PCR) NEGATIVE (Negative) SARS-CoV-2 RNA (RT-PCR) NEGATIVE (Negative) 08/30/22 08/30/22 08/30/22 Range/Units 16:32 16:32 16:32 WBC (4.8-10.8) X10*3/uL RBC (4.60-5.80) X10*6/uL Hgb (14.0-18.0) g/dl Hct (42.0-52.0) % MCV (80.0-98.0) fL MCH (27.0-33.0) pg MCHC (31.0-36.0) g/dl RDW (11.0-16.0) % Plt Count (160-400) X10*3/uL MPV (9.4-12.4) fL Immature Gran % (Auto) (0.0-0.4) % Neut % (Auto) (45-73) % Lymph % (Auto) (20-40) % [place] % (Auto) (2-11) % Eos % (Auto) (0-4) % Baso % (Auto) (0-2) % Lymph # (Auto) (1.2-4.9) X10*3/uL [place] # (Auto) (0.1-1.2) X10*3/uL Eos # (Auto) (0.0-0.4) X10*3/uL Baso # (Auto) (0.0-0.2) X10*3/uL Abs Immat Gran (auto) (0.00-0.03) X10*3/uL Absolute Neuts (auto) (2.0-8.3) x10*3/uL Absolute Nucleated RBC (0.0-0.012) X10*3/uL Nucleated RBC % (auto) (0.0-0.2) /100WBC PT 16.1 H (10.0-13.1) SEC INR 1.4 H (0.9-1.1) Sodium 137 (135-145) mmol/L Potassium 4.2 (3.3-5.1) mmol/L Chloride 101 (96-108) mmol/L Carbon Dioxide 27 (22-29) mmol/L Anion Gap 13 (12-20) BUN 30 H (9-16) mg/dL Creatinine 1.36 (0.5-1.4) mg/dL Estim Creat Clear Calc 34.8 Estimated GFR 50 Random Glucose 94 (60-115) mg/dL Calcium 8.9 D (8.4-10.2) mg/dL Magnesium 2.3 (1.6-2.6) mg/dL Total Bilirubin 0.6 (0.0-1.0) mg/dL AST 16 (5-37) U/L ALT 17 (0-40) U/L Alkaline Phosphatase 56 (39-117) U/L Troponin I High Sens 5.7 (<3.5-35.0) ng/L B-Natriuretic Peptide (<100) pg/mL Total Protein 6.5 (6.5-8.0) g/dL Albumin 4.1 (3.5-5.0) g/dL Urine Color Urine Appearance Urine pH (5.0-9.0) Ur Specific [place] (1.005-1.025) Urine Protein (Neg-Trace) mg/dL Urine Glucose (UA) (Negative) mg/dL Urine Ketones (Negative) mg/dL Urine Blood (Negative) Urine Nitrite (Negative) Ur Leukocyte Esterase (Negative) Urine RBC (0-2) /HPF Urine WBC (0-5) /HPF Ur Squamous Epith Cells (0-2) /HPF Urine Bacteria (None Seen) Hyaline Casts (0-2) /LPF Influenza Type A (PCR) (Negative) Influenza Type B (PCR) (Negative) RSV RNA Qual (PCR) (Negative) SARS-CoV-2 RNA (RT-PCR) (Negative) 08/30/22 Range/Units 16:32 WBC (4.8-10.8) X10*3/uL RBC (4.60-5.80) X10*6/uL Hgb (14.0-18.0) g/dl Hct (42.0-52.0) % MCV (80.0-98.0) fL MCH (27.0-33.0) pg MCHC (31.0-36.0) g/dl RDW (11.0-16.0) % Plt Count (160-400) X10*3/uL MPV (9.4-12.4) fL Immature Gran % (Auto) (0.0-0.4) % Neut % (Auto) (45-73) % Lymph % (Auto) (20-40) % [place] % (Auto) (2-11) % Eos % (Auto) (0-4) % Baso % (Auto) (0-2) % Lymph # (Auto) (1.2-4.9) X10*3/uL [place] # (Auto) (0.1-1.2) X10*3/uL Eos # (Auto) (0.0-0.4) X10*3/uL Baso # (Auto) (0.0-0.2) X10*3/uL Abs Immat Gran (auto) (0.00-0.03) X10*3/uL Absolute Neuts (auto) (2.0-8.3) x10*3/uL Absolute Nucleated RBC (0.0-0.012) X10*3/uL Nucleated RBC % (auto) (0.0-0.2) /100WBC PT (10.0-13.1) SEC INR (0.9-1.1) Sodium (135-145) mmol/L Potassium (3.3-5.1) mmol/L Chloride (96-108) mmol/L Carbon Dioxide (22-29) mmol/L Anion Gap (12-20) BUN (9-16) mg/dL Creatinine (0.5-1.4) mg/dL Estim Creat Clear Calc Estimated GFR Random Glucose (60-115) mg/dL Calcium (8.4-10.2) mg/dL Magnesium (1.6-2.6) mg/dL Total Bilirubin (0.0-1.0) mg/dL AST (5-37) U/L ALT (0-40) U/L Alkaline Phosphatase (39-117) U/L Troponin I High Sens (<3.5-35.0) ng/L B-Natriuretic Peptide 197 H (<100) pg/mL Total Protein (6.5-8.0) g/dL Albumin (3.5-5.0) g/dL Urine Color Urine Appearance Urine pH (5.0-9.0) Ur Specific [place] (1.005-1.025) Urine Protein (Neg-Trace) mg/dL Urine Glucose (UA) (Negative) mg/dL Urine Ketones (Negative) mg/dL Urine Blood (Negative) Urine Nitrite (Negative) Ur Leukocyte Esterase (Negative) Urine RBC (0-2) /HPF Urine WBC (0-5) /HPF Ur Squamous Epith Cells (0-2) /HPF Urine Bacteria (None Seen) Hyaline Casts (0-2) /LPF Influenza Type A (PCR) (Negative) Influenza Type B (PCR) (Negative) RSV RNA Qual (PCR) (Negative) SARS-CoV-2 RNA (RT-PCR) (Negative) <MICHELLE Patton - Last Filed: 08/30/22 15:05> Lab Results 08/30/22 08/30/22 08/30/22 Range/Units 16:24 16:27 16:32 WBC 7.4 (4.8-10.8) X10*3/uL RBC 3.84 L (4.60-5.80) X10*6/uL Hgb 11.6 L (14.0-18.0) g/dl Hct 34.8 L (42.0-52.0) % MCV 90.6 (80.0-98.0) fL MCH 30.2 (27.0-33.0) pg MCHC 33.3 (31.0-36.0) g/dl RDW 12.2 (11.0-16.0) % Plt Count 195 (160-400) X10*3/uL MPV 9.9 (9.4-12.4) fL Immature Gran % (Auto) 0.4 (0.0-0.4) % Neut % (Auto) 65.1 (45-73) % Lymph % (Auto) 15.1 L (20-40) % [place] % (Auto) 12.8 H (2-11) % Eos % (Auto) 6.1 H (0-4) % Baso % (Auto) 0.5 (0-2) % Lymph # (Auto) 1.1 L (1.2-4.9) X10*3/uL [place] # (Auto) 1.0 (0.1-1.2) X10*3/uL Eos # (Auto) 0.5 H (0.0-0.4) X10*3/uL Baso # (Auto) 0.0 (0.0-0.2) X10*3/uL Abs Immat Gran (auto) 0.03 (0.00-0.03) X10*3/uL Absolute Neuts (auto) 4.8 (2.0-8.3) x10*3/uL Absolute Nucleated RBC 0.000 (0.0-0.012) X10*3/uL Nucleated RBC % (auto) 0.0 (0.0-0.2) /100WBC PT (10.0-13.1) SEC INR (0.9-1.1) Sodium (135-145) mmol/L Potassium (3.3-5.1) mmol/L Chloride (96-108) mmol/L Carbon Dioxide (22-29) mmol/L Anion Gap (12-20) BUN (9-16) mg/dL Creatinine (0.5-1.4) mg/dL Estim Creat Clear Calc Estimated GFR Random Glucose (60-115) mg/dL Calcium (8.4-10.2) mg/dL Magnesium (1.6-2.6) mg/dL Total Bilirubin (0.0-1.0) mg/dL AST (5-37) U/L ALT (0-40) U/L Alkaline Phosphatase (39-117) U/L Troponin I High Sens (<3.5-35.0) ng/L B-Natriuretic Peptide (<100) pg/mL Total Protein (6.5-8.0) g/dL Albumin (3.5-5.0) g/dL Urine Color Yellow Urine Appearance Clear Urine pH 7.0 (5.0-9.0) Ur Specific [place] 1.010 (1.005-1.025) Urine Protein Negative (Neg-Trace) mg/dL Urine Glucose (UA) Negative (Negative) mg/dL Urine Ketones Negative (Negative) mg/dL Urine Blood Trace H (Negative) Urine Nitrite Negative (Negative) Ur Leukocyte Esterase Negative (Negative) Urine RBC 0-2 (0-2) /HPF Urine WBC 0-5 (0-5) /HPF Ur Squamous Epith Cells 0-2 (0-2) /HPF Urine Bacteria None Seen (None Seen) Hyaline Casts 0-2 (0-2) /LPF Influenza Type A (PCR) NEGATIVE (Negative) Influenza Type B (PCR) NEGATIVE (Negative) RSV RNA Qual (PCR) NEGATIVE (Negative) SARS-CoV-2 RNA (RT-PCR) NEGATIVE (Negative) 08/30/22 08/30/22 08/30/22 Range/Units 16:32 16:32 16:32 WBC (4.8-10.8) X10*3/uL RBC (4.60-5.80) X10*6/uL Hgb (14.0-18.0) g/dl Hct (42.0-52.0) % MCV (80.0-98.0) fL MCH (27.0-33.0) pg MCHC (31.0-36.0) g/dl RDW (11.0-16.0) % Plt Count (160-400) X10*3/uL MPV (9.4-12.4) fL Immature Gran % (Auto) (0.0-0.4) % Neut % (Auto) (45-73) % Lymph % (Auto) (20-40) % [place] % (Auto) (2-11) % Eos % (Auto) (0-4) % Baso % (Auto) (0-2) % Lymph # (Auto) (1.2-4.9) X10*3/uL [place] # (Auto) (0.1-1.2) X10*3/uL Eos # (Auto) (0.0-0.4) X10*3/uL Baso # (Auto) (0.0-0.2) X10*3/uL Abs Immat Gran (auto) (0.00-0.03) X10*3/uL Absolute Neuts (auto) (2.0-8.3) x10*3/uL Absolute Nucleated RBC (0.0-0.012) X10*3/uL Nucleated RBC % (auto) (0.0-0.2) /100WBC PT 16.1 H (10.0-13.1) SEC INR 1.4 H (0.9-1.1) Sodium 137 (135-145) mmol/L Potassium 4.2 (3.3-5.1) mmol/L Chloride 101 (96-108) mmol/L Carbon Dioxide 27 (22-29) mmol/L Anion Gap 13 (12-20) BUN 30 H (9-16) mg/dL Creatinine 1.36 (0.5-1.4) mg/dL Estim Creat Clear Calc 34.8 Estimated GFR 50 Random Glucose 94 (60-115) mg/dL Calcium 8.9 D (8.4-10.2) mg/dL Magnesium 2.3 (1.6-2.6) mg/dL Total Bilirubin 0.6 (0.0-1.0) mg/dL AST 16 (5-37) U/L ALT 17 (0-40) U/L Alkaline Phosphatase 56 (39-117) U/L Troponin I High Sens 5.7 (<3.5-35.0) ng/L B-Natriuretic Peptide (<100) pg/mL Total Protein 6.5 (6.5-8.0) g/dL Albumin 4.1 (3.5-5.0) g/dL Urine Color Urine Appearance Urine pH (5.0-9.0) Ur Specific [place] (1.005-1.025) Urine Protein (Neg-Trace) mg/dL Urine Glucose (UA) (Negative) mg/dL Urine Ketones (Negative) mg/dL Urine Blood (Negative) Urine Nitrite (Negative) Ur Leukocyte Esterase (Negative) Urine RBC (0-2) /HPF Urine WBC (0-5) /HPF Ur Squamous Epith Cells (0-2) /HPF Urine Bacteria (None Seen) Hyaline Casts (0-2) /LPF Influenza Type A (PCR) (Negative) Influenza Type B (PCR) (Negative) RSV RNA Qual (PCR) (Negative) SARS-CoV-2 RNA (RT-PCR) (Negative) 08/30/22 Range/Units 16:32 WBC (4.8-10.8) X10*3/uL RBC (4.60-5.80) X10*6/uL Hgb (14.0-18.0) g/dl Hct (42.0-52.0) % MCV (80.0-98.0) fL MCH (27.0-33.0) pg MCHC (31.0-36.0) g/dl RDW (11.0-16.0) % Plt Count (160-400) X10*3/uL MPV (9.4-12.4) fL Immature Gran % (Auto) (0.0-0.4) % Neut % (Auto) (45-73) % Lymph % (Auto) (20-40) % [place] % (Auto) (2-11) % Eos % (Auto) (0-4) % Baso % (Auto) (0-2) % Lymph # (Auto) (1.2-4.9) X10*3/uL [place] # (Auto) (0.1-1.2) X10*3/uL Eos # (Auto) (0.0-0.4) X10*3/uL Baso # (Auto) (0.0-0.2) X10*3/uL Abs Immat Gran (auto) (0.00-0.03) X10*3/uL Absolute Neuts (auto) (2.0-8.3) x10*3/uL Absolute Nucleated RBC (0.0-0.012) X10*3/uL Nucleated RBC % (auto) (0.0-0.2) /100WBC PT (10.0-13.1) SEC INR (0.9-1.1) Sodium (135-145) mmol/L Potassium (3.3-5.1) mmol/L Chloride (96-108) mmol/L Carbon Dioxide (22-29) mmol/L Anion Gap (12-20) BUN (9-16) mg/dL Creatinine (0.5-1.4) mg/dL Estim Creat Clear Calc Estimated GFR Random Glucose (60-115) mg/dL Calcium (8.4-10.2) mg/dL Magnesium (1.6-2.6) mg/dL Total Bilirubin (0.0-1.0) mg/dL AST (5-37) U/L ALT (0-40) U/L Alkaline Phosphatase (39-117) U/L Troponin I High Sens (<3.5-35.0) ng/L B-Natriuretic Peptide 197 H (<100) pg/mL Total Protein (6.5-8.0) g/dL Albumin (3.5-5.0) g/dL Urine Color Urine Appearance Urine pH (5.0-9.0) Ur Specific [place] (1.005-1.025) Urine Protein (Neg-Trace) mg/dL Urine Glucose (UA) (Negative) mg/dL Urine Ketones (Negative) mg/dL Urine Blood (Negative) Urine Nitrite (Negative) Ur Leukocyte Esterase (Negative) Urine RBC (0-2) /HPF Urine WBC (0-5) /HPF Ur Squamous Epith Cells (0-2) /HPF Urine Bacteria (None Seen) Hyaline Casts (0-2) /LPF Influenza Type A (PCR) (Negative) Influenza Type B (PCR) (Negative) RSV RNA Qual (PCR) (Negative) SARS-CoV-2 RNA (RT-PCR) (Negative) <Greg Alfred MD - Last Filed: 08/31/22 01:02> Independent Interpretation I performed an independent interpretation of an: EKG <Greg Alfred MD - Last Filed: 08/31/22 01:02> Interpretation: Atrial flutter with a ventricular response of 77. Apparent 3-[address] elevation or depression. Normal QRS axis. <Greg Alfred MD - Last Filed: 08/31/22 01:02> Radiology Impression Discussion of test interpretation with radiology: I have reviewed the radiologist's reading. <Greg Alfred MD - Last Filed: 08/31/22 01:02> Radiologist Impression: CT brain no acute pathology; chest x-ray, no acute pulmonary disease <Greg Alfred MD - Last Filed: 08/31/22 01:02> Chronic Conditions Patient?s care impacted by: Other (Heart disease-atrial fibrillation) <Greg Alfred MD - Last Filed: 08/31/22 01:02> Discharge Plan Discharge Clinical Impression: Atrial flutter, chronic, Lightheadedness <MICHELLE Patton - Last Filed: 08/30/22 15:05> Patient Disposition: Home, Self-Care <MICHELLE Patton - Last Filed: 08/30/22 15:05> Instructions: Atrial Flutter (ED), Lightheadedness (ED) <MICHELLE Patton - Last Filed: 08/30/22 15:05> Additional Instructions: Continue current medications. Follow-up with your performance improvement director or primary care physician regarding your lightheadedness, which may be medication related. Continue drinking plenty of fluids. Return for any new or worsened symptoms <MICHELLE Patton - Last Filed: 08/30/22 15:05> Prescriptions: No Action Xarelto 20 mg tablet 20 mg PO QPM Qty: 30 5RF midodrine 5 mg tablet 5 mg PO BID 30 Days Qty: 60 5RF Rx Instructions: Take at 07:30am and 11:30am multivitamin Tablet 1 tab PO DAILY calcium carbonate [Calcium 600] 600 mg calcium (1,500 mg) Tablet 600 mg PO BID alendronate 70 mg tablet 70 mg PO QWEEK desoximetasone 0.25 % cream topical BID metronidazole 0.75 % cream topical BID PRN PreserVision AREDS [id number],[id number] qnea-wj-scir capsule 1 cap PO BID Multaq 400 mg tablet 400 mg PO BID Qty: 60 2RF Rx Instructions: must administer with a meal/food <MICHELLE Patton - Last Filed: 08/30/22 15:05> Interventions: ED Discharge Assessment Last Done: 08/30/22 18:53 <MICHELLE Patton - Last Filed: 08/30/22 15:05> Discharge Date/Time: 08/30/22 19:26 <MICHELLE Patton - Last Filed: 08/30/22 15:05>
--- NOTE | 2022-08-30 14:25 | ECG_ITS ---
Test Reason : CHEST PAIN Blood Pressure : / mmHG Vent. Rate : 077 BPM Atrial Rate : 271 BPM P-R Int : 000 ms QRS Dur : 068 ms QT Int : 378 ms P-R-T Axes : 000 004 030 degrees QTc Int : 427 ms Atrial flutter with variable A-V block Abnormal ECG When compared with ECG of 31-JUL-2022 07:35, Atrial flutter has replaced Atrial fibrillation Referred By: Guillermina Rosenthal Electronically Signed By:Jamison Reza
[2022-08-30 16:39] LABS: MANUAL DIFF FLAG NO
[2022-08-30 16:41] LABS: Basophils Percent Auto 0.5 % (0-2); Eosinophils Absolute Auto 0.5 X10*3/uL (0.0-0.4); Eosinophils Percent Auto 6.1 % (0-4); Hematocrit 34.8 % (42.0-52.0); Hemoglobin 11.6 g/dl (14.0-18.0); Imm Gran Abs Auto 0.03 X10*3/uL (0.00-0.03); Imm Gran Pct Auto 0.4 % (0.0-0.4); Lymphocytes Absolute Auto 1.1 X10*3/uL (1.2-4.9); Lymphocytes Percent Auto 15.1 % (20-40); Mean Corpuscular HGB Conc 33.3 g/dl (31.0-36.0); Mean Corpuscular Hemoglobin 30.2 pg (27.0-33.0); Mean Corpuscular Volume 90.6 fL (80.0-98.0); Mean Platelet Volume 9.9 fL (9.4-12.4); Monocytes Percent Auto 12.8 % (2-11); Neutrophils Absolute Auto 4.8 x10*3/uL (2.0-8.3); Neutrophils Percent Auto 65.1 % (45-73); Platelet Count 195 X10*3/uL (160-400); Red Blood Count 3.84 X10*6/uL (4.60-5.80); Red Cell Distribution Width 12.2 % (11.0-16.0); White Blood Count 7.4 X10*3/uL (4.8-10.8)
[2022-08-30 16:43] LABS: Appearance Urine Clear; Color Urine Yellow; Glucose Urine UA Negative (Negative); Leukocyte Esterase Urine Negative (Negative); Nitrite Urine Negative (Negative); UMIC TRIGGER UACC YES; Urine Blood Trace (Negative); Urine Ketones Negative (Negative); Urine Protein Negative (Neg-Trace)
[2022-08-30 16:48] LABS: Bacteria Urine None Seen (None Seen); Hyaline Casts Urine 0-2 /LPF (0-2); RBC Urine 0-2 /HPF (0-2); Squamous Epithelial Cell Urine 0-2 /HPF (0-2); WBC Urine 0-5 /HPF (0-5)
[2022-08-30 16:49] LABS: INTERNATIONAL NORM RATIO 1.4 (0.9-1.1); Prothrombin Time 16.1 SEC (10.0-13.1)
[2022-08-30 16:58] LABS: Alanine Aminotransferase 17 U/L (0-40); Albumin Level 4.1 g/dL (3.5-5.0); Alkaline Phosphatase 56 U/L (39-117); Anion Gap 13 (12-20); Aspartate Amino Transferase 16 U/L (5-37); Bilirubin Total 0.6 mg/dL (0.0-1.0); Blood Urea Nitrogen 30 mg/dL (9-16); Calcium 8.9 mg/dL (8.4-10.2); Carbon Dioxide 27 mmol/L (22-29); Chloride 101 mmol/L (96-108); Creatinine Clr Calc Pharmacy 34.8; Estimated Glomerular Filt Rate 50; Glucose Random 94 mg/dL (60-115); Magnesium 2.3 mg/dL (1.6-2.6); Potassium 4.2 mmol/L (3.3-5.1); Sodium 137 mmol/L (135-145); Total Protein 6.5 g/dL (6.5-8.0)
[2022-08-30 17:00] LABS: B Type Natriuretic Peptide 197 pg/mL (<100); Troponin-I High Sensitivity 5.7 ng/L (<3.5-35.0)
[2022-08-30 17:16] LABS: Influenza A PCR NEGATIVE (Negative); Influenza B PCR NEGATIVE (Negative); Resp Syncy Virus RNA Qual PCR NEGATIVE (Negative); SARS COV2 PCR INHOUSE NEGATIVE (Negative)
[2022-08-30 17:49] VITALS: BP 127/60; PULSE 57; RESP 16; TEMP 36.6; O2SAT 99
[2022-08-30] MEDS: 0.9 % Sodium Chloride 500 ML IV (17:58)
[2022-08-30 18:17] VITALS: BP 132/87; PULSE 78; RESP 18; TEMP 36.6; O2SAT 98
== END 2022-08-30 19:26 | disposition home or self-care (01) ==
PROVIDERS: Physician Assistant Medical; Emergency Provider Emergency Medicine; PCP Internal Medicine
DX: R07.89 Other chest pain (principal); R42 Dizziness and giddiness; R06.02 Shortness of breath; I48.92 Unspecified atrial flutter; M79.602 Pain in left arm; Z20.822 Contact with and (suspected) exposure to COVID-19; Z79.899 Other long term (current) drug therapy
CPT/HCPCS: 0241U; 70450; 71046; 80053; 81001; 83735; 83880; 84484; 85025; 85610; 93005; 99285

== ENCOUNTER → 2022-09-03 13:45 | Outpatient (BNVA) | payer MEDICARE, SELFPAY | PROVIDERS: PCP Internal Medicine; Visit Provider Internal Medicine Cardiovascular Disease | DX: I48.0 Paroxysmal atrial fibrillation (principal); I95.9 Hypotension, unspecified | CPT/HCPCS: 93005; 99212 ==

== ENCOUNTER → 2022-10-14 09:31 | Outpatient (BNVA) | payer MEDICARE, SELFPAY | PROVIDERS: PCP Internal Medicine; Referring Provider Internal Medicine; Visit Provider Internal Medicine Cardiovascular Disease | DX: I48.0 Paroxysmal atrial fibrillation (principal); I77.89 Other specified disorders of arteries and arterioles; I95.9 Hypotension, unspecified | CPT/HCPCS: 99212 ==

== ENCOUNTER → 2022-10-29 14:00 | Outpatient (REF) | payer MEDICARE, SELFPAY ==
--- NOTE | ~2022-10-29 | US_ITS ---
EXAMINATION: US EXTRACRANIAL CAROTID DUPLEX, BILATERAL CLINICAL INFORMATION: Dizziness and giddiness. COMPARISON: None TECHNIQUE: Real-time ultrasound and Doppler techniques (integrating B-mode 2-D vascular images, Doppler spectral analysis and color-flow Doppler imaging) were utilized to interrogate the extracranial carotid arteries, the vertebral arteries and proximal subclavian arteries bilaterally. The degree of stenosis is determined by criteria similar to NASCET. FINDINGS: Right Side: 1. There is severe atherosclerotic plaque seen in the bifurcation/proximal ICA region. 2. The common carotid artery PSV proximally is 99 cm/s and distally a cm/s. 3. The proximal internal carotid artery velocities are 87 cm/s systolic and 21 cm/s diastolic. 4. The proximal external carotid artery PSV is 96 cm/s. 5. The vertebral artery shows antegrade flow. 6. The subclavian artery waveforms are normal. Left Side: 1. There is moderate atherosclerotic plaque seen in the bifurcation/proximal ICA region. 2. The common carotid artery PSV proximally is 92 cm/s and distally 83 cm/s. 3. The proximal internal carotid artery velocities are 84 cm/s systolic and 22 cm/s diastolic. 4. The proximal external carotid artery PSV is 74 cm/s. 5. The vertebral artery shows antegrade flow. 6. The subclavian artery waveforms are normal. US/US carotid duplex BI IMPRESSION: 1. RIGHT: Minimal, non-hemodynamically significant stenosis of the proximal right internal carotid artery corresponding to a 0-49% stenosis by velocity criteria. 2. LEFT: Minimal, non-hemodynamically significant stenosis of the proximal left internal carotid artery corresponding to a 0-49% stenosis by velocity criteria. 3. Antegrade flow seen via the bilateral vertebral arteries.
--- NOTE | 2022-10-29 14:03 | HM_ITS ---
* Total monitoring time about 5 days. * Underlying rhythm is sinus with intermittent atrial fibrillation. * Atrial fibrillation burden is 32%. * While in atrial fibrillation, controlled rates as well as evidence of rapid rates. As much as 143/Min. * Short runs of NSVT, longest 4 beats. Cannot exclude aberrant conduction. * Occasional supraventricular ectopy. Reinholds of about 2%. * No significant pauses or AV blocks. * Patient markers used in association with sinus rhythm and atrial fibrillation. * Lightheadedness in diary correlates with sinus rhythm as well as atrial fibrillation. MTDD
--- NOTE | 2022-10-29 14:03 | CA_ITS ---
Transthoracic Echocardiogram Patient (Last, First, Middle): Bill Hodge D Gender: Male Date of : 1935 Age: 87 Procedure Date: 10/29/2022 Procedure Type: Transthoracic Echocardiogram Location: OP Height: 177.8 cm Weight: 69.85 kg BSA: 1.87 m2 Heart Rate: 53 bpm BP: 120 / 60 mmHg Lead Process Engineer: TAMARA Referring MD: Mateo Prado MD Asic Verification Engineer: Mateo Prado MD Symptoms: I77.89 - Other specified disorders of arteries and arterioles Study Quality: Adequate ECG Rhythm: Bradycardia w frequent PAC Conclusions: - 1. Normal LV systolic function with normal filling pattern 2. Mildly dilated left atrium 3. Mild aortic regurgitation 4. Xine-sf-iqmgedcw mitral regurgitation 5. Normal RV systolic pressure 6. Mildly dilated ascending aorta at 4.1 cm 7. No gross pericardial effusion Findings Left Ventricle Normal left ventricular size, thickness, and systolic function. The visually estimated ejection fraction is between 55-60%. Spectral Doppler is indicative of a normal filling pattern. Peak GLS is -18.1%, within normal limits Right Ventricle Normal right ventricular cavity size and systolic function. Atria The left atrium is mildly dilated. There is no evidence of interatrial shunt. The right atrium is normal in size. Aortic Valve There is mild thickening of the aortic valve. There is no aortic valve stenosis. There is mild aortic valve regurgitation. Mitral Valve There is mild anterior and posterior mitral leaflet thickening. There is mild to moderate mitral valve regurgitation. There is no mitral valve stenosis. Pulmonic Valve The pulmonic valve is likely normal. There is trace pulmonic valve regurgitation. Tricuspid Valve Normal tricuspid valve structure. There is mild tricuspid valve regurgitation. The right ventricular systolic pressure is normal. The right ventricular systolic pressure is 21 mmHg. Normal right atrial pressure. There is no evidence of pulmonary hypertension. Great Vessels The pulmonary artery was not well visualized. There is mild dilatation of the ascending aorta measuring 4.10 cm. Venous The inferior vena cava is normal in size and collapses greater than 50% with inspiration. Pericardium/Pleural There is no evidence of pericardial effusion. Measurements 2D Linear Measurements IVSd: 1.08 0.6-0.9/0.6-1.0 cm LVIDd: 4.48 3.9-5.3/4.2-5.9 cm LVIDd Index: 2.40 2.4-3.2/2.2-3.1 cm/m2 LVIDs: 3.32 2.0-3.6 cm LVPWd: 0.83 0.7-1.1 cm Ao Root: 3.90 2.1-3.5 cm LA Diam: 3.70 2.7-3.8/3.0-4.0 cm LAIDs Index: 1.98 1.5-2.3 cm/m2 LV Mass: 177.97 67-162/88-224 g LV Mass Index: 95.17 43-95/49-115 g/m2 LVOT Diam: 2.20 3.0+(-)1.3 cm Mitral Valve MV Pk E: 0.81 MV PK A: 0.58 MV Decel Time: 256.00 E/A: 1.40 E'Lateral: 9.14 E'Medial: 7.40 E/E' Med: 10.90 E/E' Lat: 8.80 PHT: 75.00 MVA PHT: 2.93 Decel Rooks: 3.15 MR Vol - PW Dopp: 21.90 MR VTI: 2.19 MR ERO: 10.00 MR Alias Ciro: 0.39 MR RAD: 0.50 Aortic Valve AoV Pk Ciro: 1.42 AoV Mn Ciro: 1.02 AoV VTI: 0.34 AoV Pk Grad: 8.00 Aov Mn Grad: 5.00 BENNY Cont.VTI: 2.28 AI Pk Ciro: 3.60 AI Rooks: 1.95 LVOT LVOT Pk Ciro: 0.96 LVOT Mn Ciro: 0.61 LVOT VTI: 0.20 LVOT Pk Grad: 4.00 LVOT Mn Grad: 2.00 LVOT Diam: 2.20 LVOT Area: 3.80 Diastolic Function MV Pk E: 0.81 MV Pk A: 0.58 E/A: 1.40 E'Medial: 7.40 E/E' Med: 10.90 E' Laterial: 9.14 E/E' Lat: 8.80 Right Ventricle TAPSE (mm): 18.90 TVS' Ciro: 13.80 Tricuspid Valve TR Pk Ciro: 2.14 TR Pk Grad: 18.00 RA Press: 3.00 RVSP: 21.00 Great Vessels Aorta Ao Root-2D: 3.90 2.0-3.7 cm Sinus of Valsalva: 3.90 2.0-3.[address] Ridge: 3.00 1.7-3.4 cm Ao Asc: 4.10 2.1-3.4 cm Pulmonary Veins Pulm Vein S/D 1.00 Pulmonary Valve PV Pk Ciro: 0.76 Peak PV Grad: 2.00 Updated in Other Vendor System with Status of Final Mateo Prado MD electronically signed on 10/29/2022 3:14:36 PM with status of Final
== END ==
LOC: HO.CARD 14:00
PROVIDERS: PCP Internal Medicine; Visit Provider Internal Medicine Cardiovascular Disease
DX: R42 Dizziness and giddiness (principal); I77.89 Other specified disorders of arteries and arterioles; I48.0 Paroxysmal atrial fibrillation
CPT/HCPCS: 93242; 93306; 93356; 93880

== ENCOUNTER → 2022-11-24 14:43 | Outpatient (BNVA) | payer MEDICARE, SELFPAY | PROVIDERS: PCP Internal Medicine; Referring Provider Internal Medicine; Visit Provider Internal Medicine Cardiovascular Disease | DX: R42 Dizziness and giddiness (principal); I95.9 Hypotension, unspecified; I48.0 Paroxysmal atrial fibrillation; Z79.01 Long term (current) use of anticoagulants | CPT/HCPCS: 93005; 99212 ==

== ENCOUNTER → 2023-02-25 10:02 | Outpatient (BNVA) | payer MEDICARE, SELFPAY | PROVIDERS: PCP Internal Medicine; Referring Provider Internal Medicine; Visit Provider Internal Medicine Cardiovascular Disease | DX: I48.91 Unspecified atrial fibrillation (principal) | CPT/HCPCS: 93005; 99211 ==

== ENCOUNTER 2023-05-27 09:48 | Outpatient (AMB) | payer MEDICARE, SELFPAY ==
[2023-05-27 09:58] VITALS: BP 104/62; PULSE 63; BMI 20.9
--- NOTE | 2023-05-27 09:58 | A.OFFVIS_ITS ---
Intake Vital Signs 05/27/23 09:58 Height 5 ft 10 in Weight 145 lb 8.081 oz BMI 20.9 BP 104/62 Blood Pressure Location Lt brachial Position Sitting Pulse 63 Intake Visit Reasons: 6 mth f/up Intake Note: 6 month follow-up with ekg feeling good Clothes Drier Assembler Required: No Allergies novacain Allergy (Unknown, Uncoded 10/14/22 09:33) syncope Medication List - Last Reconciled 05/27/23 by Mateo Prado MD alendronate 70 mg PO QWEEK calcium carbonate (Calcium) 600 mg PO BID desoximetasone 0.25% appl topical BID dronedarone (Multaq) 400 mg PO BID metronidazole 0.75% appl topical BID PRN midodrine 5 mg PO TID multivitamin 1 tab PO DAILY rivaroxaban (Xarelto) 20 mg PO QPM 90 days vitamins A,C,Q-udiz-jncusp 4,296 mcg-226 mg-90 mg (PreserVision AREDS) 1 cap PO BID HPI HPI Comments History of Present Illness Details Bill comes for follow-up. He continues to have symptoms of dizziness/lightheadedness. Has had extensive workup including with Neurology. No obvious etiology has been found including no significant bradycardia orthostatic hypertension now. No recurrent atrial fibrillation. Patient however remains extremely functional and has no symptoms with exertion. Denies any exertional chest pain or shortness of breath. Blood pressure noted to be mostly elevated with systolic blood pressure in the range of 150 and above. He denies any orthopnea, PND, leg edema. FOR[facility]LY [facility] Medical History Osteopenia Enlarged thoracic aorta Paroxysmal atrial fibrillation Surgical History Hx of prostate biopsy Hx of cataract surgery Hx of hernia repair Hx of appendectomy Hx of basal cell carcinoma excision Hx of colonoscopy Family History Father Throat cancer Mother Parkinson disease Social History Alcohol intake: never Patient Tobacco Use Status: Former Tobacco user Quit Date: 40 yrs ago service: Yes Current occupational status: retired Review of Systems Const Denies chills, Denies fatigue, Denies fever(s), Denies frequent falls, Denies weakness, Denies weight gain and Denies weight loss ENT Denies dizziness Card Denies chest pain, Denies leg edema, Denies lightheadedness, Denies palpitations, Denies dyspnea, Denies dyspnea on exertion, Denies orthopnea and Denies other (loss of consciousness) Resp Denies cough, Denies dyspnea and Denies dyspnea on exertion GI Denies hematochezia and Denies change in stool character Musc Denies abnormal gait, Denies muscle weakness, Denies numbness, Denies radiating pain into limb and Denies tingling Neuro Denies abnormal gait, Denies dizziness, Denies frequent falls, Denies numbness, Denies tingling and Denies weakness Endo Denies fatigue and Denies palpitations Physical Exam Vital Signs: Last Vital Signs Pulse 63 05/27/23 09:58 BP 104/62 05/27/23 09:58 BMI result Body Mass Index 20.9 Const General: healthy appearing (Except for a thin build, and underweight.), com fortable, no acute distress, alert and awake Orientation/consciousness: patient oriented x3 HEENT Head: Yes normal to inspection General nose exam: No nasal polyps present, No nasal discharge present and Other nasal findings present (Has mild nasal congestion on both sides) Face and sinus: Yes sinuses nontender Mouth: oropharynx normal Throat: Yes posterior oropharynx normal Eyes General: appearance normal, both eyes and all related structures Neck Neck: Yes normal visual inspection, Yes no lymphadenopathy, Yes trachea midline and Yes no JVD Thyroid: Thyroid normal Chest Chest palpation & inspection: normal inspection of the chest, normal palpation of entire chest wall and no tenderness Resp Other: Percussion note resonant, has good equal breath sounds on both sides. There are NO inspiratory crepitations over basilar areas, AND NO WHEEZES . Cardio Palpation: normal PMI Rate: regular rate Rhythm: regular rhythm Heart sounds: no gallops and no murmurs Peripheral pulses: Peripheral pulses 2+ throughout GI Palpation (GI): Soft to palpation, nontender, No hepatosplenomegaly present and no masses Auscultation: normal bowel sounds Back/Spine/Pelvis Thoracic/Lumbar Spine: thoracic and lumbar spine normal to inspection Skin General skin exam: no rashes or lesions noted Neuro General: patient oriented x3 and no focal motor deficits Cranial nerves: Yes CN's II-XII intact bilaterally Extrem General: Yes normal to inspection, Yes no clubbing, cyanosis or edema and Yes no calf tenderness Psych Appearance: grossly normal and well kempt Speech and movement: Normal speech and movement present Office Procedures EKG Details: EKG shows normal sinus rhythm with normal EKG [id number], Complete Assessment & Plan Assessment & Plan (1) Paroxysmal atrial fibrillation: Comment: BEING TR CONTROLLED WITH THE LOW DOES BETA EUNICE ALSO HE IS ON ANTICOAGULATION. Code(s): I48.0 - Paroxysmal atrial fibrillation Plan: Patient with symptomatic paroxysmal atrial flutter which is now suppressed on Multaq therapy. Continue the same. Has done well with rhythm control approach will continue pursue rhythm control approach. Continue Multaq therapy. Con tinue full oral anticoagulation, currently on Eliquis 5 mg b.i.d.. Quarterly renal function test should be pursued. Advise renal function today to adjust dose of Eliquis if need be (2) Enlarged thoracic aorta: Comment: 3.9 cm Code(s): I77.89 - Other specified disorders of arteries and arterioles Plan: Mildly enlarged thoracic aorta. Doing well from that perspective. Continue blood pressure control. Blood pressure is elevated, see below. Follow-up echocardiogram 6 months time. No interventions required at this point time. Advised to avoid sudden strenuous isometric exercise. Advised to maintain activity level as tolerated otherwise. (3) Low blood pressure: Code(s): I95.9 - Hypotension, unspecified Plan: Patient with prior low blood pressure and orthostasis, currently blood pressure is mostly on the elevated side. Will reduce midodrine to 2.5 mg t.i.d. to avoid significant hypertension. Advised to maintain adequate oral hydration. Advised to continue monitor blood pressure at home maintain a log. Will follow up in the clinic in 3 months for EKG in 6 months with me. Thank you for allowing me to partake in his care Orders: Orders Basic Metabolic Panel Today I48.0 - Paroxysmal atrial fibrillation Medications: Changed From midodrine 5 mg PO TID 90 tabs 2RF To midodrine 2.5 mg (1/2 x 5 mg) PO TID 90 tabs 2RF From multivitamin 1 tab PO DAILY To multivitamin 0.5 tabs PO DAILY Coding Level of Care Code Est Pt Level 4 (54035) Diagnoses Paroxysmal atrial fibrillation I48.0 Enlarged thoracic aorta I77.89 Low blood pressure I95.9 CPT Codes EKG - CPT: [id number], Complete ([id number])
== END 2023-05-27 10:19 | disposition home or self-care (01) ==
PROVIDERS: PCP Internal Medicine; Referring Provider Internal Medicine; Visit Provider Internal Medicine Cardiovascular Disease
DX: I48.0 Paroxysmal atrial fibrillation (principal); I77.89 Other specified disorders of arteries and arterioles; I95.9 Hypotension, unspecified
CPT/HCPCS: 93010; 99214

== ENCOUNTER 2023-05-27 09:48 | Outpatient (REF) | payer MEDICARE, SELFPAY ==
[2023-05-27 11:33] LABS: Anion Gap 11 (12-20); Blood Urea Nitrogen 26 mg/dL (9-16); Calcium 9.5 mg/dL (8.4-10.2); Carbon Dioxide 30 mmol/L (22-29); Chloride 101 mmol/L (96-108); Estimated Glomerular Filt Rate 49; Glucose Random 71 mg/dL (60-115); Potassium 4.7 mmol/L (3.3-5.1); Sodium 137 mmol/L (135-145)
== END 2023-05-27 09:49 | disposition home or self-care (01) ==
LOC: HO.LAB 09:48
PROVIDERS: PCP Internal Medicine; Referring Provider Internal Medicine; Visit Provider Internal Medicine Cardiovascular Disease
DX: I48.0 Paroxysmal atrial fibrillation (principal)
CPT/HCPCS: 36415; 80048; 93005; 99212

== ENCOUNTER → 2023-08-26 08:54 | Outpatient (BNVA) | payer MEDICARE, SELFPAY | PROVIDERS: PCP Internal Medicine; Visit Provider Internal Medicine Cardiovascular Disease ==

== ENCOUNTER → 2023-11-22 10:01 | Outpatient (REF) | payer MEDICARE, SELFPAY ==
--- NOTE | 2023-11-22 10:04 | CA_ITS ---
Transthoracic Echocardiogram Patient (Last, First, Middle): Bill Hodge D Gender: Male Date of : 1935 Age: 88 Procedure Date: 11/22/2023 Procedure Type: Transthoracic Echocardiogram Location: OP Height: 177.8 cm Weight: 68.95 kg BSA: 1.86 m2 Heart Rate: 56 bpm BP: 130 / 65 mmHg Manager Material: SHAMEKA Referring MD: Mateo Prado MD Loading Unit Operator: Mateo Prado MD Symptoms: I77.89 - Other specified disorders of arteries and arterioles Study Quality: Adequate ECG Rhythm: Bradycardia Conclusions: - 1. Normal LV ejection fraction of 60 65% with grade 1 diastolic dysfunction 2. Mild aortic and mitral regurgitation 3. Normal RV systolic pressure 4. Mildly dilated ascending aorta at 4.2 cm 5. No pericardial effusion Findings Left Ventricle Normal left ventricular size, thickness, and systolic function. The visually estimated ejection fraction is between 60-65%. Spectral Doppler is indicative of an impaired relaxation filling pattern. E/E prime ratio is <8, consistent with normal filling pressures. Evidence suggests grade I (mild) diastolic dysfunction. Peak GLS is -21.0%, within normal limits. Right Ventricle Normal right ventricular cavity size and systolic function. Atria The left atrium is likely dilated. There is no evidence of interatrial shunt. The right atrium is normal in size. Aortic Valve There is mild calcification of the aortic valve. There is no aortic valve stenosis. There is mild aortic valve regurgitation. Mitral Valve There is mild anterior and posterior mitral leaflet thickening. There is mild mitral annular calcification. There is mild mitral valve regurgitation. There is no mitral valve stenosis. Pulmonic Valve The pulmonic valve is likely normal. Tricuspid Valve Normal tricuspid valve structure. There is trace tricuspid valve regurgitation. The right ventricular systolic pressure is normal. The right ventricular systolic pressure is 13 mmHg. Normal right atrial pressure. There is no evidence of pulmonary hypertension. Great Vessels The pulmonary artery was not well visualized. There is mild dilatation of the ascending aorta measuring 4.20 cm. Venous The inferior vena cava is normal in size and collapses greater than 50% with inspiration. Pericardium/Pleural There is no evidence of pericardial effusion. Prior Study Comparison No significant change compared to prior study dated: 10/29/2022. Measurements 2D Linear Measurements IVSd: 0.86 0.6-0.9/0.6-1.0 cm LVIDd: 4.48 3.9-5.3/4.2-5.9 cm LVIDd Index: 2.41 2.4-3.2/2.2-3.1 cm/m2 LVIDs: 2.58 2.0-3.6 cm LVPWd: 0.83 0.7-1.1 cm LA Diam: 3.50 2.7-3.8/3.0-4.0 cm LAIDs Index: 1.88 1.5-2.3 cm/m2 LV Mass: 149.58 67-162/88-224 g LV Mass Index: 80.42 43-95/49-115 g/m2 LVOT Diam: 2.10 3.0+(-)1.3 cm 2D Systolic Function EF 4C: 60.70 >55% EF 2C: 62.20 >55% EF BiP: 62.40 >55% Mitral Valve MV Pk E: 0.55 MV PK A: 0.80 MV Decel Time: 280.00 E/A: 0.70 E'Lateral: 6.53 E'Medial: 6.64 E/E' Med: 8.30 E/E' Lat: 8.40 PHT: 82.00 MVA PHT: 2.68 Decel [place]ou: 1.96 Aortic Valve AoV Pk Ciro: 1.51 AoV Mn Ciro: 1.02 AoV VTI: 0.31 AoV Pk Grad: 9.00 Aov Mn Grad: 5.00 BENNY Cont.VTI: 2.63 AI Pk Ciro: 3.15 AI [place]ou: 1.32 LVOT LVOT Pk Ciro: 1.04 LVOT Mn Ciro: 0.75 LVOT VTI: 0.23 LVOT Pk Grad: 4.00 LVOT Mn Grad: 3.00 LVOT Diam: 2.10 LVOT Area: 3.46 Diastolic Function MV Pk E: 0.55 MV Pk A: 0.80 E/A: 0.70 E'Medial: 6.64 E/E' Med: 8.30 E' Laterial: 6.53 E/E' Lat: 8.40 Right Ventricle TAPSE (mm): 24.30 TVS' Ciro: 13.60 Tricuspid Valve TR Pk Ciro: 1.56 TR Pk Grad: 10.00 RA Press: 3.00 RVSP: 13.00 Great Vessels Aorta Sinus of Valsalva: 4.00 2.0-3.5 cm Ao Asc: 4.20 2.1-3.4 cm Ao Arch: 2.90 Pulmonary Valve PV Pk Ciro: 0.60 Peak PV Grad: 1.00 Updated in Other Vendor System with Status of Final Mateo Prado MD electronically signed on 11/22/2023 4:33:07 PM with status of Final
== END ==
LOC: HO.CARD 10:01
PROVIDERS: PCP Internal Medicine; Visit Provider Internal Medicine Cardiovascular Disease
DX: I77.89 Other specified disorders of arteries and arterioles (principal)
CPT/HCPCS: 93306; 93356

== ENCOUNTER → 2023-11-22 10:04 | Outpatient (BNV) | payer MEDICARE, SELFPAY | PROVIDERS: PCP Internal Medicine; Visit Provider Internal Medicine Cardiovascular Disease | DX: I35.1 Nonrheumatic aortic (valve) insufficiency (principal); I34.81 Nonrheumatic mitral (valve) annulus calcification | CPT/HCPCS: 93306; 93356 ==

== ENCOUNTER 2023-11-25 13:45 | Outpatient (AMB) | payer MEDICARE, SELFPAY ==
[2023-11-25 13:51] VITALS: BP 118/68; PULSE 54; BMI 21.2
--- NOTE | 2023-11-25 13:51 | A.OFFVIS_ITS ---
Intake Vital Signs 11/25/23 13:51 Height 5 ft 10 in Weight 147 lb 11.355 oz BMI 21.2 BP 118/68 Blood Pressure Location Lt brachial Position Sitting Pulse 54 Intake Visit Reasons: 6M Intake Note: 6 month follow-up with ekg feeing the same with the lightheadedness at times Copy Operator Required: No Allergies novacain Allergy (Unknown, Uncoded 10/14/22 09:33) syncope Medication List - Last Reconciled 11/25/23 by Mateo Prado MD alendronate 70 mg PO QWEEK calcium carbonate (Calcium) 600 mg PO BID desoximetasone 0.25% appl topical BID dronedarone (Multaq) 400 mg PO BID 30 days metronidazole 0.75% appl topical BID PRN midodrine 2.5 mg PO BID multivitamin 0.5 tabs PO DAILY rivaroxaban (Xarelto) 20 mg PO QPM 90 days vitamins A,C,U-rqyq-iqsjkv 4,296 mcg-226 mg-90 mg (PreserVision AREDS) 1 cap PO BID HPI HPI Comments History of Present Illness Details Bill comes for follow-up. Continues to have symptoms of lightheadedness. All his workup has been negative so far. Recent echocardiogram shows normal LV ejection fraction with mild ascending aortic enlargement with mild aortic and mild mitral regurgitation. His blood pressure recordings at home with these episodes are usually on the high side. He does not have any significant low blood pressures anymore. Maintains adequate hydration. He says some of these episodes associated with his machine reading i rregular heartbeat but if he checks it a minute later it does not. He has not sure whether he is in AFib. [facility] Medical History Osteopenia Enlarged thoracic aorta Paroxysmal atrial fibrillation Surgical History Hx of prostate biopsy Hx of cataract surgery Hx of hernia repair Hx of appendectomy Hx of basal cell carcinoma excision Hx of colonoscopy Family History Father Throat cancer Mother Parkinson disease Social History Alcohol intake: never Patient Tobacco Use Status: Former Tobacco user Quit Date: 40 yrs ago service: Yes Current occupational status: retired Review of Systems Const Denies chills, Denies fatigue, Denies fever(s), Denies frequent falls, Denies weakness, Denies weight gain and Denies weight loss ENT Denies dizziness Card Denies chest pain, Denies leg edema, Denies lightheadedness, Denies palpitations, Denies dyspnea, Denies dyspnea on exertion, Denies orthopnea and Denies other (loss of consciousness) Resp Denies cough, Denies dyspnea and Denies dyspnea on exertion GI Denies hematochezia and Denies change in stool character Musc Denies abnormal gait, Denies muscle weakness, Denies numbness, Denies radiating pain into limb and Denies tingling Neuro Denies abnormal gait, Denies dizziness, Denies frequent falls, Denies numbness, Denies tingling and Denies weakness Endo Denies fatigue and Denies palpitations Physical Exam Vital Signs: Last Vital Signs Pulse 54 11/25/23 13:51 BP 118/68 11/25/23 13:51 BMI result Body Mass Index 21.2 Const General: healthy appearing (Except for a thin build, and underweight.), comfortable, no acute distress, alert and awake Orientation/consciousness: patient oriented x3 HEENT Head: Yes normal to inspection General nose exam: No nasal polyps present, No nasal discharge present and Other nasal findings present (Has mild nasal congestion on both sides) Face and sinus: Yes sinuses nontender Mouth: oropharynx normal Throat: Yes posterior oropharynx normal Eyes General: appearance normal, both eyes and all related structures Neck Neck: Yes normal visual inspection, Yes no lymphadenopathy, Yes trachea midline and Yes no JVD Thyroid: Thyroid normal Chest Chest palpation & inspection: normal inspection of the chest, normal palpation of entire chest wall and no tenderness Resp Other: Percussion note resonant, has good equal breath sounds on both sides. There are NO inspiratory crepitations over basilar areas, AND NO WHEEZES . Cardio Palpation: normal PMI Rate: regular rate Rhythm: regular rhythm Heart sounds: no gallops and no murmurs Peripheral pulses: Peripheral pulses 2+ throughout GI Palpation (GI): Soft to palpation, nontender, No hepatosplenomegaly present and no masses Auscultation: normal bowel sounds Back/Spine/Pelvis Thoracic/Lumbar Spine: thoracic and lumbar spine normal to inspection Skin General skin exam: no rashes or lesions noted Neuro General: patient oriented x3 and no focal motor deficits Cranial nerves: Yes CN's II-XII intact bilaterally Extrem General: Yes normal to inspection, Yes no clubbing, cyanosis or edema and Yes no calf tenderness Psych Appearance: grossly normal and well kempt Speech and movement: Normal speech and movement present Office Procedures EKG Details: EKG shows sinus bradycardia with first-degree AV block otherwise normal EKG with normal axis and normal intervals [id number], Complete Assessment & Plan Assessment & Plan (1) Paroxysmal atrial fibrillation: Comment: BEING TR CONTROLLED WITH THE LOW DOES BETA EUNICE ALSO HE IS ON ANTICOAGULATION. Code(s): I48.0 - Paroxysmal atrial fibrillation Plan: Paroxysmal atrial fibrillation which is currently suppressed on Multaq therapy. I do not think he is any more significant burden of atrial fibrillation. Advise him to consider investing in a smart phone based EKG device. Continue Multaq. EKGs every 3 months. Continue full oral anticoagulation, currently on Xarelto 20 mg daily. Quarterly renal function test should be pursued. I do not think atrial fibrillation explains his symptoms of lightheadedness at this point in time. (2) Enlarged thoracic aorta: Comment: 3.9 cm Code(s): I77.89 - Other specified disorders of arteries and arterioles Plan: Mild thoracic aortic enlargement. No interventions required at this point time. Continue monitor by echocardiogram on annual basis. Continue aggressive blood pressure control. His blood pressures now are on the higher side. Will reduce midodrine to 2.5 mg daily. Advised to maintain adequate hydration. Orthostatic precautions were discussed. (3) Lightheadedness: Code(s): R42 - Dizziness and giddiness Plan: Longstanding history of lightheadedness without any obvious cause for it. He has not been atrial fibrillation sometimes when he has episode of lightheadedness and his blood pressure now is on the higher side. Will reduce midodrine to 2.5 mg daily. Advised to continue monitor blood pressure at home maintain a log. Follow up in the clinic in 3 months for EKG and in 6 months with me. Thank you for allowing me to partake in his care Medications: Changed From midodrine Take midodrine only before breakfast and lunch. Avoid before supper/evening 2.5 mg PO BID 60 tabs 5RF To midodrine Take midodrine only before breakfast and lunch. Avoid before supper/evening 2.5 mg PO DAILY 60 tabs 5RF Coding Level of Care Code Est Pt Level 4 (04149) Diagnoses Paroxysmal atrial fibrillation I48.0 Enlarged thoracic aorta I77.89 Lightheadedness R42 CPT Codes EKG - CPT: 03203-[id number], Complete ([id number])
== END 2023-11-25 14:16 | disposition home or self-care (01) ==
PROVIDERS: PCP Internal Medicine; Visit Provider Internal Medicine Cardiovascular Disease
DX: I48.0 Paroxysmal atrial fibrillation (principal); I77.89 Other specified disorders of arteries and arterioles; R42 Dizziness and giddiness
CPT/HCPCS: 93010; 99214

== ENCOUNTER → 2023-11-25 13:45 | Outpatient (BNVA) | payer MEDICARE, SELFPAY | PROVIDERS: PCP Internal Medicine; Visit Provider Internal Medicine Cardiovascular Disease | DX: I48.0 Paroxysmal atrial fibrillation (principal); I77.89 Other specified disorders of arteries and arterioles; R42 Dizziness and giddiness; Z79.899 Other long term (current) drug therapy | CPT/HCPCS: 93005; 99212 ==

== ENCOUNTER 2024-02-24 09:47 | Outpatient (REF) | payer MEDICARE, SELFPAY ==
[2024-02-24 11:44] LABS: Hematocrit 41.1 % (42.0-52.0); Hemoglobin 13.9 g/dl (14.0-18.0); Mean Corpuscular HGB Conc 33.8 g/dl (31.0-36.0); Mean Corpuscular Hemoglobin 30.7 pg (27.0-33.0); Mean Corpuscular Volume 90.7 fL (80.0-98.0); Mean Platelet Volume 10.6 fL (9.4-12.4); Platelet Count 198 X10*3/uL (160-400); Red Blood Count 4.53 X10*6/uL (4.60-5.80); Red Cell Distribution Width 12.7 % (11.0-16.0); White Blood Count 5.9 X10*3/uL (4.8-10.8)
[2024-02-24 12:02] LABS: Anion Gap 10 (12-20); Blood Urea Nitrogen 25 mg/dL (9-16); Calcium 9.8 mg/dL (8.4-10.2); Carbon Dioxide 30 mmol/L (22-29); Chloride 100 mmol/L (96-108); Estimated Glomerular Filt Rate 46; Glucose Random 98 mg/dL (60-115); Potassium 4.3 mmol/L (3.3-5.1); Sodium 136 mmol/L (135-145)
== END 2024-02-24 09:48 | disposition home or self-care (01) ==
LOC: HO.LAB 09:47
PROVIDERS: PCP Internal Medicine; Visit Provider Internal Medicine Cardiovascular Disease
DX: I48.19 Other persistent atrial fibrillation (principal)
CPT/HCPCS: 36415; 80048; 85027; 93005; 99212

== ENCOUNTER 2024-02-24 10:27 | Outpatient (AMB) | payer MEDICARE, SELFPAY ==
--- NOTE | 2024-02-24 12:28 | MHC.OFFVIS ---
Intake Visit Reasons: fu abn ekg Allergies midodrine Allergy (Intermediate, Verified 12/21/23 18:23) Itchy red rash head to toe novacain Allergy (Unknown, Uncoded 10/14/22 09:33) syncope HPI Comments Details: Bill comes for early EKG, he was scheduled for EKG yesterday. However says last night he developed symptoms of atrial fibrillation which happens intermittently for him but the symptoms usually go away in couple of hours. The symptoms then go away in the night he continued to have symptoms of atrial fibrillation this morning he was still in atrial fibrillation and therefore decided come to the Emergency. He said he feels more lightheaded although also has increased shortness of breath with exertion and also feels heaviness/palpitation in his chest. He is currently taking Multaq 400 mg b.i.d. and has been religiously taking his oral anticoagulation therapy with Eliquis. Denies any syncopal episode. Denies any orthopnea, PND, leg edema. REPLACED BY [facility] Medical History Osteopenia Enlarged thoracic aorta Paroxysmal atrial fibrillation Surgical History Hx of prostate biopsy Hx of cataract surgery Hx of hernia repair Hx of appendectomy Hx of basal cell carcinoma excision Hx of colonoscopy Family History Father Throat cancer Mother Parkinson disease Social History Alcohol intake: never Patient Tobacco Use Status: Former Tobacco user service: Yes Current occupational status: retired Review of Systems Const Denies chills, Denies fatigue, Denies fever(s), Denies frequent falls, Denies weakness, Denies weight gain and Denies weight loss ENT Denies dizziness Card Denies chest pain, Denies leg edema, Denies lightheadedness, Denies palpitations, Denies dyspnea, Denies dyspnea on exertion, Denies orthopnea and Denies other (loss of consciousness) Resp Denies cough, Denies dyspnea and Denies dyspnea on exertion GI Denies hematochezia and Denies change in stool character Musc Denies abnormal gait, Denies muscle weakness, Denies numbness, Denies radiating pain into limb and Denies tingling Neuro Denies abnormal gait, Denies dizziness, Denies frequent falls, Denies numbness, Denies tingling and Denies weakness Endo Denies fatigue and Denies palpitations Physical Exam Const General: healthy appearing (Except for a thin build, and underweight.), comfortable, no acute distress, alert and awake Orientation/consciousness: patient oriented x3 HEENT Head: Yes normal to inspection General nose exam: No nasal polyps present, No nasal discharge present and Other nasal findings present (Has mild nasal congestion on both sides) Face and sinus: Yes sinuses nontender Mouth: oropharynx normal Throat: Yes posterior oropharynx normal Eyes General: appearance normal, both eyes and all related structures Neck Neck: Yes normal visual inspection, Yes no lymphadenopathy, Yes trachea midline and Yes no JVD Thyroid: Thyroid normal Chest Chest palpation & inspection: normal inspection of the chest, normal palpation of entire chest wall and no tenderness Resp Other: Percussion note resonant, has good equal breath sounds on both sides. There are NO inspiratory crepitations over basilar areas, AND NO WHEEZES . Cardio Palpation: normal PMI Rate: tachycardic Rhythm: abnormal rhythm regularly irregular Heart sounds: S1 normal heart sound present, S2 normal heart sound present, no gallops and no murmurs Peripheral pulses: Peripheral pulses 2+ throughout GI Palpation (GI): Soft to palpation, nontender, No hepatosplenomegaly present and no masses Auscultation: normal bowel sounds Back/Spine/Pelvis Thoracic/Lumbar Spine: thoracic and lumbar spine normal to inspection Skin General skin exam: no rashes or lesions noted Neuro General: patient oriented x3 and no focal motor deficits Cranial nerves: Yes CN's II-XII intact bilaterally Extrem General: Yes normal to inspection, Yes no clubbing, cyanosis or edema and Yes no calf tenderness Psych Appearance: grossly normal and well kempt Speech and movement: Normal speech and movement present Office Procedures EKG Details: EKG shows atrial fibrillation rapid ventricular response at 104 beats per minute [id number], Complete Assessment & Plan Assessment & Plan (1) Persistent atrial fibrillation: Code(s): I48.19 - Other persistent atrial fibrillation Category: Medical Plan: Recurrent and highly symptomatic persistent atrial fibrillation. In the past he has had self-limiting episodes of atrial fibrillation although this has been lasted for more than 12 hours. He is symptoms of shortness of breath and chest heaviness/flutter. Also complains of more lightheadedness although I think this is probably related to anxiety. Will start him on Cardizem 30 mg b.i.d. in addition to Multaq therapy to see if this would revert him back into normal sinus rhythm. If he does not revert to normal sinus rhythm will schedule him for synchronized cardioversion next Wednesday. Continue full oral anticoagulation Eliquis. If this strategy if he has would consider switching his antiarrhythmic drug therapy to Tikosyn, unfortunately can not take amiodarone therapy due to his interstitial lung disease. Blood pressure is well optimized at this point time. If he develops sudden symptoms of heart failure advised to seek emergency care. Follow up in the clinic in 4 weeks time, sooner p.r.n.. Thank you for allowing me to partake in his care Coding Level of Care Code Est Pt Level 4 (49823) Diagnoses Persistent atrial fibrillation I48.19 CPT Codes EKG - CPT: 97223-[id number], Complete ([id number])
== END 2024-02-24 10:30 | disposition home or self-care (01) ==
LOC: HO.HCS 10:27
PROVIDERS: PCP Internal Medicine; Visit Provider Internal Medicine Cardiovascular Disease
DX: I48.19 Other persistent atrial fibrillation (principal)
CPT/HCPCS: 93010; 99214

== ENCOUNTER 2024-03-30 20:43 | Inpatient (IN) | payer MEDICARE, SELFPAY ==
--- NOTE | ~2024-03-30 | CT_ITS ---
EXAMINATION: CT CHEST WITHOUT CONTRAST CLINICAL INFORMATION: Right middle lobe density. COMPARISON: CTA abdomen and pelvis dated 03/31/2024; CT examinations of the chest dated 03/06/2022 and 01/28/2022. TECHNIQUE: Multidetector volumetric CT imaging of the chest was done. Axial MIP volume rendering provided. Sagittal and coronal reformatted images were obtained. This CT examination was performed using dose optimization techniques as appropriate, variously including the following: *Automated exposure control *Adjustment of mA and/or kV according to patient size (this includes techniques or standardized protocols for targeted exams where dose is matched to indication/reason for exam; i.e. extremities or head) *Use of iterative reconstruction technique DLP: 240 mGy-cm FINDINGS: INSPECTOR SUBASSEMBLY: There is mild hyperinflation, with blunting of the posterior costophrenic angles. The lungs are grossly clear. LUNGS: There is biapical pleural and parenchymal scarring. There are biapical pleural calcifications, suggesting prior infection or asbestos exposure. There is bibasilar dependent hypoaeration. No nodule, mass, infiltrate or groundglass opacity is seen. There is no generalized increase in peripheral interlobular septal markings. There is no generalized small airway thickening. The central airways appear patent. MEDIASTINUM: The thyroid is unremarkable. The ascending thoracic aorta is ectatic, measuring 4.1 x 4.0 cm (3:35). No jorge luis thoracic aortic aneurysm is seen. There are moderate atherosclerotic calcifications of the great vessel origins and thoracic aorta. No sizable mediastinal or hilar lymphadenopathy is seen. CORONARY ARTERY CALCIFICATION: Moderately severe. PLEURA: There is a very small left effusion. No right pleural effusion is seen. No pleural mass or thickening. AXILLA: No lymphadenopathy. UPPER ABDOMEN: Unremarkable. OSSEOUS STRUCTURES: There is multi-level marked thoracic spondylosis, an appearance suggesting DISH (diffuse idiopathic skeletal hyperostosis). No acute or aggressive osseous finding is noted. CT/CT chest wo IV con IMPRESSION: 1. No pulmonary nodule, mass, infiltrate or groundglass opacity is seen. 2. There are biapical pleural calcifications, suggesting prior infection or asbestos exposure. 3. No thoracic lymphadenopathy is seen. There is a very small left pleural effusion. 4. There is ectasia of the ascending thoracic aorta, without jorge luis aneurysm formation. 5. There are moderately severe coronary artery atherosclerotic calcifications. 6. Skeletal findings suggest possible DISH. No acute or aggressive osseous abnormality is seen. Fleischner guidelines were followed.
--- NOTE | ~2024-03-30 | CT_ITS ---
STUDY PERFORMED: CTA ABDOMEN AND PELVIS WITHOUT AND WITH CONTRAST HISTORY: Diverticular bleed DESCRIPTION: Routine abdomen and pelvis CTA protocol with contrast was performed. 85 mL of Omnipaque 350 was administered. Precontrast, arterial phase, and delayed imaging was performed. DOSE LOWERING TECHNIQUES: This CT examination was performed using dose optimization techniques as appropriate, variously including the following: - Automated exposure control - Adjustment of mA and/or kV according to patient size (this includes techniques or standardized protocols for targeted exams where dose is matched to indication/reason for exam; i.e. extremities or head) - Use of iterative reconstruction technique DLP: 991 mGycm. COMPARISON: March 30, 2024 FINDINGS: Lung Bases: On the most superior cut within the right middle lobe there is a density adjacent to the right heart border measuring approximately 1.2 x 0.5 cm in size. This is adjacent to a few smaller noncalcified densities. This may represent a region of atelectasis or endobronchial disease however developing mass of other etiology cannot be excluded and CT of chest would be of help in further evaluation of the entire chest. No pleural or pericardial effusion. Coronary artery calcification is present. Liver, Gallbladder and Biliary Tree: The liver is normal in size, shape, and attenuation. No focal hepatic lesion or biliary ductal dilatation is present. Cholelithiasis is present without evidence of acute cholecystitis. Pancreas: Unremarkable. No abnormal mass or peripancreatic inflammatory changes seen. Spleen: Unremarkable. Adrenal Glands: Unremarkable. Kidneys and Ureters: There is a 6.4 x 3.9 cm cyst which does not require follow up seen within the right kidney. No significant left kidney abnormalities appreciated with either a small cyst or anginal myolipoma anterolaterally midpole not requiring follow-up... No hydronephrosis, hydroureter, or calculi seen. No perinephric stranding. Bladder: Unremarkable. Gastrointestinal Tract: No dilated loops of large or small bowel are evident. No free air or free fluid is seen. There is mild diverticular disease within the colon. On arterial phase there is noted to be a region of extravasation of contrast into the lumen of the mid descending colon. Abdominal Wall: No significant hernia is appreciated. Lymph Nodes: No lymphadenopathy appreciated. Vascular: Colonic bleed as described above descending colon. No abdominal aortic aneurysm. There is some mild aortoiliac calcified plaque seen. Portal vein is patent. Pelvic Viscera: Unremarkable. Osseous Structures: No suspicious destructive bony lesions identified. There is multilevel degenerative disc disease present. CT/CT gi bleed abd pel wo/w IVcon IMPRESSION: Descending colon bleed with active extravasation. Right middle lobe density for which CT of the chest is recommended.
--- NOTE | ~2024-03-30 | CT_ITS ---
EXAMINATION: CT ABDOMEN AND PELVIS WITHOUT CONTRAST CLINICAL INFORMATION: Abdominal pain, rectal bleeding COMPARISON: None available. TECHNIQUE: Multidetector volumetric imaging was performed from the superior aspect of the liver through the pubic symphysis. Sagittal and coronal reformatted images were obtained on the technologist's workstation. This CT examination was performed using dose optimization techniques as appropriate, variously including the following: *Automated exposure control *Adjustment of mA and/or kV according to patient size (this includes techniques or standardized protocols for targeted exams where dose is matched to indication/reason for exam; i.e. extremities or head) *Use of iterative reconstruction technique DLP: 425 mGy-cm FINDINGS: LUNG BASES: The visualized lung bases are unremarkable. LIVER, GALLBLADDER, AND BILIARY TREE: The liver is normal in size, shape, and attenuation. No focal hepatic lesion or biliary ductal dilatation is present. Multiple small calcified stones within the gallbladder. Gallbladder is decompressed without wall thickening or biliary ductal dilatation PANCREAS: Unremarkable. SPLEEN: Unremarkable. ADRENAL GLANDS: Unremarkable. KIDNEYS AND URETERS: The kidneys are normal in size, shape, and attenuation. No hydronephrosis, hydroureter, or calculi seen. No perinephric stranding. 2 adjacent simple fluid density cyst seen within the lower pole the right kidney, one parapelvic and one cortical. No follow-up indicated. BLADDER: Unremarkable. GASTROINTESTINAL TRACT: The small bowel are unremarkable. The appendix is unremarkable. Extensive diverticula seen throughout the colon without wall thickening or inflammatory stranding. There is moderate to large amount of stool in the proximal colon and rectum ABDOMINAL WALL: No significant hernia is appreciated. LYMPH NODES: Normal. VASCULAR: Aorta is normal in caliber. Scattered atherosclerotic wall calcifications PELVIC VISCERA: Prostate gland is enlarged. OSSEOUS STRUCTURES: Degenerative disc disease seen within the lumbar spine. CT/CT abdomen pelvis wo IV con IMPRESSION: 1. No acute process. 2. Extensive diverticulosis without acute diverticulitis. Moderate to large amount of stool in the proximal colon and rectum. 3. Cholelithiasis. Fleischner guidelines were followed.
[2024-03-30 20:52] VITALS: BP 124/57; PULSE 59; RESP 10; O2SAT 98
--- NOTE | 2024-03-30 20:55 | ECG_ITS ---
Test Reason : SYNCOPE Blood Pressure : / mmHG Vent. Rate : 058 BPM Atrial Rate : 058 BPM P-R Int : 198 ms QRS Dur : 070 ms QT Int : 430 ms P-R-T Axes : 004 007 050 degrees QTc Int : 422 ms Sinus bradycardia Otherwise normal ECG When compared with ECG of 30-AUG-2022 16:03, Sinus rhythm has replaced Atrial flutter Referred By: Qiana Huynh Electronically Signed By:ELSIE MARY MD
[2024-03-30 21:07] VITALS: BP 120/70; BP 127/54; PULSE 60; PULSE 64; RESP 16; TEMP 36.8; O2SAT 98; O2SAT 99; BMI 21.2
[2024-03-30 21:23] LABS: MANUAL DIFF FLAG NO
[2024-03-30 21:26] LABS: Basophils Percent Auto 0.4 % (0-2); Eosinophils Absolute Auto 0.2 X10*3/uL (0.0-0.4); Eosinophils Percent Auto 2.3 % (0-4); Hematocrit 29.5 % (42.0-52.0); Imm Gran Abs Auto 0.04 X10*3/uL (0.00-0.03); Imm Gran Pct Auto 0.5 % (0.0-0.4); Lymphocytes Absolute Auto 1.5 X10*3/uL (1.2-4.9); Lymphocytes Percent Auto 17.5 % (20-40); Mean Corpuscular HGB Conc 33.9 g/dl (31.0-36.0); Mean Corpuscular Hemoglobin 31.1 pg (27.0-33.0); Mean Corpuscular Volume 91.6 fL (80.0-98.0); Mean Platelet Volume 9.7 fL (9.4-12.4); Monocytes Absolute Auto 0.6 X10*3/uL (0.1-1.2); Monocytes Percent Auto 7.2 % (2-11); Neutrophils Percent Auto 72.1 % (45-73); Platelet Count 150 X10*3/uL (160-400); Red Blood Count 3.22 X10*6/uL (4.60-5.80); Red Cell Distribution Width 12.6 % (11.0-16.0); White Blood Count 8.3 X10*3/uL (4.8-10.8)
--- NOTE | 2024-03-30 21:34 | ED_ITS ---
HPI - GI Bleed General Chief complaint: GI Bleed Stated complaint: LOWER GI BLEED, SYNCOPE Time Seen by Provider: 03/30/24 20:58 History of Present Illness HPI Narrative: Patient is a 89-year-old male with a history of atrial fibrillation currently on Xarelto. Patient initially was noted to have a low blood pressure of 90/50. IV line was established IV fluid was given patient's blood pressure improved to 120/70. He noted an episode of bright red blood per rectum. Patient from home. Did take his Xarelto today at 18:00. No chest pain or diaphoresis. Positive generalized malaise. Related Data Home Medications ?Medication ?Instructions ?Recorded ?Confirmed alendronate 70 mg tablet 70 mg PO QWEEK 08/21/20 02/24/24 calcium carbonate (Calcium 600) 600 mg PO BID 05/23/21 02/24/24 desoximetasone 0.25 % topical cream appl topical BID 01/27/22 02/24/24 metronidazole 0.75 % topical cream appl topical BID PRN 01/27/22 02/24/24 vitamins A,C,C-vslx-tnhxba 4,296 1 cap PO BID 05/19/22 02/24/24 mcg-226 mg-90 mg capsule (PreserVision AREDS) multivitamin 0.5 tab PO DAILY 05/27/23 02/24/24 Previous Rx's ?Medication ?Instructions ?Recorded dronedarone 400 mg tablet (Multaq) 400 mg PO BID 30 days #60 tabs 01/11/24 rivaroxaban 20 mg tablet (Xarelto) 20 mg PO QPM 90 days #90 tabs 01/11/24 diltiazem HCl 30 mg tablet 30 mg PO BID #60 tabs 03/22/24 (Cardizem) Allergies Allergy/AdvReac Type Severity Reaction Status Date / Time midodrine Allergy Intermediate Itchy red Verified 03/30/24 21:16 rash head to toe metoprolol AdvReac Unknown Verified 03/30/24 21:16 novacain Allergy Unknown syncope Uncoded 03/30/24 21:16 Review of Systems 2 Review of Systems: Positive dizziness Positive bright red blood per rectum Yes all other systems are reviewed and are negative PMFSH Past Medical History Attestation statement: The following information was validated with the patient. Medical History Osteopenia Enlarged thoracic aorta Paroxysmal atrial fibrillation Surgical History Hx of prostate biopsy Hx of cataract surgery Hx of hernia repair Hx of appendectomy Hx of basal cell carcinoma excision Hx of colonoscopy Family History Family History Father Throat cancer Mother Parkinson disease Social History Social History Alcohol intake: never Patient Tobacco Use Status: Former Tobacco user Smoked in Last 30 Days: No Use of substances other than those prescribed or required for medical reasons: No Advance Directives: No Advance Directives Information Provided: No service: Yes Current occupational status: retired Physical Exam 2 Vital Signs: Vital Signs: Last Vital Signs Temp 98.2 F 03/30/24 21:07 Pulse 56 03/30/24 22:33 Resp 14 03/30/24 22:33 BP 101/57 L 03/30/24 22:33 Pulse Ox 96 03/30/24 22:33 O2 Del Method Room Air 03/30/24 22:33 BMI result Body Mass Index 21.2 Appearance: Alert. Oriented X3. No acute distress. Eyes: Pupils equal, round and reactive to light. ENT: Pharynx normal. Neck: Normal inspection. Neck supple. No lymph nodes noted. No crepitus CVS: Normal heart rate and rhythm. Pulses normal. Normal S1 and S2 Respiratory: No respiratory distress. Breath sounds normal. No Wheezing. No rales Abdomen: Soft and nontender. No rigidity. No distention. good BS x4 Skin: Skin warm and dry. Normal skin color. Normal skin turgor. Rectal exam positive for bright red blood Extremities: No lower extremity edema. Neurovascular intact to all extremities. No Lacerations. No Rash Neuro: Oriented X 3. No motor deficit. No sensory deficit. Moving all extermities. No slurred speech Medications Administered Discontinued Medications Generic Name Dose Route Start Last Admin Trade Name Freq PRN Reason Stop Dose Admin Sodium Chloride 500 mls @ 999 mls/hr 03/30/24 22:15 03/30/24 22:07 Ns IV 03/30/24 22:45 999 mls/hr .Q31M MARILY Administration Medical Decision Making Medical Decision Making MDM Narrative: History of atrial fibrillation on Xarelto reports bright red blood per rectum. Patient had an initial low blood pressure. Given IV fluids with good response. Will monitor very closely. Patient's blood was typed and screened. Will monitor very closely will require admission CT scan of the abdomen pelvis is pending. Patient's hemoglobin came back at 10. Baseline is about 12. Will monitor very carefully the actual number my actually be lower. Patient is on Xarelto is having bright red blood per rectum likely secondary to diverticular bleed. Patient's blood was typed and screened. Two large IV was started. Case discussed with hospitalist team. At this time did not feel patient warrants reversal of the Xarelto. But will need close monitoring. Differential Diagnosis Differential Diagnoses: The differential diagnosis associated with the presentation includes GI bleed upper versus lower Admission/Observation Consideration of admission/observation: Escalation of care including admission/observation considered Consult Healthcare Provider Management of the patient was discussed with: Hospitalist Lab Data [facility] Lab Attestation statement: I reviewed the patient's lab results. 03/30/24 21:17 03/30/24 21:17 Labs: Lab Results 03/30/24 03/30/24 Range/Units 21:17 21:51 WBC 8.3 (4.8-10.8) X10*3/uL RBC 3.22 L D (4.60-5.80) X10*6/uL Hgb 10.0 L D (14.0-18.0) g/dl Hct 29.5 L D (42.0-52.0) % MCV 91.6 (80.0-98.0) fL MCH 31.1 (27.0-33.0) pg MCHC 33.9 (31.0-36.0) g/dl RDW 12.6 (11.0-16.0) % Plt Count 150 L (160-400) X10*3/uL MPV 9.7 (9.4-12.4) fL Immature Gran % (Auto) 0.5 H (0.0-0.4) % Neut % (Auto) 72.1 (45-73) % Lymph % (Auto) 17.5 L (20-40) % [place] % (Auto) 7.2 (2-11) % Eos % (Auto) 2.3 (0-4) % Baso % (Auto) 0.4 (0-2) % Lymph # (Auto) 1.5 (1.2-4.9) X10*3/uL [place] # (Auto) 0.6 (0.1-1.2) X10*3/uL Eos # (Auto) 0.2 (0.0-0.4) X10*3/uL Baso # (Auto) 0.0 (0.0-0.2) X10*3/uL Abs Immat Gran (auto) 0.04 H (0.00-0.03) X10*3/uL Absolute Neuts (auto) 6.0 (2.0-8.3) x10*3/uL Absolute Nucleated RBC 0.000 (0.0-0.012) X10*3/uL Nucleated RBC % (auto) 0.0 (0.0-0.2) /100WBC PT 31.6 H (11.1-13.3) SEC INR 2.6 H (0.9-1.1) Sodium 139 (135-145) mmol/L Potassium 4.2 (3.3-5.1) mmol/L Chloride 107 (96-108) mmol/L Carbon Dioxide 23 (22-29) mmol/L Anion Gap 13 (12-20) BUN 27 H (9-16) mg/dL Creatinine 1.40 (0.5-1.4) mg/dL Estim Creat Clear Calc 34.8 Estimated GFR 48 Random Glucose 119 H (60-115) mg/dL Calcium 8.4 D (8.4-10.2) mg/dL Total Bilirubin 0.3 (0.0-1.0) mg/dL AST 15 (5-37) U/L ALT 14 (0-40) U/L Alkaline Phosphatase 35 L (39-117) U/L Total Protein 5.4 L (6.5-8.0) g/dL Albumin 3.5 (3.5-5.0) g/dL Stool Occult Blood POSITIVE (NEGATIVE) Blood Type A Negative Antibody Screen NEGATIVE Crossmatch See Detail Independent Interpretation I performed an independent interpretation of an: EKG (Sinus heart rate is 60 MT QRS QTC normal no acute ST segment elevation) Radiology Impression Discussion of test interpretation with radiology: I have reviewed the radiologist's reading. Independent Historian Clinical information obtained from an independent historian. History obtained from or confirmed by: Spouse External Record Review External record reviewed: Inpatient record Chronic Conditions History of atrial fibrillation Critical Care Time Critical Care Time Critical Care Time: Yes Total Critical Care Time: 40 Attestation: I have personally provided 40 minutes of critical care time exclusive of time spent on separately billable procedures. ?Time includes review of lab data, radiology results, discussion with consultants, and monitoring for potential decompensation. ?Interventions were performed as documented above Discharge Plan Discharge Clinical Impression: Acute GI bleeding Patient Disposition: Admitted As Inpatient Prescriptions: No Action Multaq 400 mg tablet 400 mg PO BID 30 Days Qty: 60 2RF Xarelto 20 mg tablet 20 mg PO QPM 90 Days Qty: 90 1RF diltiazem HCl [Cardizem] 30 mg tablet 30 mg PO BID Qty: 60 2RF calcium carbonate [Calcium 600] 600 mg calcium (1,500 mg) Tablet 600 mg PO BID alendronate 70 mg tablet 70 mg PO QWEEK desoximetasone 0.25 % cream topical BID metronidazole 0.75 % cream topical BID PRN PreserVision AREDS [id number],[id number] capsule 1 cap PO BID multivitamin Tablet 0.5 tab PO DAILY Print Language: Citizen [place]
[2024-03-30 21:40] LABS: INTERNATIONAL NORM RATIO 2.6 (0.9-1.1); Prothrombin Time 31.6 SEC (11.1-13.3)
[2024-03-30 21:44] LABS: Alanine Aminotransferase 14 U/L (0-40); Albumin Level 3.5 g/dL (3.5-5.0); Alkaline Phosphatase 35 U/L (39-117); Anion Gap 13 (12-20); Aspartate Amino Transferase 15 U/L (5-37); Bilirubin Total 0.3 mg/dL (0.0-1.0); Blood Urea Nitrogen 27 mg/dL (9-16); Calcium 8.4 mg/dL (8.4-10.2); Carbon Dioxide 23 mmol/L (22-29); Chloride 107 mmol/L (96-108); Creatinine Clr Calc Pharmacy 34.8; Estimated Glomerular Filt Rate 48; Glucose Random 119 mg/dL (60-115); Potassium 4.2 mmol/L (3.3-5.1); Sodium 139 mmol/L (135-145); Total Protein 5.4 g/dL (6.5-8.0)
[2024-03-30 21:59] LABS: OBS Int Ctl Valid YES; OBS1 POSITIVE (NEGATIVE)
[2024-03-30] MEDS: 0.9 % Sodium Chloride 500 ML 999 ML IV (22:07)
--- NOTE | 2024-03-30 22:11 | P.HPHOSP_ITS ---
History of Present Illness Date of Service: 03/30/24 Chief Complaint: GI bleed This is a 89-year-old male with pertinent history of permanent atrial fibrillation on Eliquis, osteopenia who presents to the emergency department for evaluation of GI bleed. Patient states he has had multiple episodes of bloody bowel movements throughout the day. Patient also had an episode where he got dizzy, lightheaded and passed out. Patient states that this happened about 3 years ago when he had bloody bowel movements. He denies fever, chills or abdominal pain. No vomiting or nausea. No chest discomfort, palpitations, shortness of breath, changes in urinary habits. Patient was initially noted to have a low blood pressure with systolic in the 90s. Blood pressure improved with IV crystalloids in the ER. Patient last took his Xarelto on the day of presentation. Review of Systems 2 Constitutional: Constitutional: Reports fatigue, Reports lethargy, Reports malaise and Reports weakness Cardiovascular: Cardiovascular: Reports no additional cardiovascular complaints Respiratory: Respiratory: Reports no additional respiratory complaints Gastrointestinal: Gastrointestinal: Reports no additional gastrointestinal complaints Genitourinary: Genitourinary: Reports no additional male genitourinary complaints Neurologic: Reports weakness Endocrine: Endocrine: Reports fatigue PMFSH Medical History Osteopenia Enlarged thoracic aorta Paroxysmal atrial fibrillation Family History Father Throat cancer Mother Parkinson disease Surgical History Hx of prostate biopsy Hx of cataract surgery Hx of hernia repair Hx of appendectomy Hx of basal cell carcinoma excision Hx of colonoscopy Social History Alcohol intake: never Patient Tobacco Use Status: Former Tobacco user Smoked in Last 30 Days: No Use of substances other than those prescribed or required for medical reasons: No Advance Directives: No Advance Directives Information Provided: No service: Yes Current occupational status: retired Meds Allergies Allergy/AdvReac Type Severity Reaction Status Date / Time midodrine Allergy Intermediate Itchy red Verified 03/30/24 21:16 rash head to toe metoprolol AdvReac Unknown Verified 03/30/24 21:16 novacain Allergy Unknown syncope Uncoded 03/30/24 21:16 Active Medications: Current Medications Sodium Chloride (Ns) 500 mls @ 999 mls/hr IV .Q31M MARILY Stop: 03/30/24 22:45 Last Admin: 03/30/24 22:07 Dose: 999 mls/hr Home Medications ?Medication ?Instructions ?Recorded ?Confirmed ?Last Taken ?Type alendronate 70 mg tablet 70 mg PO QWEEK 08/21/20 02/24/24 05/22/21 History calcium carbonate (Calcium 600) 600 mg PO BID 05/23/21 02/24/24 05/22/21 History desoximetasone 0.25 % topical cream appl topical BID 01/27/22 02/24/24 Unknown History metronidazole 0.75 % topical cream appl topical BID PRN 01/27/22 02/24/24 Unknown History vitamins A,C,H-igki-egxgwp 4,296 1 cap PO BID 05/19/22 02/24/24 Unknown History mcg-226 mg-90 mg capsule (PreserVision AREDS) multivitamin 0.5 tab PO DAILY 05/27/23 02/24/24 Unknown History Physical Exam 2 Vital Signs and Narrative: Vital Signs: Last Vital Signs Temp 98.2 F 03/30/24 21:07 Pulse 64 03/30/24 21:07 Resp 16 03/30/24 21:07 BP 127/54 L 03/30/24 21:07 Pulse Ox 98 03/30/24 21:07 O2 Del Method Room Air 03/30/24 21:07 BMI result Body Mass Index 21.2 Elderly male lying in bed in no distress Neck supple, no JVD Regular rate and rhythm, S1-S2 heard Regular breath sounds bilaterally, no wheezing or crackles appreciated Abdomen soft nontender, no guarding, no rigidity Patient is awake, alert and oriented to self, place, time and person ; no focal motor deficit Psych: Normal mood No pedal edema Results Labs 03/30/24 21:17 03/30/24 21:17 Labs: Laboratory Results - last 24 hr 03/30/24 03/30/24 21:17 21:51 MCV 91.6 MCH 31.1 MCHC 33.9 RDW 12.6 Plt Count 150 L MPV 9.7 Immature Gran % (Auto) 0.5 H Neut % (Auto) 72.1 Lymph % (Auto) 17.5 L [place] % (Auto) 7.2 Eos % (Auto) 2.3 Baso % (Auto) 0.4 Lymph # (Auto) 1.5 [place] # (Auto) 0.6 Eos # (Auto) 0.2 Baso # (Auto) 0.0 Abs Immat Gran (auto) 0.04 H Absolute Neuts (auto) 6.0 Absolute Nucleated RBC 0.000 Nucleated RBC % (auto) 0.0 PT 31.6 H INR 2.6 H Anion Gap 13 Estim Creat Clear Calc 34.8 Estimated GFR 48 Random Glucose 119 H Calcium 8.4 D Total Bilirubin 0.3 AST 15 ALT 14 Alkaline Phosphatase 35 L Total Protein 5.4 L Albumin 3.5 Stool Occult Blood POSITIVE Blood Type A Negative Antibody Screen NEGATIVE Crossmatch See Detail Assessment and Plan (1) Acute GI bleeding: Status: Acute Plan This is a 89-year-old male with pertinent history of permanent atrial fibrillation on Eliquis, osteopenia who presents to the emergency department for evaluation of GI bleed. #. Acute GI bleed: Will admit patient with cardiac monitoring. Hold Xarelto. Consulting Gastroenterology, appreciate assistance. Imaging with diverticulosis. #. Orthostatic syncope due to above: Resuscitated with IV crystalloids. #. Acute blood loss anemia in the setting of GI bleed: Closely monitor H&H #. Permanent atrial fibrillation: Rate controlled in the ER. Holding Xarelto as above Med rec pending DVT prophylaxis: Mechanical Full code Admit as inpatient and will require two night minimum hospital stay for evaluation of acute GI bleed, close monitoring of hemodynamics, close monitoring of H&H (as above), which is not possible in a lesser acute setting. Specialist consult pending Quality Stroke Does the patient have a stroke diagnosis?: No VTE Prior VTE?: No VTE Risk Level:: Medical - moderate - high VTE Device Contraindication: N/A - Device Ordered VTE Drug Contraindication: Treatment Not Indicated
[2024-03-30 22:33] VITALS: BP 101/57; PULSE 56; RESP 14; O2SAT 96
[2024-03-31] VITALS (35 sets, daily range): BP systolic 85–130; BP diastolic 33–66; PULSE 59–82; RESP 10–21; TEMP 36.2–37.7; O2SAT 92–99; BMI 21.6
[2024-03-31] MEDS: Pantoprazole Sodium 40 MG/10 ML VIAL IVPUSH ×3 (00:13→16:04)
[2024-03-31] MEDS: Lactated Ringers 1,000 ML 999 ML IV ×2 (02:10→05:48)
--- NOTE | 2024-03-31 05:24 | PC.NURSE ---
pt had another episode of bloody stool since arrival to the ER; notified. gave order to transfuse 1unit.
--- NOTE | 2024-03-31 05:55 | PM.EVENT ---
Event Note Date of Service: 03/31/24 Event Note: Patient with 2 large bloody bowel movement and episode of hypotension overnight. Blood pressure improved with PRBC transfusion and crystalloids. Time Spent With Patient Time: Total time managing care of this patient today ____ minutes.
--- NOTE | 2024-03-31 05:56 | PC.NURSE ---
while tranfusing blood pt states he is lightheaded and suddenly not feeling well. HR49 BP65/31 RR8. MD at bedside. LR bolus ordered. LR administered on pressure bag. pt states he is feeling better. HR67 BP124/55 RR12.
[2024-03-31 06:28] LABS: INTERNATIONAL NORM RATIO 2.2 (0.9-1.1); Prothrombin Time 27.3 SEC (11.1-13.3)
[2024-03-31 06:43] LABS: Creatinine Clr Calc Pharmacy 42.1; Estimated Glomerular Filt Rate 59; Potassium 4.5 mmol/L (3.3-5.1); Sodium 136 mmol/L (135-145)
[2024-03-31 06:44] LABS: Anion Gap 14 (12-20); Blood Urea Nitrogen 27 mg/dL (9-16); Carbon Dioxide 16 mmol/L (22-29); Chloride 111 mmol/L (96-108); Glucose Random 107 mg/dL (60-115)
--- NOTE | 2024-03-31 08:47 | PC.NURSE ---
Ankit Santos MD notified of low pressure before transferring to C
--- NOTE | 2024-03-31 08:58 | PC.NURSE ---
Pt. is not to be transferred to [facility] at this point. Continues to have large amounts of bloody stool. MD is consulting with GI, and possibly considering transfer to higher level of care in ICU.
--- NOTE | 2024-03-31 09:07 | PC.NURSE ---
Per MD- ICU recommended CTA for possible IR intervention, and to hold off on sending the pt. to IMC for now.
--- NOTE | 2024-03-31 09:10 | P.PNIM_ITS ---
Subjective Subjective Date of Service: 03/31/24 Interval History: ongoing hematochezia Physical Exam 2 Vital Signs: Vital Signs: Last Vital Signs Temp 98.1 F 03/31/24 09:02 Pulse 63 03/31/24 09:02 Resp 18 03/31/24 09:02 BP 103/49 L 03/31/24 09:02 Pulse Ox 98 03/31/24 09:02 O2 Del Method Room Air 03/31/24 09:02 BMI result Body Mass Index 21.2 General: AO X 3, no acute distress Resp: CTA bilateral, no accessory muscles used CVS: S1,S2,RRR GI: soft, non tender, non distended Neuro: motor grossly intact, alert Psych: appropriate affect, appropriate insight Objective Data Active Medications Acetaminophen (Acetaminophen 325 Mg Tablet) 650 mg PO Q6H PRN PRN Reason: Pain, Mild (Pain Scale 1-3), fever or headache Calcium Carbonate (Calcium Carbonate 750 Mg Tab.Chew) 750 mg PO Q4H PRN PRN Reason: Heartburn Albumin Human (Kedbumin 25 %) 100 mls @ 100 mls/hr IV Q1H [facility] Stop: 03/31/24 10:59 Prothrombin Complex Concent ( Human) 1,500 unit/ IV Miscellaneous Supplies 60 mls @ 480 mls/hr IV .Q8M ONE Stop: 03/31/24 09:06 Magnesium Hydroxide (Milk Of Magnesia 30 Ml Oral.Susp) 30 ml PO DAILY PRN PRN Reason: Constipation Melatonin (Melatonin 3 Mg Tablet) 6 mg PO BEDTIME PRN PRN Reason: Insomnia Ondansetron HCl (Ondansetron Hcl 4 Mg/2 Ml Vial) 4 mg IVPUSH Q8H PRN PRN Reason: Nausea and Vomiting Pantoprazole Sodium (Pantoprazole Sodium 40 Mg/10 Ml Vial) 40 mg IVPUSH BID@0630,1630 [facility] Last Admin: 03/31/24 07:42 Dose: 40 mg Documented By: PABLO Comments: Unable to scan med. d/t hospital-wide computer issues Sodium Chloride (0.9 % Sodium Chloride Flush 3 Ml Syringe) 3 ml IVFLUSH QSHIFT [facility] Last Admin: 03/31/24 03:14 Dose: Not Given Documented By: MICHELLE Non-Admin Reason: Previously Administered Labs 03/30/24 21:17 03/31/24 05:36 Labs: Laboratory Results - last 24 hr 03/30/24 03/30/24 03/31/24 21:17 21:51 05:36 MCV 91.6 MCH 31.1 MCHC 33.9 RDW 12.6 Plt Count 150 L MPV 9.7 Immature Gran % (Auto) 0.5 H Neut % (Auto) 72.1 Lymph % (Auto) 17.5 L [place] % (Auto) 7.2 Eos % (Auto) 2.3 Baso % (Auto) 0.4 Lymph # (Auto) 1.5 [place] # (Auto) 0.6 Eos # (Auto) 0.2 Baso # (Auto) 0.0 Abs Immat Gran (auto) 0.04 H Absolute Neuts (auto) 6.0 Absolute Nucleated RBC 0.000 Nucleated RBC % (auto) 0.0 PT 31.6 H INR 2.6 H Anion Gap 13 14 Estim Creat Clear Calc 34.8 42.1 Estimated GFR 48 59 Random Glucose 119 H 107 Calcium 8.4 D 8.0 L Total Bilirubin 0.3 AST 15 ALT 14 Alkaline Phosphatase 35 L Total Protein 5.4 L Albumin 3.5 Stool Occult Blood POSITIVE Blood Type A Negative Antibody Screen NEGATIVE Crossmatch See Detail 03/31/24 05:40 MCV MCH MCHC RDW Plt Count MPV Immature Gran % (Auto) Neut % (Auto) Lymph % (Auto) [place] % (Auto) Eos % (Auto) Baso % (Auto) Lymph # (Auto) [place] # (Auto) Eos # (Auto) Baso # (Auto) Abs Immat Gran (auto) Absolute Neuts (auto) Absolute Nucleated RBC Nucleated RBC % (auto) PT 27.3 H INR 2.2 H Anion Gap Estim Creat Clear Calc Estimated GFR Random Glucose Calcium Total Bilirubin AST ALT Alkaline Phosphatase Total Protein Albumin Stool Occult Blood Blood Type Antibody Screen Crossmatch Assessment and Plan (1) Acute GI bleeding: Status: Acute Plan 89M PMH paroxysmal afib on xarelto, presented with hematochezia Acute blood loss anemia complicated by hypotension and syncope Likely diverticular bleed Transfusing PRBC, fluid resuscitation, Kcentra, monitor hemoglobin, GI eval, check stat CTA ? Role for IR intervention Paroxysmal atrial fibrillation Xarelto on hold for GI bleed DVT prophylaxis-mechanical due to GI bleed Full code reason for continued hospitalization: Ongoing GI bleed Quality Stroke Does the patient have a stroke diagnosis?: No VTE Prior VTE?: No VTE Risk Level:: Medical - moderate - high VTE Device Contraindication: N/A - Device Ordered VTE Drug Contraindication: Treatment Not Indicated
[2024-03-31] MEDS: Albumin Human 25 % 100 ML IV ×2 (09:19→10:23)
--- NOTE | 2024-03-31 09:38 | PHA.MEDREC ---
Addendum entered by Beckie Quiñones [facility] 03/31/24 10:45: reviewed Addendum entered by Karl Gomez 03/31/24 10:40: Spoke to patient and he was able to confirm his medications. He confirmed he is taking Alendronate 70mg tabs once a week on Sundays and he last took it Monday 03/26. He also confirmed he is taking Xarelto 20mg tabs for his blood thinner medication and he takes it every night with his dinner. He states he took it last night 03/30 with his dinner. Original Note: Pharmacy Consult ? Medication Reconciliation Pharmacy has completed the medication reconciliation. Called patients Lindsey and she was not sure what her takes but states she knows my takes a blood thinner, I am on Eliquis but my is taking a different blood thinner but was not sure and didn't want to confirm anything and states her should be able to confirm his medications.
[2024-03-31] MEDS: iohexoL 350 MG/ML 100 ML INFUS..BTL IV (09:58)
[2024-03-31] MEDS: Hum Prothrombin Cplx(PCC)4Fact 2,000 UNIT in Container,Empty 0 ML 480 UNIT IV (10:06)
[2024-03-31] MEDS: 0.9 % Sodium Chloride Flush 3 ML SYRINGE IVFLUSH ×3 (10:18→19:46)
--- NOTE | 2024-03-31 10:56 | P.CONGS_ITS ---
History of Present Illness Consult details Consult date: 03/31/24 Reason for consult: other (Hematochezia) Requesting physician: Lambert Santos Narrative: 89 y/o man with Afib on Xarelto and diverticulosis who presents with hematochezia that started yesterday afternoon/evening. He reports he last took Xarelto last evening. He denies of abdominal pain, nausea, or vomiting. Review of Systems 2 Constitutional: Constitutional: Reports fatigue Gastrointestinal: Gastrointestinal: Reports hematochezia Endocrine: Endocrine: Reports fatigue PMFSH Past Medical History Medical History Osteopenia Enlarged thoracic aorta Paroxysmal atrial fibrillation Family History Family History Father Throat cancer Mother Parkinson disease Surgical History Surgical History Hx of prostate biopsy Hx of cataract surgery Hx of hernia repair Hx of appendectomy Hx of basal cell carcinoma excision Hx of colonoscopy Social History Social History Alcohol intake: never Patient Tobacco Use Status: Former Tobacco user Smoked in Last 30 Days: No Use of substances other than those prescribed or required for medical reasons: No Advance Directives: No Advance Directives Information Provided: No Nutrition Risks: No Nutritional Risk service: Yes Current occupational status: retired Meds Allergies Allergy/AdvReac Type Severity Reaction Status Date / Time midodrine Allergy Intermediate Itchy red Verified 03/30/24 21:16 rash head to toe metoprolol AdvReac Unknown Verified 03/30/24 21:16 novacain Allergy Unknown syncope Uncoded 03/30/24 21:16 Active Medications: Current Medications Acetaminophen (Acetaminophen 325 Mg Tablet) 650 mg PO Q6H PRN PRN Reason: Pain, Mild (Pain Scale 1-3), fever or headache Calcium Carbonate (Calcium Carbonate 750 Mg Tab.Chew) 750 mg PO Q4H PRN PRN Reason: Heartburn Dronedarone (Dronedarone Hcl 400 Mg Tablet) 400 mg PO BID MARILY Albumin Human (Kedbumin 25 %) 100 mls @ 100 mls/hr IV Q1H MARILY Stop: 03/31/24 10:59 Last Admin: 03/31/24 10:23 Dose: 100 mls/hr Magnesium Hydroxide (Milk Of Magnesia 30 Ml Oral.Susp) 30 ml PO DAILY PRN PRN Reason: Constipation Melatonin (Melatonin 3 Mg Tablet) 6 mg PO BEDTIME PRN PRN Reason: Insomnia Ondansetron HCl (Ondansetron Hcl 4 Mg/2 Ml Vial) 4 mg IVPUSH Q8H PRN PRN Reason: Nausea and Vomiting Pantoprazole Sodium (Pantoprazole Sodium 40 Mg/10 Ml Vial) 40 mg IVPUSH BID@0630,1630 [facility] Last Admin: 03/31/24 07:42 Dose: 40 mg Sodium Chloride (0.9 % Sodium Chloride Flush 3 Ml Syringe) 3 ml IVFLUSH QSHIFT [facility] Last Admin: 03/31/24 10:18 Dose: 3 ml Home Medications ?Medication ?Instructions ?Recorded ?Confirmed ?Last Taken ?Type alendronate 70 mg tablet 70 mg PO SANTANA 08/21/20 03/31/24 03/26/24 History calcium carbonate (Calcium 600) 600 mg PO BID 05/23/21 03/31/24 03/30/24 18:00 History desoximetasone 0.25 % topical cream 1 appl topical DAILY PRN itchiness 01/27/22 03/31/24 03/30/24 18:00 History vitamins A,C,P-fold-lsiqsy 4,296 1 cap PO BID 05/19/22 03/31/24 03/30/24 18:00 History mcg-226 mg-90 mg capsule (PreserVision AREDS) multivitamin 1 tab PO DAILY 03/31/24 03/31/24 03/30/24 18:00 History rivaroxaban 20 mg tablet (Xarelto) 20 mg PO BEDTIME@1830 03/31/24 03/31/24 03/30/24 18:00 History Physical Exam 2 Vital Signs: Vital Signs: Last Vital Signs Temp 98.1 F 03/31/24 10:18 Pulse 66 03/31/24 10:18 Resp 14 03/31/24 10:18 BP 130/64 03/31/24 10:18 Pulse Ox 98 03/31/24 10:12 O2 Del Method Room Air 03/31/24 10:12 BMI result Body Mass Index 21.6 Const: General: cooperative, comfortable, alert and awake Resp: Effort & Inspection: normal respiratory effort Cardio: Rate: regular rate GI: Other: soft, NT, ND Psych: Other: A+O x 4 Results Labs 03/30/24 21:17 03/31/24 05:36 Labs: Abnormal lab results 03/30/24 03/31/24 03/31/24 Range/Units 21:17 05:36 05:40 RBC 3.22 L D (4.60-5.80) X10*6/uL Hgb 10.0 L D (14.0-18.0) g/dl Hct 29.5 L D (42.0-52.0) % Plt Count 150 L (160-400) X10*3/uL Immature Gran % (Auto) 0.5 H (0.0-0.4) % Lymph % (Auto) 17.5 L (20-40) % Abs Immat Gran (auto) 0.04 H (0.00-0.03) X10*3/uL PT 31.6 H 27.3 H (11.1-13.3) SEC INR 2.6 H 2.2 H (0.9-1.1) Chloride 111 H (96-108) mmol/L Carbon Dioxide 16 L (22-29) mmol/L BUN 27 H 27 H (9-16) mg/dL Random Glucose 119 H (60-115) mg/dL Calcium 8.0 L (8.4-10.2) mg/dL Alkaline Phosphatase 35 L (39-117) U/L Total Protein 5.4 L (6.5-8.0) g/dL Crossmatch See Detail Short CBC 03/30/24 Range/Units 21:17 WBC 8.3 (4.8-10.8) X10*3/uL Hgb 10.0 L D (14.0-18.0) g/dl Hct 29.5 L D (42.0-52.0) % Plt Count 150 L (160-400) X10*3/uL BMP 03/30/24 03/31/24 21:17 05:36 Sodium 139 136 Potassium 4.2 4.5 Chloride 107 111 H Carbon Dioxide 23 16 L BUN 27 H 27 H Creatinine 1.40 1.16 Calcium 8.4 D 8.0 L Liver Function 03/30/24 Range/Units 21:17 Total Bilirubin 0.3 (0.0-1.0) mg/dL AST 15 (5-37) U/L ALT 14 (0-40) U/L Alkaline Phosphatase 35 L (39-117) U/L Albumin 3.5 (3.5-5.0) g/dL All other labs normal. Assessment and Plan (1) Acute GI bleeding: Status: Acute (2) Anticoagulated: Status: Acute (3) Paroxysmal atrial fibrillation: Status: Acute Plan 89 y/o man with LGIB due to diverticular disease -CTA shows extravasation in descending colon -Given recent Xarelto use and hemodynamic stability with resuscitation, would continue supportive care for now. Indication for angiogram would be hemodynamic instability despite ongoing resuscitation. -D/w Dr Jeter -Charley communicated to ED and Hospitalist Total time managing care of this patient today: 30 minutes. Procedures Date of Service Date of Service: 03/31/24
[2024-03-31] MEDS: Phytonadione (Vit K1) 5 MG in 0.9 % Sodium Chloride 50 ML 50.5 MG IV (12:37)
--- NOTE | 2024-03-31 15:00 | MHC.CM.PN ---
IMM 03/31. Pt self-care, lives at home with his . Pts family will transport him home at discharge. Pt states he has a HCP, copy requested. PCP: Dr. Giancarlo Slade
[2024-03-31 16:11] LABS: Basophils Percent Auto 0.4 % (0-2); Eosinophils Absolute Auto 0.1 X10*3/uL (0.0-0.4); Eosinophils Percent Auto 0.8 % (0-4); Hematocrit 22.5 % (42.0-52.0); Hemoglobin 7.9 g/dl (14.0-18.0); Imm Gran Abs Auto 0.02 X10*3/uL (0.00-0.03); Imm Gran Pct Auto 0.3 % (0.0-0.4); Lymphocytes Absolute Auto 1.1 X10*3/uL (1.2-4.9); Lymphocytes Percent Auto 13.5 % (20-40); Mean Corpuscular HGB Conc 35.1 g/dl (31.0-36.0); Mean Corpuscular Hemoglobin 31.6 pg (27.0-33.0); Mean Platelet Volume 10.1 fL (9.4-12.4); Monocytes Absolute Auto 0.8 X10*3/uL (0.1-1.2); Monocytes Percent Auto 9.5 % (2-11); Neutrophils Percent Auto 75.5 % (45-73); Red Cell Distribution Width 13.8 % (11.0-16.0); White Blood Count 7.9 X10*3/uL (4.8-10.8)
[2024-03-31 16:14] LABS: Platelet Count 80 X10*3/uL (160-400)
[2024-03-31 16:15] LABS: MANUAL DIFF FLAG SCAN
[2024-03-31 16:31] LABS: SLIDE REVIEW VERIFIED
--- NOTE | 2024-03-31 18:52 | P.CONCC_ITS ---
History of Present Illness Data of Consult Service Date: 03/31/24 Primary Care Provider: Giancarlo Almendarez MD HPI Reason for consult: Blood in stools Apparently previously healthy 89-year-old gentleman with only medical problems of atrial fibrillation for which he was on apixaban, diltiazem and amiodarone presented to the ED after he noted blood in his stools yesterday. Apparently he was admitted to the hospitalist service and earlier this morning he had multiple episodes of jorge luis hematochezia. After this patient was given Kcentra, 4 units of PRBC and 2 units of FFP during the day, underwent CT angiogram of the abdomen which showed active extravasation in the descending colon. IR was consulted who advised to conservatively manage the patient as the blood pressures were stable, GI was consulted who also advised for conservative management. However patient continued to have multiple bloody bowel movements and started becoming hypotensive so is being transferred to medical ICU. Review of Systems 2 Constitutional: Constitutional: Denies anorexia, Denies chills, Denies difficulty sleeping and Denies excessive sweating Eyes: Eyes: Denies change in vision and Denies decreased night vision ENT: Reports Normal hearing present and Denies bleeding gums Cardiovascular: Cardiovascular: Denies chest pain, Denies chest pain with activity, Denies Epigastric Pain and Denies diaphoresis Respiratory: Respiratory: Denies chest congestion, Denies cough and Denies hemoptysis Gastrointestinal: Gastrointestinal: Reports abdominal pain (In the left lower quadrant), Reports change in stool character, Denies coffee ground emesis, Denies constipation and Reports GI cramping Genitourinary: Genitourinary: Denies change in libido and Denies hematuria Neurologic: Reports Normal hearing present, Denies Neuro-related abnormal movements, Denies Abnormal speech present and Denies confusion Psychiatric: Psychiatric: Denies change in libido and Denies confusion Endocrine: Endocrine: Denies change in libido and Denies excessive sweating PMFSH Past Medical History Medical History Osteopenia Enlarged thoracic aorta Paroxysmal atrial fibrillation Family History Family History Father Throat cancer Mother Parkinson disease Surgical History Surgical History Hx of prostate biopsy Hx of cataract surgery Hx of hernia repair Hx of appendectomy Hx of basal cell carcinoma excision Hx of colonoscopy Social History Social History Household Members: Spouse Housing: House Do you presently have visiting nurse or other home services: No Alcohol intake: never Patient Tobacco Use Status: Former Tobacco user service: No Current occupational status: retired Meds Allergies Allergy/AdvReac Type Severity Reaction Status Date / Time midodrine Allergy Intermediate Itchy red Verified 03/30/24 21:16 rash head to toe metoprolol AdvReac Unknown Verified 03/30/24 21:16 novacain Allergy Unknown syncope Uncoded 03/30/24 21:16 Active Medications: Current Medications Acetaminophen (Acetaminophen 325 Mg Tablet) 650 mg PO Q6H PRN PRN Reason: Pain, Mild (Pain Scale 1-3), fever or headache Calcium Carbonate (Calcium Carbonate 750 Mg Tab.Chew) 750 mg PO Q4H PRN PRN Reason: Heartburn Dronedarone (Dronedarone Hcl 400 Mg Tablet) 400 mg PO BID [facility] Magnesium Hydroxide (Milk Of Magnesia 30 Ml Oral.Susp) 30 ml PO DAILY PRN PRN Reason: Constipation Melatonin (Melatonin 3 Mg Tablet) 6 mg PO BEDTIME PRN PRN Reason: Insomnia Ondansetron HCl (Ondansetron Hcl 4 Mg/2 Ml Vial) 4 mg IVPUSH Q8H PRN PRN Reason: Nausea and Vomiting Pantoprazole Sodium (Pantoprazole Sodium 40 Mg/10 Ml Vial) 40 mg IVPUSH BID@0630,1630 [facility] Last Admin: 03/31/24 16:04 Dose: 40 mg Sodium Chloride (0.9 % Sodium Chloride Flush 3 Ml Syringe) 3 ml IVFLUSH QSHIFT [facility] Last Admin: 03/31/24 16:05 Dose: 3 ml Home Medications ?Medication ?Instructions ?Recorded ?Confirmed ?Last Taken ?Type alendronate 70 mg tablet 70 mg PO SANTANA 08/21/20 03/31/24 03/26/24 History calcium carbonate (Calcium 600) 600 mg PO BID 05/23/21 03/31/24 03/30/24 18:00 History desoximetasone 0.25 % topical cream 1 appl topical DAILY PRN itchiness 0503/31/24 03/30/24 18:00 History vitamins A,C,A-wdma-vjcsqx 4,296 1 cap PO BID 05/19/22 03/31/24 03/30/24 18:00 History mcg-226 mg-90 mg capsule (PreserVision AREDS) multivitamin 1 tab PO DAILY 03/31/24 03/31/24 03/30/24 18:00 History rivaroxaban 20 mg tablet (Xarelto) 20 mg PO BEDTIME@1830 03/31/24 03/31/24 03/30/24 18:00 History Physical Exam 2 Vital Signs: Vital Signs: Last Vital Signs Temp 97.5 F 03/31/24 16:27 Pulse 68 03/31/24 18:41 Resp 15 03/31/24 18:41 BP 122/50 L 03/31/24 18:41 Pulse Ox 92 03/31/24 18:41 O2 Del Method Room Air 03/31/24 18:41 BMI result Body Mass Index 20.0 General: ill appearing and tired appearing Nutritional Appearance: poorly nourished and under weight Eyes: appearance normal, both eyes and all related structures; Alignment and Position: alignment normal and position normal Neck: No lymphadenopathy, no thyromegaly Resp: bilateral air entry equal, no added sounds present Cardio: Regular rate, regular rhythm; Heart sounds: S1 normal heart sound present and S2 normal heart sound present, no edema GI: soft, slight tenderness in the left lower quadrant, no guarding, no hepatosplenomegaly : bladder normal to inspection, bladder normal to palpation, no renal angle tenderness Skin: no rashes or lesions noted and elasticity normal Neuro: oriented to person, oriented to place, oriented to time and moves all extremities Const: General: No confusion Orientation/consciousness: No confusion Neuro: General: No confusion Cranial nerves: Yes Normal hearing present Speech: No Abnormal speech present Results Labs 03/31/24 15:57 03/31/24 05:36 Labs: Short CBC 03/30/24 03/31/24 03/31/24 Range/Units 21:17 15:57 15:57 WBC 8.3 7.9 (4.8-10.8) X10*3/uL Hgb 10.0 L D 7.9 L D Cancelled (14.0-18.0) g/dl Hct 29.5 L D 22.5 L D (42.0-52.0) % Plt Count 150 L (160-400) X10*3/uL 03/31/24 Range/Units 15:57 WBC (4.8-10.8) X10*3/uL Hgb (14.0-18.0) g/dl Hct Cancelled (42.0-52.0) % Plt Count 80 L D (160-400) X10*3/uL BMP 03/30/24 03/31/24 21:17 05:36 Sodium 139 136 Potassium 4.2 4.5 Chloride 107 111 H Carbon Dioxide 23 16 L BUN 27 H 27 H Creatinine 1.40 1.16 Calcium 8.4 D 8.0 L Liver Function 03/30/24 Range/Units 21:17 Total Bilirubin 0.3 (0.0-1.0) mg/dL AST 15 (5-37) U/L ALT 14 (0-40) U/L Alkaline Phosphatase 35 L (39-117) U/L Albumin 3.5 (3.5-5.0) g/dL Assessment and Plan (1) Acute GI bleeding: Status: Acute (2) Persistent atrial fibrillation: Status: Acute (3) Low blood pressure: Status: Acute (4) Interstitial lung disease: Status: Acute (5) Cough: Status: Acute Plan Cardiac: Hemorrhagic Shock: Possibly secondary to lower GI bleed If the blood pressure drops we will treat him with more colloids then crystalloids If needed we will Levophed support to keep map above 65 mm Hg but volume replacement we will be the 1st choice Atrial fibrillation: Diltiazem withheld, anticoagulation reversed with Kcentra We will continue amiodarone for rhythm control Lower GI bleed: Possibly secondary to diverticular bleed CT angiogram showed active extravasation in the descending colon, interventional radiology advised for conservative management, GI consulted Continue pantoprazole 40 mg b.i.d. Acute blood loss anemia: Secondary to lower GI bleed We will closely monitor CBC, PT INR every 6 hours We will transfuse PRBCs to keep the hemoglobin above 7 and SBP above 90 Received 4 units of PRBC, 2 units of FFP so far Prophylaxis: SCD, pantoprazole Total time managing care of this patient today: 45 minutes.
--- NOTE | 2024-03-31 21:19 | P.EN_ITS ---
Event Note Date of Service: 03/31/24 Event Note: GI consult dictated earlier today, not yet transcribed by district recruiter Diverticular bleed reverse anticoagulation transfuse based on bleeding seen on ct angiography is the next step. Time Spent With Patient Time: Total time managing care of this patient today ____ minutes.
--- NOTE | 2024-03-31 21:37 | PC.NURSE ---
Addendum entered by Diana Day RN 04/01/24 06:40: Labs back with H+H 7.3 low/ 20.6 critical. PA made aware with verbal orders to continue with second unit of RBC transfusion as previously ordered. RBCs currently infusing. Scheduled 06:00 CBC deferred until this transfusion is finished later this morning per PA. This plan was discussed with phlebotomy and oncoming nurse. Handoff report given. Addendum entered by Diana Day RN 04/01/24 03:57: First of two units PRBC's infused. PA verbal order to obtain ordered morning labs now prior to infusing second unit. Phlebotomy to bedside. Addendum entered by Diana Day RN 03/31/24 23:52: Plan for labs confirmed with PA following end of ordered transfusions. PA orders to obtain previously ordered PT/INR now, as well as CBC and BMP. Phlebotomy notified and to bedside. Original Note: Assumed care of patient at 19:00. 19:04 order for PT/INR ordered by Dr. Hadley. Lab order clarified as pt had FFP infusing on assuming care, with another unit ordered and to be transfused after the first. Per Dr. Hadley, okay to obtain PT/INR with next ordered q6h CBC. Platelets ordered by overnight covering PA Aniket Carter. Will obtain and infuse collin once FFP is finished infusing for safety; per policy only one blood product transfused at a time in case of reaction. Discussed with blood bank. Pt with NPO diet ordered. Pediatric Intensive Physician requested clarification for evening meds as pt requesting his scheduled dronedarone. PA verbal order okay for meds with sip of water. Pt retaining urine despite attempts to void while sitting on the side of the bed with staff assistance per pt request. Bladder scan showed 813ml. PA notified, orders to place a kuhn catheter given. Discussed with patient who is agreeable.
[2024-03-31] MEDS: Dronedarone HCl 400 MG TABLET PO (21:44)
[2024-04-01] VITALS (29 sets, daily range): BP systolic 96–126; BP diastolic 36–65; PULSE 54–74; RESP 12–22; TEMP 36.8–37.7; O2SAT 95–100; BMI 20.7
[2024-04-01 00:09] LABS: Mean Corpuscular HGB Conc 36.6 g/dl (31.0-36.0); Mean Corpuscular Hemoglobin 32.1 pg (27.0-33.0); Mean Corpuscular Volume 87.8 fL (80.0-98.0); Mean Platelet Volume 9.7 fL (9.4-12.4); Red Blood Count 1.96 X10*6/uL (4.60-5.80); Red Cell Distribution Width 14.1 % (11.0-16.0); White Blood Count 10.2 X10*3/uL (4.8-10.8)
[2024-04-01 00:11] LABS: INTERNATIONAL NORM RATIO 1.3 (0.9-1.1); Platelet Count 89 X10*3/uL (160-400); Prothrombin Time 16.4 SEC (11.1-13.3)
[2024-04-01 00:12] LABS: Hemoglobin 6.3 g/dl (14.0-18.0)
[2024-04-01 00:13] LABS: Anion Gap 13 (12-20); Blood Urea Nitrogen 25 mg/dL (9-16); Calcium 7.6 mg/dL (8.4-10.2); Carbon Dioxide 21 mmol/L (22-29); Chloride 111 mmol/L (96-108); Creatinine Clr Calc Pharmacy 47.1; Estimated Glomerular Filt Rate > 60; Glucose Random 119 mg/dL (60-115); Hematocrit 17.2 % (42.0-52.0); Potassium 4.1 mmol/L (3.3-5.1); Sodium 141 mmol/L (135-145)
--- NOTE | 2024-04-01 01:48 | CONS_ITS ---
DATE OF SERVICE: 03/31/2024 REFERRING PHYSICIAN: Dr. Murphy REASON FOR CONSULTATION: GI bleeding. HISTORY OF PRESENT ILLNESS: The patient is a pleasant 89-year-old man, who was admitted to the hospital after presenting to the emergency room with complaints of lower GI bleeding. He states he felt well until yesterday afternoon when he had the urge to move his bowels and passed diarrhea with bloody stool. This happened several times at home with some associated lightheadedness and syncope. He presented to the emergency room by ambulance. He does take Eliquis for atrial fibrillation and took his last dose last night after the bleeding initially started. He has no complaints of abdominal pain. He does have some crampy discomfort prior to moving his bowels. He presented to the emergency room where he was evaluated with laboratory studies showing a hematocrit of 29.5. Vital signs showed some blood pressures in the 80 and 90s on admission, which improved after he received blood transfusion and fluids. CT imaging was obtained which is reviewed. This is interpreted as showing extensive diverticulosis and a followup CT scan showed a region of extravasation of contrast into the lumen of the mid descending colon. Interventional Radiology was consulted and recommended reversing his anticoagulation which was currently being done now. The patient has been given 3 units of packed red blood cells and is currently receiving his 4th. Previous colonoscopy done for hematochezia in May 2015 showed sigmoid diverticulosis, we reviewed this today. PAST MEDICAL HISTORY: 1. Atrial fibrillation. 2. Osteopenia. 3. Enlarged thoracic aorta. 4. Colon polyps. CURRENT MEDICATIONS: Current medication list is reviewed in the chart. ALLERGIES: MULTIPLE MEDICATION ALLERGIES ARE REVIEWED. FAMILY HISTORY: This is reviewed with the patient and is noncontributory. SOCIAL HISTORY: There is no current tobacco, alcohol, or substance abuse. REVIEW OF SYSTEMS: SKIN: No pruritus. HEENT: Negative. CARDIOPULMONARY: He denies shortness of breath or chest pain. GASTROINTESTINAL: As above. GENITOURINARY: Negative. NEUROPSYCHIATRIC: Negative. PHYSICAL EXAMINATION: GENERAL: Shows a pleasant male, lying comfortably in bed. VITAL SIGNS: Reviewed in the electronic medical record and are stable. SKIN: Anicteric. HEENT: Shows no scleral icterus. NECK: Without lymphadenopathy or thyromegaly. LUNGS: Clear. HEART: Shows a regular rate and rhythm. S1, S2. No murmur. ABDOMEN: Soft without focal masses or tenderness. Bowel sounds are present. No organomegaly is noted. EXTREMITIES: Without edema. LABORATORY DATA: Reviewed as are his CT scans. IMPRESSION: Gastrointestinal bleeding. This appears most consistent with a diverticular bleed with evidence of active bleeding on his CAT scan. I agree with reversing his anticoagulation and obtaining interventional radiology consultation for possible embolization. Colonoscopy is unlikely to add much at this point. This was discussed with the patient. Thanks for asking me to see him. I will follow him in the hospital with you. MD JOHN Lopez/LALA / [id number] MTDD
[2024-04-01 04:10] LABS: PLT CLUMP 1
[2024-04-01 04:12] LABS: Hemoglobin 7.3 g/dl (14.0-18.0); Mean Corpuscular HGB Conc 35.4 g/dl (31.0-36.0); Mean Corpuscular Volume 90.4 fL (80.0-98.0); Mean Platelet Volume 10.2 fL (9.4-12.4); Red Blood Count 2.28 X10*6/uL (4.60-5.80); Red Cell Distribution Width 14.7 % (11.0-16.0)
[2024-04-01 04:15] LABS: Hematocrit 20.6 % (42.0-52.0); Platelet Count 91 X10*3/uL (160-400)
[2024-04-01 04:26] LABS: Anion Gap 12 (12-20); Blood Urea Nitrogen 23 mg/dL (9-16); Calcium 7.6 mg/dL (8.4-10.2); Carbon Dioxide 22 mmol/L (22-29); Chloride 112 mmol/L (96-108); Creatinine Clr Calc Pharmacy 46.6; Estimated Glomerular Filt Rate > 60; Glucose Fasting 110 mg/dL (60-99); Sodium 142 mmol/L (135-145)
[2024-04-01] MEDS: Pantoprazole Sodium 40 MG/10 ML VIAL IVPUSH ×2 (05:36→17:52)
[2024-04-01] MEDS: Dronedarone HCl 400 MG TABLET PO ×2 (08:37→20:39)
[2024-04-01 08:50] LABS: Hematocrit 24.7 % (42.0-52.0); Hemoglobin 8.8 g/dl (14.0-18.0); Mean Corpuscular HGB Conc 35.6 g/dl (31.0-36.0); Mean Corpuscular Hemoglobin 32.1 pg (27.0-33.0); Mean Corpuscular Volume 90.1 fL (80.0-98.0); Mean Platelet Volume 9.7 fL (9.4-12.4); Red Blood Count 2.74 X10*6/uL (4.60-5.80); White Blood Count 8.6 X10*3/uL (4.8-10.8)
[2024-04-01 08:51] LABS: Platelet Count 84 X10*3/uL (160-400)
[2024-04-01] MEDS: 0.9 % Sodium Chloride Flush 3 ML SYRINGE IVFLUSH ×2 (08:54→17:52)
--- NOTE | 2024-04-01 10:40 | P.PNCC_ITS ---
Subjective Subjective Date of Service: 04/01/24 Critical Care Time (minutes): 35 Comment: No further episodes of hematochezia overnight Received 2 units of PRBC this morning Physical Exam 2 Vital Signs: Vital Signs: Last Vital Signs Temp 99.0 F 04/01/24 09:00 Pulse 54 04/01/24 10:00 Resp 20 04/01/24 10:00 BP 112/47 L 04/01/24 10:00 Pulse Ox 99 04/01/24 10:00 O2 Del Method Room Air 04/01/24 10:00 BMI result Body Mass Index 20.7 General: Not in acute distress, calm appearing Nutritional Appearance: Okay nourished for his age and under weight Eyes: appearance normal, both eyes and all related structures; Alignment and Position: alignment normal and position normal Neck: No lymphadenopathy, no thyromegaly Resp: bilateral air entry equal, occasional added sounds present Cardio: Regular rate, regular rhythm; Heart sounds: S1 normal heart sound present and S2 normal heart sound present GI: soft, nontender, no guarding, no hepatosplenomegaly : bladder normal to inspection, bladder normal to palpation, no renal angle tenderness Skin: no rashes or lesions noted and elasticity normal Neuro: oriented to person, oriented to place, oriented to time and moves all extremities Objective Data Labs 04/01/24 08:44 04/01/24 03:56 Labs: Laboratory Results - last 24 hr 03/30/24 03/31/24 03/31/24 21:17 15:57 15:57 WBC 7.9 RBC 2.50 L D Hgb 7.9 L D Cancelled Hct 22.5 L D MCV MCH MCHC RDW Plt Count MPV Immature Gran % (Auto) Neut % (Auto) Lymph % (Auto) [place] % (Auto) Eos % (Auto) Baso % (Auto) Lymph # (Auto) [place] # (Auto) Eos # (Auto) Baso # (Auto) Abs Immat Gran (auto) Absolute Neuts (auto) Absolute Nucleated RBC Nucleated RBC % (auto) Smear Tech's Comments PT INR Sodium Potassium Chloride Carbon Dioxide Anion Gap BUN Creatinine Estim Creat Clear Calc Estimated GFR Random Glucose Fasting Glucose Calcium Blood Type A Negative Antibody Screen NEGATIVE Crossmatch See Detail 03/31/24 03/31/24 04/01/24 15:57 23:56 03:56 WBC 10.2 9.0 RBC 1.96 L D 2.28 L Hgb 6.3 L* D 7.3 L Hct Cancelled 17.2 L* D 20.6 L* MCV 90.0 87.8 90.4 MCH 31.6 32.1 32.0 MCHC 35.1 36.6 H 35.4 RDW 13.8 14.1 14.7 Plt Count 80 L D 89 L 91 L MPV 10.1 9.7 10.2 Immature Gran % (Auto) 0.3 Neut % (Auto) 75.5 H Lymph % (Auto) 13.5 L [place] % (Auto) 9.5 Eos % (Auto) 0.8 Baso % (Auto) 0.4 Lymph # (Auto) 1.1 L [place] # (Auto) 0.8 Eos # (Auto) 0.1 Baso # (Auto) 0.0 Abs Immat Gran (auto) 0.02 Absolute Neuts (auto) 6.0 Absolute Nucleated RBC 0.000 0.000 0.000 Nucleated RBC % (auto) 0.0 0.0 0.0 Smear Tech's Comments VERIFIED PT 16.4 H D INR 1.3 H Sodium 141 142 Potassium 4.1 4.0 Chloride 111 H 112 H Carbon Dioxide 21 L 22 Anion Gap 13 12 BUN 25 H 23 H Creatinine 0.98 0.99 Estim Creat Clear Calc 47.1 46.6 Estimated GFR > 60 > 60 Random Glucose 119 H Fasting Glucose 110 H Calcium 7.6 L 7.6 L Blood Type Antibody Screen Crossmatch 04/01/24 08:44 WBC 8.6 RBC 2.74 L D Hgb 8.8 L D Hct 24.7 L MCV 90.1 MCH 32.1 MCHC 35.6 RDW 14.0 Plt Count 84 L MPV 9.7 Immature Gran % (Auto) Neut % (Auto) Lymph % (Auto) [place] % (Auto) Eos % (Auto) Baso % (Auto) Lymph # (Auto) [place] # (Auto) Eos # (Auto) Baso # (Auto) Abs Immat Gran (auto) Absolute Neuts (auto) Absolute Nucleated RBC 0.000 Nucleated RBC % (auto) 0.0 Smear Tech's Comments PT INR Sodium Potassium Chloride Carbon Dioxide Anion Gap BUN Creatinine Estim Creat Clear Calc Estimated GFR Random Glucose Fasting Glucose Calcium Blood Type Antibody Screen Crossmatch Progress Note: A&P Assessment and plan (1) Acute GI bleeding: Status: Acute (2) Persistent atrial fibrillation: Status: Acute (3) Interstitial lung disease: Status: Acute Plan Cardiac: Hemorrhagic Shock: Possibly secondary to lower GI bleed, improved blood pressures are better and more stable If the blood pressure drops we will treat him with more colloids and later followed by crystalloids If needed we will Levophed support to keep map above 65 mm Hg but volume replacement we will be the 1st choice Atrial fibrillation: Diltiazem withheld, anticoagulation reversed with Kcentra We will continue amiodarone for rhythm control Lower GI bleed: Possibly secondary to diverticular bleed CT angiogram showed active extravasation in the descending colon, interventional radiology advised for conservative management, GI consulted who deferred any interventions right now Continue pantoprazole 40 mg b.i.d. Acute blood loss anemia: Secondary to lower GI bleed Continued monitor CBC, PT INR every 6 hours We will transfuse PRBCs to keep the hemoglobin above 7 and SBP above 90 Received 6 units of PRBC, 2 units of FFP and 1 unit of platelets so far Acute kidney injury: Secondary to acute blood loss This has improved, creatinine is down with resuscitation Prophylaxis: SCD, pantoprazole We will continue to closely monitor his hemodynamics in the ICU Quality Stroke Does the patient have a stroke diagnosis?: No VTE Prior VTE?: No VTE Risk Level:: Medical - moderate - high VTE Device Contraindication: N/A - Device Ordered VTE Drug Contraindication: Treatment Not Indicated
[2024-04-01 11:59] LABS: Hematocrit 23.6 % (42.0-52.0); Hemoglobin 8.3 g/dl (14.0-18.0); Mean Corpuscular HGB Conc 35.2 g/dl (31.0-36.0); Mean Corpuscular Hemoglobin 31.8 pg (27.0-33.0); Mean Corpuscular Volume 90.4 fL (80.0-98.0); Mean Platelet Volume 10.2 fL (9.4-12.4); Platelet Count 79 X10*3/uL (160-400); Red Blood Count 2.61 X10*6/uL (4.60-5.80); White Blood Count 8.1 X10*3/uL (4.8-10.8)
--- NOTE | 2024-04-01 14:07 | MHC.CM.PN ---
Pt remains clinically improved and may transfer to the medical floor. No service needs identified: CM to follow
[2024-04-01 14:24] LABS: Hematocrit 23.9 % (42.0-52.0); Hemoglobin 8.7 g/dl (14.0-18.0)
[2024-04-01 18:08] LABS: Hematocrit 23.2 % (42.0-52.0); Hemoglobin 8.5 g/dl (14.0-18.0); Mean Corpuscular HGB Conc 36.6 g/dl (31.0-36.0); Mean Corpuscular Hemoglobin 32.8 pg (27.0-33.0); Mean Corpuscular Volume 89.6 fL (80.0-98.0); Mean Platelet Volume 9.8 fL (9.4-12.4); Red Blood Count 2.59 X10*6/uL (4.60-5.80); White Blood Count 7.9 X10*3/uL (4.8-10.8)
[2024-04-01 18:09] LABS: Platelet Count 80 X10*3/uL (160-400)
--- NOTE | 2024-04-01 20:17 | PC.NURSE ---
Assumed care of pt at 1900. Pt is A&O X3. Denies pain. Denies Nor V. No rectal bleeding today. Last BM 03/31/24. Hgb/Hct q6HR. Last done at 1800...8.7/23.9 (8.5/23.2 at noon). Abdomen soft, non tender, + bowel sounds 4 quads. Started on clear liquids at at 2000. Tolerating meng sammy thus far. Guerra cath d/c'd. Pt tolerated removal well. Urinal at bedside. Monitor shows SB-SR, HR 50's-60's. BP stable 126/56. No resp difficulties on room air. Pt to be transferred to [facility]. Waiting to give report to [facility] RN. Pt called and informed her of transfer to room 444.
[2024-04-02] VITALS: BP 135/62; PULSE 55; RESP 20; TEMP 36.8; O2SAT 98
[2024-04-02 00:46] LABS: Hematocrit 22.8 % (42.0-52.0); Hemoglobin 8.3 g/dl (14.0-18.0); Mean Corpuscular HGB Conc 36.4 g/dl (31.0-36.0); Mean Corpuscular Hemoglobin 32.4 pg (27.0-33.0); Mean Corpuscular Volume 89.1 fL (80.0-98.0); Mean Platelet Volume 10.2 fL (9.4-12.4); Platelet Count 90 X10*3/uL (160-400); Red Blood Count 2.56 X10*6/uL (4.60-5.80); Red Cell Distribution Width 13.9 % (11.0-16.0); White Blood Count 7.5 X10*3/uL (4.8-10.8)
[2024-04-02] MEDS: 0.9 % Sodium Chloride Flush 3 ML SYRINGE IVFLUSH ×4 (01:53→21:20)
[2024-04-02 03:11] VITALS: BP 106/46; PULSE 59; RESP 20; TEMP 36.5; O2SAT 97
[2024-04-02 05:33] VITALS: BMI 20.3
[2024-04-02] MEDS: Pantoprazole Sodium 40 MG/10 ML VIAL IVPUSH ×2 (05:56→17:20)
[2024-04-02 07:06] LABS: Hemoglobin 8.3 g/dl (14.0-18.0); Mean Corpuscular HGB Conc 36.1 g/dl (31.0-36.0); Mean Corpuscular Hemoglobin 32.4 pg (27.0-33.0); Mean Corpuscular Volume 89.8 fL (80.0-98.0); Mean Platelet Volume 10.5 fL (9.4-12.4); Red Blood Count 2.56 X10*6/uL (4.60-5.80); Red Cell Distribution Width 13.6 % (11.0-16.0); White Blood Count 7.3 X10*3/uL (4.8-10.8)
[2024-04-02 07:16] LABS: Platelet Count 92 X10*3/uL (160-400)
[2024-04-02 07:22] VITALS: BP 132/72; PULSE 56; RESP 16; TEMP 36.4; O2SAT 96
[2024-04-02] MEDS: Dronedarone HCl 400 MG TABLET PO ×2 (08:38→21:19)
--- NOTE | 2024-04-02 09:35 | HO.PM.IMPN ---
Subjective Subjective Date of Service: 04/02/24 Interval History: last hematochezia episode on 03/31/24 Physical Exam Vital Signs: Vital Signs: Last Vital Signs Temp 97.6 F 04/02/24 07:22 Pulse 56 04/02/24 07:22 Resp 16 04/02/24 07:22 BP 132/72 04/02/24 07:22 Pulse Ox 96 04/02/24 07:22 O2 Del Method Room Air 04/02/24 07:22 BMI result Body Mass Index 20.3 General: Not in acute distress, calm appearing Nutritional Appearance: Okay nourished for his age and under weight Eyes: appearance normal, both eyes and all related structures; Alignment and Position: alignment normal and position normal Neck: No lymphadenopathy, no thyromegaly Resp: bilateral air entry equal, occasional added sounds present Cardio: Regular rate, regular rhythm; Heart sounds: S1 normal heart sound present and S2 normal heart sound present GI: soft, nontender, no guarding, no hepatosplenomegaly : bladder normal to inspection, bladder normal to palpation, no renal angle tenderness Skin: no rashes or lesions noted and elasticity normal Neuro: oriented to person, oriented to place, oriented to time and moves all extremities Objective Data Active Medications Acetaminophen (Acetaminophen 325 Mg Tablet) 650 mg PO Q6H PRN PRN Reason: Pain, Mild (Pain Scale 1-3), fever or headache Calcium Carbonate (Calcium Carbonate 750 Mg Tab.Chew) 750 mg PO Q4H PRN PRN Reason: Heartburn Dronedarone (Dronedarone Hcl 400 Mg Tablet) 400 mg PO BID [facility] Last Admin: 04/02/24 08:38 Dose: 400 mg Documented By: DOBROB Melatonin (Melatonin 3 Mg Tablet) 6 mg PO BEDTIME PRN PRN Reason: Insomnia Ondansetron HCl (Ondansetron Hcl 4 Mg/2 Ml Vial) 4 mg IVPUSH Q8H PRN PRN Reason: Nausea and Vomiting Pantoprazole Sodium (Pantoprazole Sodium 40 Mg/10 Ml Vial) 40 mg IVPUSH BID@0630,1630 [facility] Last Admin: 04/02/24 05:56 Dose: 40 mg Documented By: GEOVANI-RIVLA Sodium Chloride (0.9 % Sodium Chloride Flush 3 Ml Syringe) 3 ml IVFLUSH QSHIFT [facility] Last Admin: 04/02/24 08:38 Dose: 3 ml Documented By: [facility] 04/02/24 05:59 04/01/24 03:56 Labs: Laboratory Results - last 24 hr 04/01/24 04/01/24 04/02/24 11:51 18:03 00:15 MCV 90.4 89.6 89.1 MCH 31.8 32.8 32.4 MCHC 35.2 36.6 H 36.4 H RDW 14.0 14.0 13.9 Plt Count 79 L 80 L 90 L MPV 10.2 9.8 10.2 Absolute Nucleated RBC 0.000 0.000 0.000 Nucleated RBC % (auto) 0.0 0.0 0.0 04/02/24 05:59 MCV 89.8 MCH 32.4 MCHC 36.1 H RDW 13.6 Plt Count 92 L MPV 10.5 Absolute Nucleated RBC 0.000 Nucleated RBC % (auto) 0.0 Assessment and Plan (1) Acute GI bleeding: Status: Acute Plan 89M PMH paroxysmal afib on xarelto, presented with hematochezia, due to hypotension and significant blood loss was monitored in ICU, received total 6 units prbc, did not undergo any IR or endocscopic intervention, hgb stabilized bleeding stopped, downgraded to medical floor Acute blood loss anemia complicated by hypotension and syncope due to diverticular bleed s/p 6 units prbc, 2 units ffp, 1 unit platelets, kcentra, vit K hgb now stable, continue to monitor, will advance diet to solids Paroxysmal atrial fibrillation Xarelto on hold for GI bleed DVT prophylaxis-mechanical due to GI bleed Full code reason for continued hospitalization: Ongoing GI bleed monitoring Quality Stroke Does the patient have a stroke diagnosis?: No VTE Prior VTE?: No VTE Risk Level:: Medical - moderate - high VTE Device Contraindication: N/A - Device Ordered VTE Drug Contraindication: Treatment Not Indicated
--- NOTE | 2024-04-02 10:40 | PC.NURSE ---
Addendum entered by Christine Chino RN 04/02/24 19:54: At 1050 patient back in the room Original Note: Patient off the unit for CT scan
[2024-04-02 11:33] VITALS: BP 138/76; PULSE 62; RESP 18; TEMP 36.4; O2SAT 100
[2024-04-02 16:00] VITALS: BP 100/59; PULSE 60; RESP 17; TEMP 36.3; O2SAT 100
[2024-04-02 20:00] VITALS: BP 102/57; PULSE 61; RESP 16; TEMP 36.5; O2SAT 100
[2024-04-03] VITALS: BP 118/65; PULSE 66; RESP 16; TEMP 37; O2SAT 95
[2024-04-03 04:00] VITALS: BP 120/66; PULSE 66; RESP 16; TEMP 36.4; O2SAT 100
[2024-04-03 06:00] VITALS: BMI 19.7
[2024-04-03 07:06] VITALS: BP 119/63; PULSE 89; RESP 18; TEMP 36.7; O2SAT 95
[2024-04-03 07:29] LABS: Hematocrit 23.3 % (42.0-52.0); Hemoglobin 8.3 g/dl (14.0-18.0); Mean Corpuscular HGB Conc 35.6 g/dl (31.0-36.0); Mean Corpuscular Hemoglobin 32.3 pg (27.0-33.0); Mean Corpuscular Volume 90.7 fL (80.0-98.0); Mean Platelet Volume 10.5 fL (9.4-12.4); Platelet Count 107 X10*3/uL (160-400); Red Blood Count 2.57 X10*6/uL (4.60-5.80); Red Cell Distribution Width 13.5 % (11.0-16.0); White Blood Count 6.6 X10*3/uL (4.8-10.8)
[2024-04-03 07:43] LABS: Anion Gap 11 (12-20); Blood Urea Nitrogen 14 mg/dL (9-16); Calcium 8.3 mg/dL (8.4-10.2); Carbon Dioxide 23 mmol/L (22-29); Chloride 109 mmol/L (96-108); Estimated Glomerular Filt Rate > 60; Glucose Fasting 96 mg/dL (60-99); Potassium 3.7 mmol/L (3.3-5.1); Sodium 139 mmol/L (135-145)
[2024-04-03] MEDS: 0.9 % Sodium Chloride Flush 3 ML SYRINGE IVFLUSH (08:22)
[2024-04-03] MEDS: Dronedarone HCl 400 MG TABLET PO (08:22)
--- NOTE | 2024-04-03 09:05 | PM.DS ---
DS: Providers Provider Date of Service: 04/03/24 Date of admission: 03/30/24 22:10 Primary care physician: Giancarlo Almendarez MD Consults: 03/30/24 23:29 Consult to Gastroenterology Routine Consulting Provider: Boone Elaine Reason for consultation: GI bleed DS: Diagnosis Discharge Diagnosis (1) Acute GI bleeding: Status: Acute DS: Summary Hospital Course Hospital Course: from initial hpi: 89-year-old male with pertinent history of permanent atrial fibrillation on Eliquis, osteopenia who presents to the emergency department for evaluation of GI bleed. Patient states he has had multiple episodes of bloody bowel movements throughout the day. Patient also had an episode where he got dizzy, lightheaded and passed out. Patient states that this happened about 3 years ago when he had bloody bowel movements. He denies fever, chills or abdominal pain. No vomiting or nausea. No chest discomfort, palpitations, shortness of breath, changes in urinary habits. Patient was initially noted to have a low blood pressure with systolic in the 90s. Blood pressure improved with IV crystalloids in the ER. Patient last took his Xarelto on the day of presentation. hospital course: Patient was admitted for acute blood loss anemia complicated by hypotension and syncope. This is due to left-sided diverticular bleed seen on CTA. He received a total of 6 units packed red blood cells, 2 units FFP, 1 unit platelets, Kcentra, vitamin K. His Xarelto was held. Hemoglobin dropped as low as 6.3, is now stable between 8 and 9 at time of discharge. Due to Xarelto and relative stability patient did not undergo vessel coiling, was monitored closely in ICU and given blood products, bleeding eventually subsided. Paroxysmal atrial fibrillation was continued on Multaq, diltiazem was initially held due to low blood pressures but can be restarted on discharge. Xarelto will continue to be held and exact timing of rechallenging with anticoagulation can be decided with Gastroenterology and Cardiology as outpatient. Patient is feeling better will be discharged home. Time Attestation Discharge Coordination Time (in mins): 32 Quality: Safe Use of Opioids Does Pt have an Active Cancer Diagnosis on the Problem List?: No Quality: Stroke Does the patient have a stroke diagnosis?: No Physical Exam Vital Signs: Vital Signs: Last Vital Signs Temp 98.0 F 04/03/24 07:06 Pulse 89 04/03/24 07:06 Resp 18 04/03/24 07:06 BP 119/63 04/03/24 07:06 Pulse Ox 95 04/03/24 07:06 O2 Del Method Room Air 04/03/24 07:06 BMI result Body Mass Index 19.7 General: Not in acute distress, calm appearing Nutritional Appearance: Okay nourished for his age and under weight Eyes: appearance normal, both eyes and all related structures; Alignment and Position: alignment normal and position normal Neck: No lymphadenopathy, no thyromegaly Resp: bilateral air entry equal, occasional added sounds present Cardio: Regular rate, regular rhythm; Heart sounds: S1 normal heart sound present and S2 normal heart sound present GI: soft, nontender, no guarding, no hepatosplenomegaly : bladder normal to inspection, bladder normal to palpation, no renal angle tenderness Skin: no rashes or lesions noted and elasticity normal Neuro: oriented to person, oriented to place, oriented to time and moves all extremities DS: Data Data Completed and Pending Labs on day of discharge: Laboratory Results - last 24 hr 04/03/24 07:21 WBC 6.6 RBC 2.57 L Hgb 8.3 L Hct 23.3 L MCV 90.7 MCH 32.3 MCHC 35.6 RDW 13.5 Plt Count 107 L MPV 10.5 Absolute Nucleated RBC 0.000 Nucleated RBC % (auto) 0.0 Sodium 139 Potassium 3.7 Chloride 109 H Carbon Dioxide 23 Anion Gap 11 L BUN 14 Creatinine 1.01 Estim Creat Clear Calc 45.0 Estimated GFR > 60 Fasting Glucose 96 Calcium 8.3 L D Discharge Plan Discharge Anticipated Discharge Date/Time: 04/03/24 09:03 Patient Disposition: Home, Self-Care Discharge Diagnosis: diverticular bleed Referrals: Giancarlo Almendarez MD [Primary Care Provider] - 1 Week Discharge Medications: Continued Multaq 400 mg tablet 400 mg PO BID 30 Days Qty: 60 2RF diltiazem HCl [Cardizem] 30 mg tablet 30 mg PO BID Qty: 60 2RF calcium carbonate [Calcium 600] 600 mg calcium (1,500 mg) Tablet 600 mg PO BID multivitamin Tablet 1 tab PO DAILY alendronate 70 mg tablet 70 mg PO SANTANA desoximetasone 0.25 % cream 1 appl topical DAILY PRN (Reason: itchiness) PreserVision AREDS [id number] capsule 1 cap PO BID Discontinued Xarelto 20 mg tablet 20 mg PO BEDTIME@1830 Rx Instructions: with a meal!!! Diet: Advance to usual diet Activity on Discharge: As tolerated Stand Alone Forms: Patient Portal Discharge page Print Language: [place] African Care Plan Goals: manage diverticulosis Health Concerns: diverticulosis and severe gi bleed, also with afib and need for anticoagulation Plan of Treatment: stop xarelto for now, follow up with GI and cardiology to decide on timing of rechallenging with anticoagulation Assessment: see above
[2024-04-03 11:48] VITALS: BP 123/64; PULSE 54; RESP 18; TEMP 36.5; O2SAT 98
--- NOTE | 2024-04-03 11:55 | MHC.CM.PN ---
Second IMM given 04/03. Pt is medically cleared for discharge home self-care, pts or son will transport him home.
== END 2024-04-03 14:03 | disposition home or self-care (01) | DRG 378 ==
LOC: HO.ED 23:18 → HO.EDOVER 03-31 04:18 → HO.IMC 03-31 07:59 → HO.ICU 03-31 18:03 → HO.IMC 04-01 19:36
PROVIDERS: Internal Medicine Critical Care Medicine; Physician Assistant Medical; Student in an Organized Health Care Education/Training Program; Admitting Provider Student in an Organized Health Care Education/Training Program; Emergency Provider Emergency Medicine Emergency Medical Services; PCP Internal Medicine; Visit Provider Internal Medicine
DX: K57.31 Diverticulosis of large intestine without perforation or abscess with bleeding (principal); D62 Acute posthemorrhagic anemia; I48.21 Permanent atrial fibrillation; I95.1 Orthostatic hypotension; M85.80 Other specified disorders of bone density and structure, unspecified site; Z87.891 Personal history of nicotine dependence; Z79.01 Long term (current) use of anticoagulants; Z79.899 Other long term (current) drug therapy
CPT/HCPCS: 36415; 71250; 74176; 74178; 80048; 80053; 82272; 85014; 85018; 85025; 85027; 85610; 86850; 86900; 86901; 86923; 92950; 93005; 99285; C1758; J2470; J3430; J7120; J7168; P9016; P9017; P9047; P9073; Q9967

== ENCOUNTER → 2024-03-30 20:55 | Outpatient (BNV) | payer MEDICARE, SELFPAY | PROVIDERS: Admitting Provider Student in an Organized Health Care Education/Training Program; Emergency Provider Emergency Medicine Emergency Medical Services; PCP Internal Medicine; Visit Provider Internal Medicine Cardiovascular Disease | DX: R55 Syncope and collapse (principal) | CPT/HCPCS: 93010 ==

== ENCOUNTER → 2024-03-30 21:22 | Outpatient (BNV) | payer MEDICARE, SELFPAY | PROVIDERS: Emergency Provider Emergency Medicine Emergency Medical Services; PCP Internal Medicine; Visit Provider Student in an Organized Health Care Education/Training Program | DX: K92.2 Gastrointestinal hemorrhage, unspecified (principal); D62 Acute posthemorrhagic anemia; R55 Syncope and collapse; I48.21 Permanent atrial fibrillation | CPT/HCPCS: 99223; 99232; 99233; 99239 ==

== ENCOUNTER → 2024-03-30 22:10 | Outpatient (BNV) | payer MEDICARE, SELFPAY | PROVIDERS: Admitting Provider Student in an Organized Health Care Education/Training Program; Emergency Provider Emergency Medicine Emergency Medical Services; PCP Internal Medicine; Visit Provider Physician Assistant Surgical | DX: K92.2 Gastrointestinal hemorrhage, unspecified (principal); Z79.01 Long term (current) use of anticoagulants; I48.0 Paroxysmal atrial fibrillation | CPT/HCPCS: 99221 ==

== ENCOUNTER → 2024-03-30 22:10 | Outpatient (BNV) | payer MEDICARE, SELFPAY | PROVIDERS: Admitting Provider Student in an Organized Health Care Education/Training Program; Emergency Provider Emergency Medicine Emergency Medical Services; PCP Internal Medicine; Visit Provider Internal Medicine Critical Care Medicine | DX: J84.9 Interstitial pulmonary disease, unspecified (principal); I48.19 Other persistent atrial fibrillation; K92.2 Gastrointestinal hemorrhage, unspecified; I95.9 Hypotension, unspecified; R05.9 Cough, unspecified | CPT/HCPCS: 99222; 99291 ==

== ENCOUNTER 2024-05-24 10:40 | Outpatient (AMB) | payer MEDICARE, SELFPAY ==
--- NOTE | 2024-05-24 10:54 | A.OFFVIS_ITS ---
Vital Signs 05/24/24 10:56 Height 5 ft 11 in Weight 141 lb 1.533 oz BMI 19.7 BP 116/72 Blood Pressure Location Lt brachial Position Sitting Pulse 66 Intake Visit Reasons: 6 month follow up Intake Note: 6 month follow-up with ekg feeling ok [employer] Required: No Allergies midodrine Allergy (Intermediate, Verified 03/30/24 21:16) Itchy red rash head to toe metoprolol Adverse Reaction (Verified 03/30/24 21:16) Unknown novacain Allergy (Unknown, Uncoded 03/30/24 21:16) syncope Medication List - Last Reconciled 05/24/24 by Mateo Prado MD alendronate 70 mg PO SANTANA ascorbate calcium (vitamin C) 500 mg PO DAILY calcium carbonate (Calcium 600) 600 mg PO BID desoximetasone 0.25% 1 appl topical DAILY PRN diltiazem HCl (Cardizem) 30 mg PO BID dronedarone (Multaq) 400 mg PO BID 30 days ferrous sulfate 325 mg PO DAILY multivitamin 1 tab PO DAILY vitamins A,C,D-cpdq-deiatn 4,296 mcg-226 mg-90 mg (PreserVision AREDS) 1 cap PO BID HPI Comments Details: Bill comes for follow-up. Recently admitted with significant lower GI bleed related to diverticular bleed. Was seen by GI. Has not been restarted on oral anticoagulation therapy. Patient has had no recurrent GI bleeding. Has had intermittent episodes of atrial fibrillation, brief episodes. Symptoms as sociated with lightheadedness. Although he had lightheadedness other time. Blood pressure recordings at home shows variable blood pressure with some blood pressures elevated above 160 systolic. Denies any chest pain. No heart failure symptoms. Taking all his medications currently. [facility] Medical History Osteopenia Enlarged thoracic aorta Paroxysmal atrial fibrillation Surgical History Hx of prostate biopsy Hx of cataract surgery Hx of hernia repair Hx of appendectomy Hx of basal cell carcinoma excision Hx of colonoscopy Family History Father Throat cancer Mother Parkinson disease Social History Household Members: Spouse Housing: House Do you presently have visiting nurse or other home services: No Alcohol intake: never Comment: PT REFUSE BED ALARM Patient Tobacco Use Status: Former Tobacco user service: No Current occupational status: retired Review of Systems Const Denies chills, Denies fatigue, Denies fever(s), Denies frequent falls, Denies weakness, Denies weight gain and Denies weight loss ENT Denies dizziness Card Denies chest pain, Denies leg edema, Denies lightheadedness, Denies palpitations, Denies dyspnea, Denies dyspnea on exertion, Denies orthopnea and Denies other (loss of consciousness) Resp Denies cough, Denies dyspnea and Denies dyspnea on exertion GI Denies hematochezia and Denies change in stool character Musc Denies abnormal gait, Denies muscle weakness, Denies numbness, Denies radiating pain into limb and Denies tingling Neuro Denies abnormal gait, Denies dizziness, Denies frequent falls, Denies numbness, Denies tingling and Denies weakness Endo Denies fatigue and Denies palpitations Physical Exam Vital Signs: Last Vital Signs Pulse 66 05/24/24 10:56 BP 116/72 05/24/24 10:56 BMI result Body Mass Index 19.7 Const General: healthy appearing (Except for a thin build, and underweight.), comfortable, no acute distress, alert and awake Orientation/consciousness: patient oriented x3 HEENT Head: Yes normal to inspection General nose exam: No nasal polyps present, No nasal discharge present and Other nasal findings present (Has mild nasal congestion on both sides) Face and sinus: Yes sinuses nontender Mouth: oropharynx normal Throat: Yes posterior oropharynx normal Eyes General: appearance normal, both eyes and all related structures Neck Neck: Yes normal visual inspection, Yes no lymphadenopathy, Yes trachea midline and Yes no JVD Thyroid: Thyroid normal Chest Chest palpation & inspection: normal inspection of the chest, normal palpation of entire chest wall and no tenderness Resp Other: Percussion note resonant, has good equal breath sounds on both sides. There are NO inspiratory crepitations over basilar areas, AND NO WHEEZES . Cardio Palpation: normal PMI Rate: tachycardic Rhythm: abnormal rhythm regularly irregular Heart sounds: S1 normal heart sound present, S2 normal heart sound present, no gallops and no murmurs Peripheral pulses: Peripheral pulses 2+ throughout GI Palpation (GI): Soft to palpation, nontender, No hepatosplenomegaly present and no masses Auscultation: normal bowel sounds Back/Spine/Pelvis Thoracic/Lumbar Spine: thoracic and lumbar spine normal to inspection Skin General skin exam: no rashes or lesions noted Neuro General: patient oriented x3 and no focal motor deficits Cranial nerves: Yes CN's II-XII intact bilaterally Extrem General: Yes normal to inspection, Yes no clubbing, cyanosis or edema and Yes no calf tenderness Psych Appearance: grossly normal and well kempt Speech and movement: Normal speech and movement present Office Procedures EKG Details: EKG shows normal sinus rhythm with QS pattern in lead V1 V2 otherwise normal EKG with normal QT interval [id number]-[id number], Complete Assessment & Plan Assessment & Plan (1) Paroxysmal atrial fibrillation: Comment: BEING TR CONTROLLED WITH THE LOW DOES BETA EUNICE ALSO HE IS ON ANTICOAGULATION. Code(s): I48.0 - Paroxysmal atrial fibrillation Category: Medical Plan: Paroxysmal atrial fibrillation currently on Cardizem and Multaq therapy. Predominantly remains in sinus rhythm with brief intermittent episodes of atrial fibrillation. The symptomatic although they are infrequent. At this point time will continue current therapy and avoid change in therapy. He has had side effect with amiodarone therapy with interstitial lung disease. At this point time if he continues to have recurrent frequent episodes of atrial fibrillation can consider switching to an alternative therapy such as sotalol or Tikosyn which will require inpatient initiation. This was discussed with him. Although this is not necessary. Recent major GI bleed that led to syncope and multiple units of blood transfusion with source being diverticular bleed which is likely to cause bleeding again. Will refer him for consideration for Watchman device placement. This was discussed with him. Literature was provided with him. Advised to follow-up with GI next week to see if he can be started on oral anticoagulation therapy. 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 No interventions required at this point in time. Continue monitor by echocardiogram on annual basis. Blood pressure currently is labile but adequately controlled. Would avoid any therapy at this point time. Will follow up in the clinic in 6 months time, sooner p.r.n.. Thank you for allowing me to partake in his care Coding Level of Care Code Est Pt Level 4 (07037) Diagnoses Paroxysmal atrial fibrillation I48.0 Enlarged thoracic aorta I77.89 CPT Codes EKG - CPT: 19128-[id number], Complete ([id number])
[2024-05-24 10:56] VITALS: BP 116/72; PULSE 66; BMI 19.7
== END 2024-05-24 11:23 | disposition home or self-care (01) ==
PROVIDERS: PCP Internal Medicine; Visit Provider Internal Medicine Cardiovascular Disease
DX: I48.0 Paroxysmal atrial fibrillation (principal); I77.89 Other specified disorders of arteries and arterioles
CPT/HCPCS: 93010; 99214

== ENCOUNTER → 2024-05-24 10:40 | Outpatient (BNVA) | payer MEDICARE, SELFPAY | PROVIDERS: PCP Internal Medicine; Visit Provider Internal Medicine Cardiovascular Disease | DX: I48.0 Paroxysmal atrial fibrillation (principal); I77.89 Other specified disorders of arteries and arterioles | CPT/HCPCS: 93005; 99212 ==

== ENCOUNTER 2024-07-09 19:08 | Inpatient (IN) | payer MEDICARE, SELFPAY ==
--- NOTE | ~2024-07-09 | CT_ITS ---
EXAMINATION: CT ABDOMEN AND PELVIS WITH AND WITHOUT CONTRAST: CT GI BLEEDING STUDY CLINICAL INFORMATION: Lower GI bleed. COMPARISON: No pertinent prior studies are available for comparison. TECHNIQUE: Multidetector volumetric imaging was performed from the lung bases to the pubic symphysis before and after the administration of: Intravenous contrast: 80 mL Omnipaque 350 No contrast reaction reported MIP coronal, sagittal and coronal reformatted images were obtained on the technologist workstation. This CT examination was performed using dose optimization techniques as appropriate, variously including the following: *Automated exposure control *Adjustment of mA and/or kV according to patient size (this includes techniques or standardized protocols for targeted exams where dose is matched to indication/reason for exam; i.e. extremities or head) *Use of iterative reconstruction technique Total exam dose-length product 980 mGy-cm FINDINGS: STOMACH: No abnormal wall thickening or mass. No intraluminal contrast accumulation to suggest hemorrhage. SMALL BOWEL: No abnormal wall thickening or dilation. No intraluminal contrast accumulation to suggest hemorrhage. COLON: There is active extravasation in the mid ascending colon at the same location that was seen on the prior GI bleed study from 10/01/2023. Colonic diverticula are present this region. There is no evidence of diverticulitis Although the appendix is not definitely seen, there are no right lower quadrant inflammatory changes to suggest acute appendicitis. The rectum is distended with stool measuring 8.3 cm without evidence of stercoral colitis. LUNG BASES: No nodules, mass, or focal consolidation. PLEURA: No pleural effusion. LIVER, GALLBLADDER, AND BILIARY TREE: The liver is normal in size, shape, and attenuation. No focal hepatic lesion or biliary ductal dilatation is present. Again seen is cholelithiasis without cholecystitis PANCREAS: Normal; no mass or surrounding fluid. SPLEEN: Normal size. No focal lesion. ADRENAL GLANDS: Normal; no mass. KIDNEYS AND URETERS: The kidneys are normal in size, shape, and attenuation. No hydronephrosis, hydroureter, or calculi. Bilateral benign Bosniak class I renal cysts are noted which require no additional imaging or follow-up. No solid renal masses are seen. ABDOMINAL WALL: No hernia seen. LYMPHOVASCULAR STRUCTURES: No lymphadenopathy. The aorta is normal in caliber. BLADDER: No focal mass or wall thickening seen. No bladder calculi. PELVIC VISCERA: Unremarkable. OSSEOUS STRUCTURES: Degenerative changes are noted throughout the spine. No acute or suspicious osseous abnormality. CT/CT gi bleed abd pel wo/w IVcon IMPRESSION: 1. Active GI bleed in the mid descending colon at the same location as the prior study. 2. Incidental note made of cholelithiasis without cholecystitis, benign Bosniak class I renal cysts which need no additional imaging or follow-up, and degenerative changes in the spine. Electronically signed by: Mando Herrera MD 07/10/2024 12:24 AM EDT
--- NOTE | 2024-07-09 19:10 | ED.GIBLEED ---
HPI - GI Bleed General Stated complaint: blood in stool Related Data Home Medications ?Medication ?Instructions ?Recorded ?Confirmed alendronate 70 mg tablet 70 mg PO SANTANA 08/21/20 05/24/24 calcium carbonate (Calcium 600) 600 mg PO BID 05/23/21 05/24/24 desoximetasone 0.25 % topical cream 1 appl topical DAILY PRN itchiness 01/27/22 05/24/24 vitamins A,C,D-flzo-muylrq 4,296 1 cap PO BID 05/19/22 05/24/24 mcg-226 mg-90 mg capsule (PreserVision AREDS) multivitamin 1 tab PO DAILY 03/31/24 05/24/24 ascorbate calcium (vitamin C) 500 500 mg PO DAILY 05/24/24 05/24/24 mg tablet ferrous sulfate 325 mg (65 mg 325 mg PO DAILY 05/24/24 05/24/24 iron) tablet,delayed release Previous Rx's ?Medication ?Instructions ?Recorded dronedarone 400 mg tablet (Multaq) 400 mg PO BID 30 days #60 tabs 04/17/24 diltiazem HCl 30 mg tablet 30 mg PO BID #60 tabs 06/22/24 Allergies Allergy/AdvReac Type Severity Reaction Status Date / Time midodrine Allergy Intermediate Itchy red Verified 03/30/24 21:16 rash head to toe metoprolol AdvReac Unknown Verified 03/30/24 21:16 novacain Allergy Unknown syncope Uncoded 03/30/24 21:16 [facility] Past Medical History Medical History Osteopenia Enlarged thoracic aorta Paroxysmal atrial fibrillation Surgical History Hx of prostate biopsy Hx of cataract surgery Hx of hernia repair Hx of appendectomy Hx of basal cell carcinoma excision Hx of colonoscopy Family History Family History Father Throat cancer Mother Parkinson disease Social History Social History Household Members: Spouse Housing: House Do you presently have visiting nurse or other home services: No Alcohol intake: never Comment: PT REFUSE BED ALARM Patient Tobacco Use Status: Former Tobacco user service: No Current occupational status: retired Course Course Course Narrative: This is a rapid medical exam. Defer HPI, ROS, PE to primary provider. 89-year-old male with history of AFib who is currently anticoagulated (stopped xarelto 06/28 and switched to plavix and aspirin) here with complaints of rectal bleeding today and lower abdominal cramping. 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 Discharge Plan Discharge Prescriptions: No Action Multaq 400 mg tablet 400 mg PO BID 30 Days Qty: 60 2RF diltiazem HCl 30 mg tablet 30 mg PO BID Qty: 60 5RF calcium carbonate [Calcium 600] 600 mg calcium (1,500 mg) Tablet 600 mg PO BID multivitamin Tablet 1 tab PO DAILY alendronate 70 mg tablet 70 mg PO SANTANA desoximetasone 0.25 % cream 1 appl topical DAILY PRN (Reason: itchiness) PreserVision AREDS [id number] arvt-rj-fzki capsule 1 cap PO BID ascorbate calcium (vitamin C) 500 mg tablet 500 mg PO DAILY ferrous sulfate 325 mg (65 mg iron) tablet,delayed release (DR/EC) 325 mg PO DAILY Print Language: Emirati
--- NOTE | 2024-07-09 19:12 | ECG_ITS ---
Test Reason : WEAKNESS Blood Pressure : / mmHG Vent. Rate : 066 BPM Atrial Rate : 066 BPM P-R Int : 192 ms QRS Dur : 070 ms QT Int : 392 ms P-R-T Axes : 027 002 027 degrees QTc Int : 410 ms Normal sinus rhythm Normal ECG When compared with ECG of 30-MAR-2024 21:31, No significant change was found Referred By: Jazz Gomez Electronically Signed By:KASHIF RAMOS
[2024-07-09 19:14] VITALS: BP 149/77; PULSE 74; RESP 18; TEMP 36.5; O2SAT 97; BMI 20.8
[2024-07-09 19:36] LABS: MANUAL DIFF FLAG NO
[2024-07-09 19:37] LABS: Basophils Percent Auto 0.6 % (0-2); Eosinophils Absolute Auto 0.3 X10*3/uL (0.0-0.4); Eosinophils Percent Auto 3.8 % (0-4); Hemoglobin 11.9 g/dl (14.0-18.0); Imm Gran Abs Auto 0.02 X10*3/uL (0.00-0.03); Imm Gran Pct Auto 0.3 % (0.0-0.4); Lymphocytes Absolute Auto 1.3 X10*3/uL (1.2-4.9); Lymphocytes Percent Auto 18.5 % (20-40); Mean Corpuscular HGB Conc 33.1 g/dl (31.0-36.0); Mean Corpuscular Hemoglobin 29.9 pg (27.0-33.0); Mean Corpuscular Volume 90.5 fL (80.0-98.0); Mean Platelet Volume 9.3 fL (9.4-12.4); Monocytes Absolute Auto 0.7 X10*3/uL (0.1-1.2); Monocytes Percent Auto 10.1 % (2-11); Neutrophils Absolute Auto 4.6 x10*3/uL (2.0-8.3); Neutrophils Percent Auto 66.7 % (45-73); Platelet Count 179 X10*3/uL (160-400); Red Blood Count 3.98 X10*6/uL (4.60-5.80); Red Cell Distribution Width 12.5 % (11.0-16.0); White Blood Count 6.9 X10*3/uL (4.8-10.8)
[2024-07-09 19:43] LABS: Prothrombin Time 11.5 SEC (10.9-12.4)
[2024-07-09 19:52] LABS: Alanine Aminotransferase 21 U/L (0-40); Albumin Level 4.1 g/dL (3.5-5.0); Alkaline Phosphatase 50 U/L (39-117); Anion Gap 11 (12-20); Aspartate Amino Transferase 23 U/L (5-37); Bilirubin Direct 0.1 mg/dL (0.0-0.5); Bilirubin Total 0.4 mg/dL (0.0-1.0); Blood Urea Nitrogen 32 mg/dL (9-16); Calcium 8.9 mg/dL (8.4-10.2); Carbon Dioxide 25 mmol/L (22-29); Chloride 103 mmol/L (96-108); Estimated Glomerular Filt Rate 52; Glucose Random 103 mg/dL (60-115); Potassium 3.9 mmol/L (3.3-5.1); Sodium 135 mmol/L (135-145); Total Protein 6.6 g/dL (6.5-8.0)
--- NOTE | 2024-07-09 19:58 | PC.NURSE ---
pt ambulated with steady gait from waiting room. pt a&ox4, respirations even and unlabored, vss. pt reports observing jorge luis red blood with small amount of stool at 1800 and passing a few small clots while in ED waiting room. pt reports feeling lightheaded 'more than usual' and slight sob. pt denies chest pain at this time. 18g placed in left forearm. pt is normal sinus.
--- NOTE | 2024-07-09 20:16 | PC.NURSE ---
at bedside with dr. shah to perform rectal exam. pt noted to have blood around anus, stool occults not sent at this time.
--- NOTE | 2024-07-09 20:37 | ED_ITS ---
HPI - GI Bleed General Chief complaint: GI Bleed Stated complaint: blood in stool Time Seen by Provider: 07/09/24 19:53 Source: patient Mode of arrival: ambulatory Limitations: no limitations History of Present Illness ED Provider: brionna CASTRO Narrative: Patient's history of AFib on aspirin started on clopidogrel on 06/29 with history of GI bleed in 04/05 when patient is taking Xarelto was admitted here at that time and received multiple blood transfusion hemoglobin of 6.3 was doing well since then just prior to arrival patient went to bathroom and moved his bowel which was maroon color with some blood clot with slight lower abdomen discomfort no dizziness no passing out episode past small clot again while in the triage Related Data Home Medications ?Medication ?Instructions ?Recorded ?Confirmed alendronate 70 mg tablet 70 mg PO SANTANA 08/21/20 05/24/24 calcium carbonate (Calcium 600) 600 mg PO BID 05/23/21 05/24/24 desoximetasone 0.25 % topical cream 1 appl topical DAILY PRN itchiness 01/27/22 05/24/24 vitamins A,C,Q-gkgt-ebuwwi 4,296 1 cap PO BID 05/19/22 05/24/24 mcg-226 mg-90 mg capsule (PreserVision AREDS) multivitamin 1 tab PO DAILY 03/31/24 05/24/24 ascorbate calcium (vitamin C) 500 500 mg PO DAILY 05/24/24 05/24/24 mg tablet ferrous sulfate 325 mg (65 mg 325 mg PO DAILY 05/24/24 05/24/24 iron) tablet,delayed release Previous Rx's ?Medication ?Instructions ?Recorded dronedarone 400 mg tablet (Multaq) 400 mg PO BID 30 days #60 tabs 04/17/24 diltiazem HCl 30 mg tablet 30 mg PO BID #60 tabs 06/22/24 Allergies Allergy/AdvReac Type Severity Reaction Status Date / Time midodrine Allergy Intermediate Itchy red Verified 07/09/24 19:16 rash head to toe metoprolol AdvReac Unknown Verified 07/09/24 19:16 novacain Allergy Unknown syncope Uncoded 03/30/24 21:16 Review of Systems 2 Review of Systems: Yes all other systems are reviewed and are negative PMFSH Past Medical History Medical History Osteopenia Enlarged thoracic aorta Paroxysmal atrial fibrillation Surgical History Hx of prostate biopsy Hx of cataract surgery Hx of hernia repair Hx of appendectomy Hx of basal cell carcinoma excision Hx of colonoscopy Family History Family History Father Throat cancer Mother Parkinson disease Social History Social History Household Members: Spouse Housing: House Do you presently have visiting nurse or other home services: No Alcohol intake: never Comment: PT REFUSE BED ALARM Patient Tobacco Use Status: Former Tobacco user Smoked in Last 30 Days: No Use of substances other than those prescribed or required for medical reasons: No Advance Directives: No Advance Directives Information Provided: No service: No Current occupational status: retired Physical Exam 2 Vital Signs: Vital Signs: Last Vital Signs Temp 98.9 F 07/10/24 01:02 Pulse 56 07/10/24 01:02 Resp 18 07/10/24 01:02 BP 116/64 07/10/24 01:02 Pulse Ox 98 07/10/24 01:02 O2 Del Method Room Air 07/10/24 01:02 BMI result Body Mass Index 20.8 Appearance: Alert. Oriented X3. No acute distress. Eyes: + pallor ENT: Pharynx normal. Oral Mucosa moist Neck: Normal inspection. Neck supple. CVS: Normal heart rate and rhythm. Pulses normal. Respiratory: No respiratory distress. Equal air entry bilateral, no wheezing/rales/rhonchi Abdomen: Soft and nontender. Bowel sounds are present, no mass palpable, no CVA tenderness rectal: Blood at the anus++ Skin: Skin warm and dry. Normal skin color. Normal skin turgor. Extremities: No lower extremity edema. No calf tenderness Neuro: Oriented X 3. No motor deficit. Medications Administered Generic Name Dose Route Start Last Admin Trade Name Freq PRN Reason Stop Dose Admin Sodium Chloride 3 ml 07/10/24 00:00 07/10/24 00:01 0.9 % Sodium Chloride Flush 3 Ml Syringe IVFLUSH Not Given QSHIFT MARILY Discontinued Medications Generic Name Dose Route Start Last Admin Trade Name Freq PRN Reason Stop Dose Admin Lactated Ringer's 1,000 mls @ 999 mls/hr 07/09/24 22:15 07/10/24 00:20 Lr IV 07/09/24 23:15 Infused .Q1H1M MARILY Infusion Iohexol 80 ml 07/09/24 22:53 07/09/24 22:53 Iohexol 350 Mg/Ml 100 Ml Infus..Btl IV 07/09/24 22:54 80 ml ONCE ONE Administration Pantoprazole Sodium 40 mg 07/09/24 22:05 07/09/24 22:25 Pantoprazole Sodium 40 Mg/10 Ml Vial IVPUSH 40 mg BID@0630,1630 [facility] Administration Medical Decision Making Medical Decision Making MDM Narrative: Patient with active lower GI bleed on clopidogrel and aspirin CT bleeding scan positive for active GI bleed in the mid descending colon. Patient is a 3 bowel movements so far since 18:00 last 1 was at 12:45 with good amount of maroon-colored blood H&H at 19:30 was 11.9/36 repeat at 00:38 was 9.6/28.7 patient's baseline hemoglobin is around 13 in 03/[address] Valencia advised patient is transferred to higher acuity center for IR Case discussed Dr. Malik at [facility] accepted the patient for transfer to be in the ER Dr. Polanco accepted the patient Differential Diagnosis Differential Diagnoses: The differential diagnosis associated with the presentation includes Admission/Observation Consideration of admission/observation: Escalation of care including admission/observation considered Lab Data [facility] Lab Attestation statement: I reviewed the patient's lab results. 07/10/24 00:38 07/09/24 19:30 Labs: Lab Results 07/09/24 07/09/24 Range/Units 19:30 19:31 WBC 6.9 (4.8-10.8) X10*3/uL RBC 3.98 L D (4.60-5.80) X10*6/uL Hgb 11.9 L D (14.0-18.0) g/dl Hct 36.0 L D (42.0-52.0) % MCV 90.5 (80.0-98.0) fL MCH 29.9 (27.0-33.0) pg MCHC 33.1 (31.0-36.0) g/dl RDW 12.5 (11.0-16.0) % Plt Count 179 D (160-400) X10*3/uL MPV 9.3 L (9.4-12.4) fL Immature Gran % (Auto) 0.3 (0.0-0.4) % Neut % (Auto) 66.7 (45-73) % Lymph % (Auto) 18.5 L (20-40) % [place] % (Auto) 10.1 (2-11) % Eos % (Auto) 3.8 (0-4) % Baso % (Auto) 0.6 (0-2) % Lymph # (Auto) 1.3 (1.2-4.9) X10*3/uL [place] # (Auto) 0.7 (0.1-1.2) X10*3/uL Eos # (Auto) 0.3 (0.0-0.4) X10*3/uL Baso # (Auto) 0.0 (0.0-0.2) X10*3/uL Abs Immat Gran (auto) 0.02 (0.00-0.03) X10*3/uL Absolute Neuts (auto) 4.6 (2.0-8.3) x10*3/uL Absolute Nucleated RBC 0.000 (0.0-0.012) X10*3/uL Nucleated RBC % (auto) 0.0 (0.0-0.2) /100WBC PT 11.5 (10.9-12.4) SEC INR 1.0 (0.9-1.1) Sodium 135 (135-145) mmol/L Potassium 3.9 (3.3-5.1) mmol/L Chloride 103 (96-108) mmol/L Carbon Dioxide 25 (22-29) mmol/L Anion Gap 11 L (12-20) BUN 32 H (9-16) mg/dL Creatinine 1.29 (0.5-1.4) mg/dL Estim Creat Clear Calc 36.0 Estimated GFR 52 Random Glucose 103 (60-115) mg/dL Calcium 8.9 D (8.4-10.2) mg/dL Total Bilirubin 0.4 (0.0-1.0) mg/dL Direct Bilirubin 0.1 (0.0-0.5) mg/dL AST 23 (5-37) U/L ALT 21 (0-40) U/L Alkaline Phosphatase 50 (39-117) U/L Total Protein 6.6 (6.5-8.0) g/dL Albumin 4.1 (3.5-5.0) g/dL Blood Type A Negative Antibody Screen NEGATIVE Independent Interpretation I performed an independent interpretation of an: EKG and CT Scan Interpretation: Normal sinus rhythm heart rate 66 beats per minute normal interval normal axis no acute STT wave changes no acute ischemia Radiology Impression Discussion of test interpretation with radiology: I have reviewed the radiologist's reading. Radiologist Impression: CT/CT abdomen pelvis wo IV con IMPRESSION: 1. No acute intra-abdominal process seen. 2. Colonic diverticulosis without diverticulitis. 3. Significant distended urinary bladder secondary to moderate prostate enlargement. Needs Guerra's catheter. 4. Small right pleural effusion. Fleischner guidelines were followed. Electronically signed by: Pop Benito MD 07/09/2024 08:13 PM EDT Critical Care Time Critical Care Time Critical Care Time: Yes Total Critical Care Time: 60 Attestation: The patient was critically ill with a high probability of imminent or life threatening deterioration. I spent greater than ?65??minutes of discontinuous time evaluating the patient,delivering critical care at the bedside, discussing and evaluating pertinent data with consultants. Critical care time does not include time spent performing separately billable procedures or teaching. Total time spent performing critical care was 60???minutes. Discharge Plan Discharge Clinical Impression: Lower gastrointestinal hemorrhage, Hematochezia Patient Disposition: [facility] Transfer Details: [facility] ED Dr. Polanco
[2024-07-09 21:05] VITALS: BP 116/68; PULSE 60; RESP 15; TEMP 36.7; O2SAT 98
--- NOTE | 2024-07-09 22:19 | PM.IMHP ---
History of Present Illness Date of Service: 07/09/24 Chief Complaint: Blood in stool This is a 89-year-old male with pertinent history of permanent atrial fibrillation not on anticoagulation, osteopenia who presents to the emergency department for evaluation of GI bleed. Patient states he 1st noticed blood in stool on the evening of presentation. It was painless. No nausea or vomiting. No abdominal discomfort. Patient had another episode of bright red blood in stool in the ER. He is currently not on Eliquis. Patient recently started taking Plavix about 10 days ago. He is on aspirin as well. Patient was admitted in March, for diverticular bleed and required multiple blood transfusions. He denies fever, chills. No vomiting or nausea. No chest discomfort, palpitations, shortness of breath, changes in urinary habits. Patient last took his Plavix on 07/08 In the emergency department, patient resuscitated with IV crystalloids. Review of Systems Constitutional: Constitutional: Reports no additional constitutional complaints Cardiovascular: Cardiovascular: Reports no additional cardiovascular complaints Respiratory: Respiratory: Reports no additional respiratory complaints Gastrointestinal: Gastrointestinal: Reports hematochezia Genitourinary: Genitourinary: Reports no additional male genitourinary complaints [facility] Medical History Osteopenia Enlarged thoracic aorta Paroxysmal atrial fibrillation Family History Father Throat cancer Mother Parkinson disease Surgical History Hx of prostate biopsy Hx of cataract surgery Hx of hernia repair Hx of appendectomy Hx of basal cell carcinoma excision Hx of colonoscopy Social History Household Members: Spouse Housing: House Do you presently have visiting nurse or other home services: No Alcohol intake: never Comment: PT REFUSE BED ALARM Patient Tobacco Use Status: Former Tobacco user Smoked in Last 30 Days: No Use of substances other than those prescribed or required for medical reasons: No Advance Directives: No Advance Directives Information Provided: No service: No Current occupational status: retired Meds Allergies Allergy/AdvReac Type Severity Reaction Status Date / Time midodrine Allergy Intermediate Itchy red Verified 07/09/24 19:16 rash head to toe metoprolol AdvReac Unknown Verified 07/09/24 19:16 novacain Allergy Unknown syncope Uncoded 03/30/24 21:16 Active Medications: Current Medications Lactated Ringer's (Lr) 1,000 mls @ 999 mls/hr IV .Q1H1M [facility] Stop: 07/09/24 23:15 Pantoprazole Sodium (Pantoprazole Sodium 40 Mg/10 Ml Vial) 40 mg IVPUSH BID@0630,1630 [facility] Home Medications ?Medication ?Instructions ?Recorded ?Confirmed ?Last Taken ?Type alendronate 70 mg tablet 70 mg PO SANTANA 08/21/20 05/24/24 03/26/24 History calcium carbonate (Calcium 600) 600 mg PO BID 05/23/21 05/24/24 03/30/24 18:00 History desoximetasone 0.25 % topical cream 1 appl topical DAILY PRN itchiness 01/27/22 05/24/24 03/30/24 18:00 History vitamins A,C,K-yepo-oiozkh 4,296 1 cap PO BID 05/19/22 05/24/24 03/30/24 18:00 History mcg-226 mg-90 mg capsule (PreserVision AREDS) multivitamin 1 tab PO DAILY 03/31/24 05/24/24 03/30/24 18:00 History ascorbate calcium (vitamin C) 500 500 mg PO DAILY 05/24/24 05/24/24 Unknown History mg tablet ferrous sulfate 325 mg (65 mg 325 mg PO DAILY 05/24/24 05/24/24 Unknown History iron) tablet,delayed release Physical Exam Vital Signs and Narrative: Vital Signs: Last Vital Signs Temp 98.0 F 07/09/24 21:05 Pulse 60 07/09/24 21:05 Resp 15 07/09/24 21:05 BP 116/68 07/09/24 21:05 Pulse Ox 98 07/09/24 21:05 O2 Del Method Room Air 07/09/24 21:05 BMI result Body Mass Index 20.8 Elderly male lying in bed in no distress Neck supple, no JVD Irregularly irregular, S1-S2 heard Regular breath sounds bilaterally, no wheezing or crackles appreciated Abdomen soft nontender, no guarding, no rigidity Patient is awake, alert and oriented to self, place, time and person ; no focal motor deficit Psych: Normal mood No pedal edema Results Labs 07/09/24 19:30 07/09/24 19:30 Labs: Laboratory Results - last 24 hr 07/09/24 07/09/24 19:30 19:31 MCV 90.5 MCH 29.9 MCHC 33.1 RDW 12.5 Plt Count 179 D MPV 9.3 L Immature Gran % (Auto) 0.3 Neut % (Auto) 66.7 Lymph % (Auto) 18.5 L [place] % (Auto) 10.1 Eos % (Auto) 3.8 Baso % (Auto) 0.6 Lymph # (Auto) 1.3 [place] # (Auto) 0.7 Eos # (Auto) 0.3 Baso # (Auto) 0.0 Abs Immat Gran (auto) 0.02 Absolute Neuts (auto) 4.6 Absolute Nucleated RBC 0.000 Nucleated RBC % (auto) 0.0 PT 11.5 INR 1.0 Anion Gap 11 L Estim Creat Clear Calc 36.0 Estimated GFR 52 Random Glucose 103 Calcium 8.9 D Total Bilirubin 0.4 Direct Bilirubin 0.1 AST 23 ALT 21 Alkaline Phosphatase 50 Total Protein 6.6 Albumin 4.1 Blood Type A Negative Antibody Screen NEGATIVE Assessment and Plan (1) Acute GI bleeding: Status: Acute Plan This is a 89-year-old male with pertinent history of permanent atrial fibrillation not on anticoagulation, osteopenia who presents to the emergency department for evaluation of GI bleed. #. Acute GI bleed: Will admit patient with cardiac monitoring. Hold aspirin and Plavix. Consulting Gastroenterology, appreciate assistance. Bleeding scan pending. Closely monitor H&H #. Permanent atrial fibrillation: Not on anticoagulation. Continue rate and rhythm controlling agents Med rec pending DVT prophylaxis: Mechanical Full code Admit as inpatient and will require two night minimum hospital stay for evaluation of acute GI bleed, close monitoring of hemodynamics, close monitoring of H&H (as above), which is not possible in a lesser acute setting. Specialist consult pending Quality Stroke Does the patient have a stroke diagnosis?: No VTE Prior VTE?: No VTE Risk Level:: Medical - moderate - high VTE Device Contraindication: N/A - Device Ordered VTE Drug Contraindication: Treatment Not Indicated
[2024-07-09] MEDS: Pantoprazole Sodium 40 MG/10 ML VIAL IVPUSH (22:25)
[2024-07-09] MEDS: Lactated Ringers 1,000 ML 999 ML IV (22:26)
[2024-07-09] MEDS: iohexoL 350 MG/ML 100 ML INFUS..BTL 80 ML IV (22:53)
[2024-07-09 23:26] VITALS: BP 139/68; PULSE 60; RESP 18; TEMP 36.4; O2SAT 99
[2024-07-10 00:44] LABS: Hematocrit 28.7 % (42.0-52.0); Hemoglobin 9.6 g/dl (14.0-18.0); Mean Corpuscular HGB Conc 33.4 g/dl (31.0-36.0); Mean Corpuscular Hemoglobin 29.8 pg (27.0-33.0); Mean Corpuscular Volume 89.1 fL (80.0-98.0); Mean Platelet Volume 9.4 fL (9.4-12.4); Platelet Count 146 X10*3/uL (160-400); Red Blood Count 3.22 X10*6/uL (4.60-5.80); Red Cell Distribution Width 12.8 % (11.0-16.0); White Blood Count 5.6 X10*3/uL (4.8-10.8)
[2024-07-10 01:02] VITALS: BP 116/64; PULSE 56; RESP 18; TEMP 37.2; O2SAT 98
--- NOTE | 2024-07-10 01:20 | PC.NURSE ---
report given to Yunior OSPINA at [facility] ED.
--- NOTE | 2024-07-10 01:47 | PC.NURSE ---
ems at bedside for report and transfer to [facility]
[2024-07-10 01:59] VITALS: BP 116/64; PULSE 56; RESP 18; TEMP 37.2; O2SAT 98
== END 2024-07-10 02:01 | disposition short-term general hospital (02) | DRG 378 ==
LOC: HO.ED 19:53 → HO.EDOVER 22:32
PROVIDERS: Nurse Practitioner Family; Admitting Provider Student in an Organized Health Care Education/Training Program; Emergency Provider Internal Medicine; PCP Internal Medicine; Visit Provider Student in an Organized Health Care Education/Training Program
DX: K92.2 Gastrointestinal hemorrhage, unspecified (principal); I48.21 Permanent atrial fibrillation; Z79.02 Long term (current) use of antithrombotics/antiplatelets; Z79.899 Other long term (current) drug therapy
CPT/HCPCS: 36415; 74178; 80048; 80076; 85025; 85027; 85610; 86850; 86900; 86901; 93005; 99285; J2470; J7120; Q9967

== ENCOUNTER → 2024-07-09 19:12 | Outpatient (BNV) | payer MEDICARE, SELFPAY | PROVIDERS: Admitting Provider Student in an Organized Health Care Education/Training Program; Emergency Provider Internal Medicine; PCP Internal Medicine; Visit Provider Internal Medicine | DX: R53.1 Weakness (principal) | CPT/HCPCS: 93010 ==

== ENCOUNTER → 2024-07-09 22:19 | Outpatient (BNV) | payer MEDICARE, SELFPAY | PROVIDERS: Admitting Provider Student in an Organized Health Care Education/Training Program; Emergency Provider Internal Medicine; PCP Internal Medicine; Visit Provider Student in an Organized Health Care Education/Training Program | DX: K92.2 Gastrointestinal hemorrhage, unspecified (principal) | CPT/HCPCS: 99222 ==

== ENCOUNTER → 2024-08-16 09:52 | Outpatient (BNVA) | payer MEDICARE, SELFPAY | PROVIDERS: PCP Internal Medicine; Visit Provider Internal Medicine Cardiovascular Disease ==

== ENCOUNTER 2024-10-03 09:04 | Outpatient (REF) | payer MEDICARE, SELFPAY ==
--- NOTE | ~2024-10-03 | MM_ITS ---
EXAMINATION: DXA BONE DENSITY AXIAL HISTORY: Estrogen deficiency TECHNIQUE: [employer] Dual energy absorptiometry (DEXA) of the lumbar spine, total left hip, and femoral neck was performed. COMPARISON: Comparison is made with the prior examination dated 05/06/2017. FINDINGS: The bone mineral density of the lumbar spine is 1.073 with a T-score of -1.2, and a Z-score of -0.1. This represents a BMD change of -2.4% compared to the prior exam. This is not statistically significant. The bone mineral density of the left total hip is 0.858 with a T-score of -1.7, and a Z-score of 0.1. This represents BMD change of -1.0% compared to the prior exam. This is not statistically significant. The bone mineral density of the left femoral neck is 0.763 with a T-score of -2.4, and a Z-score of -0.3. This represents BMD change of -1.5% compared to the prior exam. FRACTURE RISK: The FRAX index suggests a ten year probability of major osteoporotic fracture of 15.2%, and of hip fracture 11.9%. MM/XR DEXA axial skeleton IMPRESSION: Based on bone mineral density, and according to World Health Organization (WHO) criteria, the diagnosis is consistent with osteopenia. All bone density values are in grams per centimeter squared (g/cm2). Statistically, 68% of repeat scans fall within 1 SD (+/- 0.010 g/cm2 for AP spine L1-L4) and 1 SD (+/- 0.012 g/cm2 for femur total) Electronically signed by: Lee Asif MD 10/03/2024 09:55 AM EST
== END 2024-10-03 09:05 | disposition home or self-care (01) ==
LOC: HO.MAMMO 09:04
PROVIDERS: PCP Internal Medicine; Visit Provider Nurse Practitioner Adult Health
DX: Z13.820 Encounter for screening for osteoporosis (principal); M81.0 Age-related osteoporosis without current pathological fracture
CPT/HCPCS: 77080

== ENCOUNTER → 2024-10-03 09:15 | Outpatient (BNV) | payer MEDICARE, SELFPAY | PROVIDERS: PCP Internal Medicine; Visit Provider Radiology Diagnostic Radiology | DX: M81.0 Age-related osteoporosis without current pathological fracture (principal) | CPT/HCPCS: 77080 ==

== ENCOUNTER 2024-10-23 14:13 | Outpatient (AMB) | payer MEDICARE, SELFPAY ==
--- NOTE | 2024-10-23 14:20 | MHC.OFFVIS ---
Vital Signs 10/23/24 14:21 Height 5 ft 10 in Weight 143 lb 4.807 oz BMI 20.6 BP 120/70 Blood Pressure Location Lt brachial Position Sitting Pulse 71 Intake Visit Reasons: follow-up dx afib Intake Note: Follow-up with ekg dx afib c/o afib more often Ambulance Dispatcher Required: No Allergies midodrine Allergy (Intermediate, Verified 07/09/24 19:16) Itchy red rash head to toe metoprolol Adverse Reaction (Verified 07/09/24 19:16) Unknown novacain Allergy (Unknown, Uncoded 03/30/24 21:16) syncope Medication List - Last Reconciled 10/23/24 by Mateo Prado MD alendronate 70 mg PO SANTANA ascorbate calcium (vitamin C) 500 mg PO DAILY calcium carbonate (Calcium 600) 600 mg PO BID clopidogrel 75 mg PO DAILY desoximetasone 0.25% 1 appl topical DAILY PRN diltiazem HCl 30 mg PO BID dronedarone (Multaq) 400 mg PO BID ferrous sulfate 325 mg PO DAILY multivitamin 1 tab PO DAILY vitamins A,C,B-xzio-hpexph 4,296 mcg-226 mg-90 mg (PreserVision AREDS) 1 cap PO BID HPI Comments Details: Bill comes for follow-up. He said he has been getting increasing symptoms of palpitations and dizziness. His symptoms of dizziness are difficult to discern as he was had these symptoms in the past in setting of without having atrial flutter. Although notices fast heart rate. He is status post Watchman device in June. Currently on Multaq therapy which is not adequate in maintaining his rhythm has had getting more frequent atrial fibrillation/flutter. [facility] Medical History Osteopenia Enlarged thoracic aorta Paroxysmal atrial fibrillation Surgical History Hx of prostate biopsy Hx of cataract surgery Hx of hernia repair Hx of appendectomy Hx of basal cell carcinoma excision Hx of colonoscopy Family History Father Throat cancer Mother Parkinson disease Social History Household Members: Spouse Housing: House Do you presently have visiting nurse or other home services: No Alcohol intake: never Comment: PT REFUSE BED ALARM Patient Tobacco Use Status: Former Tobacco user service: No Current occupational status: retired Review of Systems Const Denies chills, Denies fatigue, Denies fever(s), Denies frequent falls, Denies weakness, Denies weight gain and Denies weight loss ENT Denies dizziness Card Denies chest pain, Denies leg edema, Denies lightheadedness, Denies palpitations, Denies dyspnea, Denies dyspnea on exertion, Denies orthopnea and Denies other (loss of consciousness) Resp Denies cough, Denies dyspnea and Denies dyspnea on exertion GI Denies hematochezia and Denies change in stool character Musc Denies abnormal gait, Denies muscle weakness, Denies numbness, Denies radiating pain into limb and Denies tingling Neuro Denies abnormal gait, Denies dizziness, Denies frequent falls, Denies numbness, Denies tingling and Denies weakness Endo Denies fatigue and Denies palpitations Physical Exam Vital Signs: Last Vital Signs Pulse 71 10/23/24 14:21 BP 120/70 10/23/24 14:21 BMI result Body Mass Index 20.6 Const General: healthy appearing (Except for a thin build, and underweight.), comfortable, no acute distress, alert and awake Orientation/consciousness: patient oriented x3 HEENT Head: Yes normal to inspection General nose exam: No nasal polyps present, No nasal discharge present and Other nasal findings present (Has mild nasal congestion on both sides) Face and sinus: Yes sinuses nontender Mouth: oropharynx normal Throat: Yes posterior oropharynx normal Eyes General: appearance normal, both eyes and all related structures Neck Neck: Yes normal visual inspection, Yes no lymphadenopathy, Yes trachea midline and Yes no JVD Thyroid: Thyroid normal Chest Chest palpation & inspection: normal inspection of the chest, normal palpation of entire chest wall and no tenderness Resp Other: Percussion note resonant, has good equal breath sounds on both sides. There are NO inspiratory crepitations over basilar areas, AND NO WHEEZES . Cardio Palpation: normal PMI Rate: regular rate Rhythm: abnormal rhythm regularly irregular Heart sounds: S1 normal heart sound present, S2 normal heart sound present, no gallops and no murmurs Peripheral pulses: Peripheral pulses 2+ throughout GI Palpation (GI): Soft to palpation, nontender, No hepatosplenomegaly present and no masses Auscultation: normal bowel sounds Back/Spine/Pelvis Thoracic/Lumbar Spine: thoracic and lumbar spine normal to inspection Skin General skin exam: no rashes or lesions noted Neuro General: patient oriented x3 and no focal motor deficits Cranial nerves: Yes CN's II-XII intact bilaterally Extrem General: Yes normal to inspection, Yes no clubbing, cyanosis or edema and Yes no calf tenderness Psych Appearance: grossly normal and well kempt Speech and movement: Normal speech and movement present Office Procedures EKG Details: EKG shows atrial flutter with 4 is to 1 conduction [id number], Complete Assessment & Plan Assessment & Plan (1) Atrial flutter: Code(s): I48.92 - Unspecified atrial flutter Category: Medical Plan: Recurrent now more organized atrial flutter with 4 is to 1 conduction dual therapy. Has failed Multaq therapy. This will be discontinued. Will switch to increase Cardizem 60 mg b.i.d. given his prior low blood pressure history and symptoms of orthostatic dizziness. Will require ablation. Will refer him to EPS for the same. (2) Paroxysmal atrial fibrillation: Comment: BEING TR CONTROLLED WITH THE LOW DOES BETA EUNICE ALSO HE IS ON ANTICOAGULATION. Code(s): I48.0 - Paroxysmal atrial fibrillation Category: Medical Plan: Paroxysmal atrial fibrillation with recurrent symptoms. In the past had atrial fibrillation. Will require rhythm control approach. Can not take amiodarone therapy given his interstitial fibrosis. Other options include sotalol and Tikosyn. However given his atrial flutter as well I think he will benefit from ablation therapy. Discussed with him. Will refer him to EPS. He is in good functional status overall. Status post Watchman device and currently on dual antiplatelet therapy continue the same. Will follow with him after ablation. Thank you for allowing me to partake in his care Coding Level of Care Code Est Pt Level 4 (21333) Complex EM visit Add On G2211 Diagnoses Atrial flutter I48.92 Paroxysmal atrial fibrillation I48.0 CPT Codes EKG - CPT: 30279-[id number], Complete ([id number])
[2024-10-23 14:21] VITALS: BP 120/70; PULSE 71; BMI 20.6
--- OUTSIDE RECORDS SUMMARY | 2024-10-23 15:33 | XMS_ITS ---
Author Organization [facility] Address [address] [place] [address] Care Team Providers Care Animator Name Role Phone Giancarlo Almendarez MD Primary Care Provider Yoly Luke Jr, Vic Unavailable Ree Hazel Unavailable Unavailable REASON FOR VISIT would like to speak to you . has questions Encounters Encounter Location Date Provider Diagnosis [facility] [address] [place] [address] 08/15/2024 Vic Luke Jr PLAN OF TREATMENT Next Appt Details Provider Name:Vic tai Jr, 11/27/2024 10:40:00 AM, [address] [place] [address], [address], [place], [address],
--- OUTSIDE RECORDS SUMMARY | 2024-10-23 15:33 | XMS_ITS ---
Author Organization [facility] Address [address] [place] [address] Care Team Providers Care Braille Teacher Name Role Phone Giancarlo Almendarez MD Primary Care Provider Vic Cao Jr Ree Hazel Unavailable Unavailable REASON FOR VISIT labs Encounters Encounter Location Date Provider Diagnosis [facility] [address] [place] [address] 06/28/2024 Vic Luke Jr PLAN OF TREATMENT Next Appt Details Provider Name:Vic tai Jr, 11/27/2024 10:40:00 AM, [address] [place] [address], [address], [place], [address],
--- OUTSIDE RECORDS SUMMARY | 2024-10-23 15:33 | XMS_ITS ---
Author Organization [facility] Address [address] [place] [address] Care Team Providers Care Fine Sander Name Role Phone Giancarlo Almendarez MD Primary Care Provider Vic Cao Jr [phone] Ree Hazel Unavailable Unavailable REASON FOR VISIT update Encounters Encounter Location Date Provider Diagnosis [facility] [address] [place] [address] 07/10/2024 Vic Luke Jr PLAN OF TREATMENT Next Appt Details Provider Name:Vic tai Jr, 11/27/2024 10:40:00 AM, [address] [place] [address], [address], [place], [address],
--- OUTSIDE RECORDS SUMMARY | 2024-10-23 15:34 | XMS_ITS | Patient Health Record ---
Author Organization [facility] Address [address] [place] [address] Care Team Providers Care Brasswind Instrument Repairer Name Role Phone Giancarlo Almendarez MD Primary Care Provider Vic Cao Jr Unavailable [phone] Ree Hazel Unavailable Unavailable ALLERGIES Allergen (clinical drug ingredient) Drug/Non Drug Allergy documented on EMR Reaction Allergy Type Onset Date Status nov Unknown Drug Allergy Active REASON FOR REFERRAL No Information MEDICATIONS Medication SIG (Take, Route, Frequency, Duration) Notes Start Date End Date Status Dronedarone HCl 400 MG 1 tablet with alessandro ls Orally Twice a day for 30 day(s) Active Multaq 400 MG Oral for 30 Acti ve dilTIAZem HCl 30 MG as directed Orally Active Vitamin C 500 MG as directed Orally Active Alendronate Sodium 70 MG 1 tablet Orally Active Desoximetasone 0.25 % 1 application Exte rnally Twice a day/prn Active metroNIDAZOLE 0.75 % 1 application to affected area Externally Twice a day/prn Active Copper 5 MG as directed Orally Active Multi Vitamin/Minerals 1 1 Orally QD Active Vitamin E 100 UNIT as directed Orally Active Calcium 1200 5050-2454 MG-UNIT 1 tablet with a meal Orally Once a day Active Vitamin A 02968 UNIT 1 capsule with food or milk Orally Once a day for 30 day(s) Active Aspir-81 81 MG 1 tablet Orally Once a day Active Multivitamin - as directed Orally Active Eye Vitamins 1 2 Orally QD Act rick Ferrous Sulfate 325 MG as directed Orally Active IMMUNIZATIONS Vaccine Route Administration Date Status Comme nts Flu vaccine no Preserv 3 and > Unknown 07/25/2014 Admin istered Influenza Unknown 07/06/2023 Administered SOCIAL HISTORY Sex Assigned At : Social History Observation Description Sex Assigned At Unknown PROBLEMS Problem Type ICD Code Onset Dates Problem Status W/U Status Risk SNOMED Code Notes Problem Diverticulosis of colon with hemorrhage (K57.31) Active confirmed 320810979 VITAL SIGNS Temperature 97.1 degrees Fahrenheit 05/29/2024 Blood pressure diastolic 00 mm Hg 05/29/2024 Height 70.5 in 05/29/2024 Blood pressure systolic 000 mm Hg 05/29/2024 Weight 144 lb 6 oz lbs 05/29/2024 BMI 20.42 kg/m2 05/29/2024 Encounters Encounter Location Date Provider Diagnosis [facility] [address] [place] [phone] 05/29/2024 Vic Luke Jr Diverticulosis of colon with hemorrhage K57.31 [facility] [address] [place] [address] 04/05/2024 Vic Luke Jr Diverticulosis of colon with hemorrhage K57.31 [facility] [address] [place] [phone] 04/11/2024 Vic Luke Jr Gastrointestinal hemorrhage, unspecified gastrointestinal hemorrhage type K92.2 [facility] [address] [place] [address] 05/11/2024 Vic Luke Jr [facility] [address] [place] [phone] 06/28/2024 Vic Luke Jr [facility] [address] [place] [phone] 07/10/2024 Vci Luke Jr [facility] [address] [place] [address] 08/15/2024 Vic Luke Jr ASSESSMENTS Encounter Date Diagnosis Assessment Notes Treatment Notes Treatment Clinical Notes 05/29/2024 Diverticulosis of co bertha with hemorrhage (ICD-10 - K57.31) Labs to be done in 04/05/2024 Diverticulosis of co bertha with hemorrhage (ICD-10 - K57.31) 04/11/2024 Gastrointestinal hemorrhage, unspecified gastrointestinal hemorrhage type (ICD-10 - K92.2) PLAN OF TREATMENT Pending Test Test Name Order Date IRON + IBC (FE) 05/29/2024 IRON + IBC (FE) 04/05/2024 FERRITIN 05/29/2024 FERRITIN 04/05/2024 CBC w/o DIFF 04/11/2024 CBC w/o DIFF 05/29/2024 CBC w/o DIFF 04/05/2024 Future Test Test Name Order Date COLONOSCOPY 05/16/2015 Next Appt Details Provider Name:Vic tai Jr, 11/27/2024 10:40:00 AM, [address] [place] [address], [address], [place], [address], Insurance Providers Payer Name Payer Address Payer Phone Subscriber Number Group Number Insured Name Patient Relationship to Insured Coverage Start Date Coverage End Date MEDICARE OF [place] [address] [place] [address] [id number] NAHUM GILES Self - patient is the insured [employer] ATT[employer] CLAIMS [address] [place] [address] [id number] NAHUM GILES Self - patient is the insured MEDICAL (GENERAL) HISTORY Medical History History ICD Code Colonoscopy 11/12/2008--1 sm all tubular adenoma, diverticulosis, and internal hemorrhoids9 Atrial fibrillation Osteoporosis Interstitial lung disease Enlarged thoracic aorta Surgical History Surgery Date(Month/Year) appendectomy
== END 2024-10-23 14:55 | disposition home or self-care (01) ==
PROVIDERS: PCP Internal Medicine; Visit Provider Internal Medicine Cardiovascular Disease
DX: I48.92 Unspecified atrial flutter (principal); I48.0 Paroxysmal atrial fibrillation
CPT/HCPCS: 93010; 99214; G2211

== ENCOUNTER → 2024-10-23 14:13 | Outpatient (BNVA) | payer MEDICARE, SELFPAY | PROVIDERS: PCP Internal Medicine; Visit Provider Internal Medicine Cardiovascular Disease | DX: I48.92 Unspecified atrial flutter (principal); I48.0 Paroxysmal atrial fibrillation; R94.31 Abnormal electrocardiogram [ECG] [EKG] | CPT/HCPCS: 93005; 99212 ==

== ENCOUNTER 2025-01-08 13:17 | Outpatient (AMB) | payer MEDICARE, SELFPAY ==
--- NOTE | 2025-01-08 13:21 | MHC.OFFVIS ---
Vital Signs 01/08/25 13:25 Height 5 ft 10 in Weight 147 lb 11.355 oz BMI 21.2 BP 120/66 Blood Pressure Location Lt brachial Position Sitting Pulse 63 Intake Visit Reasons: 6m follow up Intake Note: 6 month follow-up with ekg had ablation Wednesday feeling better but today has a headache Package Delivery Room Service Runner Required: No Allergies midodrine Allergy (Intermediate, Verified 07/09/24 19:16) Itchy red rash head to toe metoprolol Adverse Reaction (Verified 07/09/24 19:16) Unknown novacain Allergy (Unknown, Uncoded 03/30/24 21:16) syncope Medication List - Last Reconciled 01/08/25 by Mateo Prado MD alendronate 70 mg PO SANTANA aspirin (Adult Aspirin Regimen) 81 mg PO DAILY calcium carbonate (Calcium 600) 600 mg PO BID desoximetasone 0.25% 1 appl topical DAILY PRN diltiazem HCl 60 mg (2 x 30 mg) PO BID dronedarone (Multaq) 400 mg PO BID multivitamin 1 tab PO DAILY rivaroxaban (Xarelto) 20 mg PO DAILY vitamins A,C,K-fspz-dkkrwb 4,296 mcg-226 mg-90 mg (PreserVision AREDS) 1 cap PO BID HPI Comments Details: Bill comes for follow-up. Only few days ago he underwent ablation procedure for his atrial fibrillation/flutter. Do not have a copy of the report. He was started on Xarelto 20 mg and dual antiplatelet therapy was switch to aspirin therapy. Also was restarted on Multaq therapy. He has been doing well and says he has had no irregular heartbeat. Blood pressure also more regular. He overall feels well has slight headache today. No lightheadedness, syncope. No exertional chest pain or shortness of breath. No heart failure symptoms. [facility] Medical History Osteopenia Enlarged thoracic aorta Paroxysmal atrial fibrillation Surgical History Hx of prostate biopsy Hx of cataract surgery Hx of hernia repair Hx of appendectomy Hx of basal cell carcinoma excision Hx of colonoscopy Family History Father Throat cancer Mother Parkinson disease Social History Household Members: Spouse Housing: House Do you presently have visiting nurse or other home services: No Alcohol intake: never Comment: PT REFUSE BED ALARM Patient Tobacco Use Status: Former Tobacco user service: No Current occupational status: retired Review of Systems Const Denies chills, Denies fatigue, Denies fever(s), Denies frequent falls, Denies weakness, Denies weight gain and Denies weight loss ENT Denies dizziness Card Denies chest pain, Denies leg edema, Denies lightheadedness, Denies palpitations, Denies dyspnea, Denies dyspnea on exertion, Denies orthopnea and Denies other (loss of consciousness) Resp Denies cough, Denies dyspnea and Denies dyspnea on exertion GI Denies hematochezia and Denies change in stool character Musc Denies abnormal gait, Denies muscle weakness, Denies numbness, Denies radiating pain into limb and Denies tingling Neuro Denies abnormal gait, Denies dizziness, Denies frequent falls, Denies numbness, Denies tingling and Denies weakness Endo Denies fatigue and Denies palpitations Physical Exam Vital Signs: Last Vital Signs Pulse 63 01/08/25 13:25 BP 120/66 01/08/25 13:25 BMI result Body Mass Index 21.2 Const General: healthy appearing (Except for a thin build, and underweight.), comfortable, no acute distress, alert and awake Orientation/consciousness: patient oriented x3 HEENT Head: Yes normal to inspection General nose exam: No nasal polyps present, No nasal discharge present and Other nasal findings present (Has mild nasal congestion on both sides) Face and sinus: Yes sinuses nontender Mouth: oropharynx normal Throat: Yes posterior oropharynx normal Eyes General: appearance normal, both eyes and all related structures Neck Neck: Yes normal visual inspection, Yes no lymphadenopathy, Yes trachea midline and Yes no JVD Thyroid: Thyroid normal Chest Chest palpation & inspection: normal inspection of the chest, normal palpation of entire chest wall and no tenderness Resp Other: Percussion note resonant, has good equal breath sounds on both sides. There are NO inspiratory crepitations over basilar areas, AND NO WHEEZES . Cardio Palpation: normal PMI Rate: regular rate Rhythm: abnormal rhythm regularly irregular Heart sounds: S1 normal heart sound present, S2 normal heart sound present, no gallops and no murmurs Peripheral pulses: Peripheral pulses 2+ throughout GI Palpation (GI): Soft to palpation, nontender, No hepatosplenomegaly present and no masses Auscultation: normal bowel sounds Back/Spine/Pelvis Thoracic/Lumbar Spine: thoracic and lumbar spine normal to inspection Skin General skin exam: no rashes or lesions noted Neuro General: patient oriented x3 and no focal motor deficits Cranial nerves: Yes CN's II-XII intact bilaterally Extrem General: Yes normal to inspection, Yes no clubbing, cyanosis or edema and Yes no calf tenderness Psych Appearance: grossly normal and well kempt Speech and movement: Normal speech and movement present Office Procedures EKG Details: EKG shows normal sinus rhythm normal EKG at 63 beats per minute [id number], Complete Assessment & Plan Assessment & Plan (1) Paroxysmal atrial fibrillation: Comment: BEING TR CONTROLLED WITH THE LOW DOES BETA EUNICE ALSO HE IS ON ANTICOAGULATION. Code(s): I48.0 - Paroxysmal atrial fibrillation Category: Medical Plan: Paroxysmal atrial fibrillation/flutter in this elderly gentleman which is highly symptomatic. He had interstitial lung disease related to amiodarone therapy in the symptoms were not well controlled Multaq therapy although partially controlled. He was very symptomatic with symptoms of mostly dizziness which would not always correlating with his atrial fibrillation episode. Currently status post ablation and he is feeling well. He has not had any recurrent episodes of atrial fibrillation. Will continue Multaq therapy for now. Was started on Xarelto therapy due to endocardial ablation for now, will discuss with electrophysiology for the length of therapy as he has prior history of GI bleed. Will hold aspirin therapy. (2) Enlarged thoracic aorta: Comment: 3.9 cm Code(s): I77.89 - Other specified disorders of arteries and arterioles Category: Medical Plan: Enlarged thoracic aorta with well controlled blood pressure. Continue aggressive blood pressure control. No interventions required per se. Follow up in the clinic in 3 months time, sooner p.r.n.. Thank you for allowing me to partake in his care Coding Level of Care Code Est Pt Level 4 (72250) Complex EM visit Add On G2211 Diagnoses Paroxysmal atrial fibrillation I48.0 Enlarged thoracic aorta I77.89 CPT Codes EKG - CPT: 87084-Cakmsiahriouoydto, Complete ([id number])
[2025-01-08 13:25] VITALS: BP 120/66; PULSE 63; BMI 21.2
== END 2025-01-08 13:51 | disposition home or self-care (01) ==
LOC: HO.HCS 13:18
PROVIDERS: PCP Internal Medicine; Visit Provider Internal Medicine Cardiovascular Disease
DX: I48.0 Paroxysmal atrial fibrillation (principal); I77.89 Other specified disorders of arteries and arterioles
CPT/HCPCS: 93010; 99214; G2211

== ENCOUNTER → 2025-01-08 13:17 | Outpatient (BNVA) | payer MEDICARE, SELFPAY | PROVIDERS: PCP Internal Medicine; Visit Provider Internal Medicine Cardiovascular Disease | DX: I48.0 Paroxysmal atrial fibrillation (principal); I77.89 Other specified disorders of arteries and arterioles; Z79.899 Other long term (current) drug therapy | CPT/HCPCS: 93005; 99212 ==